=== PATIENT | male | born 1960 | race Hispanic/Latino ===

== ENCOUNTER → 2017-05-29 | Emergency (ER) | payer BC ==
[~2017-05-29] MED LIST: DILAUDID IV ONE; DILAUDID ONE; FLOMAX PO ONE; NORCO 10/325 PO ONE; TORADOL IV ONE; ZOFRAN IV ONE; ZOFRAN ODT ONE
[2017-05-29 18:57] VITALS: BP 152/88
[2017-05-29 19:32] LABS: Basophils % (Auto) 0.3 % (0.0-1.8); Eosinophils % (Auto) 0.2 % (0.0-4.3); Hematocrit 48.3 % (35.5-45.6); Hemoglobin 16.6 gm/dl (11.8-15.2); Lymphocytes # (Auto) 0.9 K/mm3 (1.2-5.4); Lymphocytes % (Auto) 7.3 % (13.4-35.0); Mean Corpuscular HGB Conc 34 % (32-34); Mean Corpuscular Hemoglobin 32 pg (28-32); Mean Corpuscular Volume 93 fl (84-94); Monocytes # (Auto) 0.5 K/mm3 (0.0-0.8); Monocytes % (Auto) 4.1 % (0.0-7.3); Platelet Count 210 K/mm3 (140-440); Red Blood Count 5.21 M/mm3 (3.65-5.03); Red Cell Distribution Width 13.5 % (13.2-15.2)
[2017-05-29 19:39] LABS: Alanine Aminotransferase 15 units/L (7-56); Albumin 4.8 g/dL (3.9-5); BUN/Creatinine Ratio 14; Blood Urea Nitrogen 13 mg/dL (9-20); Calcium 9.3 mg/dL (8.4-10.2); Hemolysis Index 40; Lipase 37 units/L (13-60)
[2017-05-29 19:46] LABS: Bilirubin,Direct < 0.2 mg/dL (0-0.2)
--- NOTE | 2017-05-29 20:25 | Cat Scan Report ---
FINAL REPORT EXAM: CT ABDOMEN PELVIS WO CON HISTORY: llq pain h/o KS TECHNIQUE: CT of the abdomen and pelvis without IV contrast. Coronal and sagittal reconstructed imaging provided. PRIORS: None currently available. FINDINGS: ABDOMEN: Kidneys: 3.6 mm stone mid right kidney. 2.1 mm stone mid to inferior right kidney. 1-2 mm stones in the inferior right kidney. 4.9 mm stone mid to inferior right kidney. Large stone at the right renal pelvis measures 5.7 x 12.4 mm. 1.4 mm stone inferior left kidney. 2 mm stone inferior left kidney. 4.1 mm stone at the left renal pelvis. Localized hydronephrosis to the inferior right renal collecting system which appears mild. No hydronephrosis elsewhere in the right kidney. No left hydronephrosis. Series 2:305 3.4 mm stone approximately 1.6 cm from the left UVJ in the distal left ureter. Liver, gallbladder, stomach, spleen, pancreas, and adrenals are unremarkable. IVC is intact. Mild aortic atherosclerotic disease. No aneurysm. No periaortic or retroperitoneal mass or adenopathy. Colonic diverticulosis. Mild stool in the colon. No wall thickening or inflammatory changes. Appendix is normal. Terminal ilium is unremarkable. Small bowel loops are unremarkable. No obstructive pattern. No free air. No free fluid. PELVIS: Bladder is unremarkable. There is no pelvic mass or adenopathy. Fat containing bilateral inguinal hernias. No strangulation. Bones: No suspicious osseous lesions on this limited examination of the skeleton. Metastatic disease better evaluated with bone scan. IMPRESSION: Bilateral renal stones. Large stones in the right and left renal pelvis. Localized right hydronephrosis to the inferior pole. No left hydronephrosis. Also suspect 3.4 mm stone at the distal left ureter. No acute bowel findings.
--- NOTE | 2017-05-29 23:02 | Emergency Department Report ---
ED General Adult HPI - General Chief complaint: Abdominal Pain Stated complaint: ABD PAIN Time Seen by Provider: 05/29/17 19:28 Source: patient Mode of arrival: Ambulatory Limitations: No Limitations - History of Present Illness Initial comments: Patient is a 56-year-old male past medical history of kidney stones who presents with left flank pain that's been going on for last couple days. Patient states the pain is a 10 out of 10 as an achy type of pain nothing makes it better or worse. The pain radiates to his groin. Patient states that the pain is similar to when he had kidney stones in the past. Patient is nauseous but hasn't vomited. Patient denies having any trauma or any blood in his urine. Patient works for [employer]. Severity scale (0 -10): 10 - Related Data Home Medications Medication Instructions Recorded Confirmed Last Taken Levothyroxine [Synthroid] 50 mcg PO DAILY 05/29/17 05/29/17 Unknown Previous Rx's Medication Instructions Recorded Last Taken Type HYDROcodone/APAP 7.5-325 [[place] 1 each PO Q6HR PRN #13 tablet 05/29/17 Unknown Rx 7.5/325] Meloxicam [Mobic] 15 mg PO DAILY #15 tablet 05/29/17 Unknown Rx Ondansetron [Zofran Odt] 4 mg PO Q8H PRN #20 tab.rapdis 05/29/17 Unknown Rx Tamsulosin HCl [Flomax] 0.4 mg PO QDAY #15 cap.er.24h 05/29/17 Unknown Rx Allergies Allergy/AdvReac Type Severity Reaction Status Date / Time No Known Allergies Allergy Unverified 08/17/13 08:43 ED Review of Systems ROS: Stated complaint: ABD PAIN Other details as noted in HPI Constitutional: denies: chills, fever Eyes: denies: eye pain, eye discharge, vision change ENT: denies: ear pain, throat pain Respiratory: denies: cough, shortness of breath, wheezing Cardiovascular: denies: chest pain, palpitations Endocrine: no symptoms reported Gastrointestinal: abdominal pain, nausea. denies: diarrhea Genitourinary: as per HPI. denies: urgency, dysuria Musculoskeletal: denies: back pain, joint swelling, arthralgia Skin: denies: rash, lesions Neurological: denies: headache, weakness, paresthesias Psychiatric: denies: anxiety, depression Hematological/Lymphatic: denies: easy bleeding, easy bruising ED Past Medical Hx - Past Medical History Previous Medical History?: Yes Hx Kidney Stones: Yes Additional medical history: hypothyroid - Social History Smoking Status: Former Smoker - Medications Home Medications: Home Medications Medication Instructions Recorded Confirmed Last Taken Type HYDROcodone/APAP 7.5-325 [[place] 1 each PO Q6HR PRN #13 tablet 05/29/17 Unknown Rx 7.5/325] Levothyroxine [Synthroid] 50 mcg PO DAILY 05/29/17 05/29/17 Unknown History Meloxicam [Mobic] 15 mg PO DAILY #15 tablet 05/29/17 Unknown Rx Ondansetron [Zofran Odt] 4 mg PO Q8H PRN #20 tab.rapdis 05/29/17 Unknown Rx Tamsulosin HCl [Flomax] 0.4 mg PO QDAY #15 cap.er.24h 05/29/17 Unknown Rx ED Physical Exam - General Limitations: No Limitations General appearance: alert, in no apparent distress - Head Head exam: Present: atraumatic, normocephalic - Eye Eye exam: Present: normal appearance - ENT ENT exam: Present: mucous membranes moist - Neck Neck exam: Present: normal inspection - Respiratory Respiratory exam: Present: normal lung sounds bilaterally. Absent: respiratory distress - Cardiovascular Cardiovascular Exam: Present: regular rate, normal rhythm. Absent: systolic murmur, diastolic murmur, rubs, gallop - GI/Abdominal GI/Abdominal exam: Present: soft, normal bowel sounds, other (left flank tenderness ) - Rectal Rectal exam: Present: deferred - Extremities Exam Extremities exam: Present: normal inspection - Back Exam Back exam: Present: normal inspection - Neurological Exam Neurological exam: Present: alert, oriented X3 - Psychiatric Psychiatric exam: Present: normal affect, normal mood - Skin Skin exam: Present: warm, dry, intact, normal color. Absent: rash ED Course Vital Signs 05/29/17 18:56 Temperature 97.7 F Pulse Rate 77 Respiratory 97 H Rate Blood Pressure 152/88 [Right] - Reevaluation(s) Reevaluation #1: 05/29/17 23:28 Patient is feeling better ED Medical Decision Making - Lab Data Result diagrams: 05/29/17 19:13 05/29/17 19:13 Lab Results 05/29/17 05/29/17 Range/Units 19:13 19:13 WBC 12.0 H (4.5-11.0) K/mm3 RBC 5.21 H (3.65-5.03) M/mm3 Hgb 16.6 H (11.8-15.2) gm/dl Hct 48.3 H (35.5-45.6) % MCV 93 (84-94) fl MCH 32 (28-32) pg MCHC 34 (32-34) % RDW 13.5 (13.2-15.2) % Plt Count 210 (140-440) K/mm3 Lymph % (Auto) 7.3 L (13.4-35.0) % [place] % (Auto) 4.1 (0.0-7.3) % Eos % (Auto) 0.2 (0.0-4.3) % Baso % (Auto) 0.3 (0.0-1.8) % Lymph # 0.9 L (1.2-5.4) K/mm3 [place] # 0.5 (0.0-0.8) K/mm3 Eos # 0.0 (0.0-0.4) K/mm3 Baso # 0.0 (0.0-0.1) K/mm3 Seg Neutrophils % 88.1 H (40.0-70.0) % Seg Neutrophils # 10.6 H (1.8-7.7) K/mm3 Sodium 134 L (137-145) mmol/L Potassium 4.1 (3.6-5.0) mmol/L Chloride 95.9 L (98-107) mmol/L Carbon Dioxide 25 (22-30) mmol/L Anion Gap 17 mmol/L BUN 13 (9-20) mg/dL Creatinine 0.9 (0.8-1.5) mg/dL Estimated GFR > 60 ml/min BUN/Creatinine Ratio 14 % Glucose 93 (75-100) mg/dL Calcium 9.3 (8.4-10.2) mg/dL Total Bilirubin 0.60 (0.1-1.2) mg/dL Direct Bilirubin < 0.2 (0-0.2) mg/dL Indirect Bilirubin 0.4 mg/dL AST 19 (5-40) units/L ALT 15 (7-56) units/L Alkaline Phosphatase 75 (35-129) units/L Total Protein 8.2 (6.3-8.2) g/dL Albumin 4.8 (3.9-5) g/dL Albumin/Globulin Ratio 1.4 % Lipase 37 (13-60) units/L - Radiology Data Radiology results: report reviewed, image reviewed CT abdomen and pelvis: Shows 3.4 mm stone on left distal ureter bilateral reactive meal stones in the right and left renal pelvis - Medical Decision Making Chief medical diagnosis: Left renal stone Differential medical diagnosis: pancreatitis, cholelithiasis, UTI I will give patient IV pain medicine, CBC, CMP, CT scan, urinalysis CT scan is concerning for left renal stone. Patient's renal stone is small enough that it will pass. I will give the patient follow-up for urology and I will give patient oral pain medication patient agrees with plan. Additional verbal discharge instructions were given. Critical care attestation.: If time is entered above; I have spent that time in minutes in the direct care of this critically ill patient, excluding procedure time. ED Disposition Clinical Impression: Calculus of left kidney, Left flank pain Nausea & vomiting Qualifiers: Vomiting type: unspecified Vomiting Intractability: unspecified Qualified Code( s): R11.2 - Nausea with vomiting, unspecified Disposition: DC-01 TO HOME OR SELFCARE Is pt being admited?: No Does the pt Need Aspirin: No Condition: Stable Instructions: How to Strain Your Urine (ED), Kidney Stones (ED), Renal Colic ( ED) Prescriptions: HYDROcodone/APAP 7.5-325 [[place] 7.5/325] 1 each PO Q6HR PRN #13 tablet PRN Reason: Pain Meloxicam [Mobic] 15 mg PO DAILY #15 tablet Ondansetron [Zofran Odt] 4 mg PO Q8H PRN #20 tab.rapdis PRN Reason: Nausea Tamsulosin HCl [Flomax] 0.4 mg PO QDAY #15 cap.er.24h Referrals: SINA COLLINS MD [Primary Care Provider] - 3-5 Days DRAIAN SCALES MD [Staff Physician] - 3-5 Days
== END ==
LOC: ED 18:42
DX: N20.0 Calculus of kidney (principal); R11.2 Nausea with vomiting, unspecified
CPT/HCPCS: 36415; 74176; 80048; 80074; 83690; 85025; 96374; 96375; 96376; 99284; J1170; J1885; J2405; Q0162

== ENCOUNTER 2017-06-06 06:30 | Day surgery (SDC) | payer BC ==
[~2017-06-06 06:30] MED LIST changes: +ANCEF/STERILE WATER 2 GM/20 ML 2 GM/20 ML SYRINGE IV NR; -DILAUDID IV ONE; -DILAUDID ONE; -FLOMAX PO ONE; -NORCO 10/325 PO ONE; -TORADOL IV ONE; -ZOFRAN IV ONE; -ZOFRAN ODT ONE
--- NOTE | 2017-06-06 08:02 | XRay Report ---
AP ABDOMEN: HISTORY: Left renal stone, nephrolithiasis, preop for lithotripsy. The abdominal gas pattern is unremarkable. No masses or organomegaly is identified and there is no gross evidence of free air or fluid. Bilateral renal calcifications are suspected. The largest calcification measures 1 cm overlying the right renal hilum. A 7 mm calcification overlies the left renal. 5 mm calcification is suspected overlying the course of the proximal left ureter. IMPRESSION: Bilateral nephrolithiasis.
[2017-06-06] MEDS ORDERED: NACL BACTERIOSTATIC INFILTRATI ONE (08:10)
--- NOTE | 2017-06-06 08:31 | Anesthesia Consultation ---
Anesthesia Consult and Med Hx Date of service: 06/06/17 - Airway Anesthetic Teeth Evaluation: Good ROM Head & Neck: Adequate Mental/Hyoid Distance: Adequate Mallampati Class: Class II Intubation Access Assessment: Probably Good - Pulmonary Exam CTA: Yes - Cardiac Exam Cardiac Exam: RRR - Pre-Operative Health Status ASA Pre-Surgery Classification: ASA2 Proposed Anesthetic Plan: General - Pulmonary Hx Smoking: Yes (STOPPED X 35 YRS) Hx Sleep Apnea: No (JENNIFER PRE SCREEN LOW RISK) - Cardiovascular System Hx Hypertension: No - Gastrointestinal Hx Gastroesophageal Reflux Disease: Yes - Endocrine Hx Hypothyroidism: Yes (ON DAILY MEDS) - Other Systems Hx Cancer: No
--- NOTE | 2017-06-06 08:32 | Anesthesia Day of Surgery ---
Anesthesia Day of Surgery - Day of Surgery Patient Examined: Yes Patient H&P Reviewed: Yes Patient is NPO: Yes
[2017-06-06] MEDS ORDERED: VERSED IV NR (09:00)
[2017-06-06] MEDS ORDERED: PEPCID IV NR (09:00)
[2017-06-06] MEDS ORDERED: NACL 0.9% 1000 ML 1,000 ML IV SCH (09:00)
[2017-06-06] MEDS ORDERED: DIPRIVAN 10 MG/ML IV ONE (09:56)
[2017-06-06] MEDS ORDERED: XYLOCAINE CARDIAC IV ONE ×2 (09:56→09:57)
[2017-06-06] MEDS ORDERED: XYLOCAINE MPF 2% ONE ×2 (09:57→10:01)
[2017-06-06] MEDS ORDERED: ANCEF/STERILE WATER 2 GM/20 ML 2 GM/20 ML SYRINGE IV NR (10:00)
[2017-06-06] MEDS ORDERED: DILAUDID ONE ×3 (10:05→12:40)
[2017-06-06] MEDS ORDERED: NEO SYNEPHRINE/NS Syringe(OR USE) IV ONE (10:14)
[2017-06-06] MEDS ORDERED: WATER FOR IRRIG STERILE IR ONE (10:20)
--- NOTE | 2017-06-06 10:51 | Post Operative Note ---
Date of procedure: 06/13/17 Pre-op diagnosis: bilat stones Post-op diagnosis: same Findings: cysto rpgs r j stent eswl right Procedure: as above Anesthesia: JOANNA Surgeon: SARINA ARNOLD Estimated blood loss: none Pathology: none Condition: stable Disposition: PACU
--- NOTE | 2017-06-06 10:52 | Discharge Summary ---
Short Stay Discharge Plan Activity: other (no straining ) Weight Bearing Status: Full Weight Bearing Diet: regular, low fat, low salt Special Instructions: other (inc fluids ) Durable Medical Equipment Needed Upon Discharge: other (has j stent ) Follow up with: KATHERYN MATIAS MD [Staff Physician] - 7 Days
[2017-06-06] MEDS ORDERED: PERCOCET 5/325 ONE (12:27)
[2017-06-06] MEDS ORDERED: PERCOCET 5/325 PO ONE (12:27)
[2017-06-06] MEDS ORDERED: TRANSDERM-SCOP TD ONE (13:00)
[2017-06-06] MEDS ORDERED: ZOFRAN ONE (13:18)
--- NOTE | 2017-06-06 14:02 | Operative Report ---
PREOPERATIVE DIAGNOSES: Bilateral renal stones. POSTOPERATIVE DIAGNOSIS: Suspect passed the left stones with a right renal pelvic significant stone and smaller peripheral stone. PROCEDURE: Cystoscopy, retrograde, right double-J stent, right ESWL. SURGEON SARINA ARNOLD M.D. ANESTHESIA: General. FINDINGS: This is a gentleman who apparently had intermittent obstruction both sides, but he said he passed his left stone. We are taken for cystoscopy just to be sure and to place a stent on the right. PROCEDURE: The patient brought to the operating room and placed on the operating table. Following induction of anesthesia, placed in lithotomy position, prepped and draped in usual sterile fashion. Retrograde on the left showed excellent drainage. No sign of a stone either on the deputy county attorney or drainage. On the right side, we see a renal pelvic stone possibly some small caliceal stones which were quite small. Retrograde on the right also showed some mild to moderate dilatation of renal pelvis. A wire coiled in the kidney and a double J coiled right around the stone in excellent position. At this point, lithotripsy was carried out with a renal pause. He was brought to the lithotripsy unit. Stone was easily localized right in the center of the double J. Shocks were begun at 1 kV increased to 5 kV. A total of 2500 shocks were given. The patient tolerated the procedure well and brought to recovery in stable condition. JOB# [id number] TAVO/INGA
--- NOTE | 2017-06-06 15:05 | Post Anesthesia Evaluation ---
- Post Anesthesia Evaluation Patient Participated: Yes Airway Patent: Yes Stable Respiratory Function: Yes Nausea/Vomiting: No Temp > 96.8F: Yes Pain Manageable: Yes Adequeate Hydration: Yes Anesthesia Complications: No Block Receding Appropriately: Not Applicable
[2017-06-06 17:19] VITALS: BP 119/67
--- NOTE | 2017-06-07 07:39 | Fluoroscopy Report ---
FLUOROSCOPY RETROGRADE UROGRAPHY: HISTORY: Calculus of kidney. FINDINGS: Fluoroscopy was provided by radiology during retrograde urography by the urologist. 11 fluoroscopic images were captured. 1 cm filling defect consistent with a stone is identified in the right renal pelvis. No evidence for obstruction. Subsequent images demonstrate placement of a right ureteral stent which adequately drains the right collecting system on the final image. The left retrograde pyelogram was normal. IMPRESSION: Stone in the right renal pelvis. Right ureteral stent placement.
== END 2017-06-06 14:52 | disposition home or self-care (01) ==
LOC: OR 06:30
PROVIDERS: ATTEND Urology
DX: N20.0 Calculus of kidney (principal); K21.9 Gastro-esophageal reflux disease without esophagitis; E03.9 Hypothyroidism, unspecified; Z87.891 Personal history of nicotine dependence
CPT/HCPCS: 50590; 52332; 74018; 74420; A4217; C1758; J0690; J1170; J2250; J2370; J2405; J2704; J7030; Q9967; J2001

== ENCOUNTER 2017-07-08 05:32 | Emergency (ER) | payer BC ==
[2017-07-08] MEDS ORDERED: TORADOL ONE (05:37)
[2017-07-08] MEDS ORDERED: ZOFRAN ONE (05:37)
[2017-07-08] MEDS ORDERED: NACL 0.9% 1000 ML 1,000 ML ONE ×2 (05:42→10:10)
[2017-07-08] MEDS ORDERED: DILAUDID ONE (05:42)
[2017-07-08] MEDS ORDERED: ZOFRAN IV ONE (06:18)
[2017-07-08] MEDS ORDERED: DILAUDID IV ONE ×2 (06:19→09:57)
[2017-07-08] MEDS ORDERED: TORADOL IV ONE (06:19)
[2017-07-08 07:03] LABS: Basophils # (Auto) 0.1 K/mm3 (0.0-0.1); Basophils % (Auto) 0.6 % (0.0-1.8); Eosinophils # (Auto) 0.1 K/mm3 (0.0-0.4); Eosinophils % (Auto) 0.9 % (0.0-4.3); Hemoglobin 15.1 gm/dl (11.8-15.2); Lymphocytes # (Auto) 1.7 K/mm3 (1.2-5.4); Mean Corpuscular HGB Conc 34 % (32-34); Mean Corpuscular Hemoglobin 31 pg (28-32); Mean Corpuscular Volume 94 fl (84-94); Monocytes # (Auto) 0.8 K/mm3 (0.0-0.8); Monocytes % (Auto) 7.5 % (0.0-7.3); Platelet Count 201 K/mm3 (140-440); Red Cell Distribution Width 13.4 % (13.2-15.2)
[2017-07-08] MEDS ORDERED: NORCO 5/325 PO ONE (07:34)
--- NOTE | 2017-07-08 09:27 | Ultrasound Report ---
ULTRASOUND ABDOMEN COMPLETE: TECHNIQUE: Transabdominal ultrasound with color Doppler interrogation. HISTORY: Left flank pain, abdominal pain. COMPARISON: CT abdomen pelvis without contrast dated 05/29/17. FINDINGS: LIVER: Normal. BILIARY SYSTEM: There is a small amount of sludge within the gallbladder lumen. No shadowing gallstones. No evidence for abnormal dilatation, wall thickening or surrounding fluid. The CBD measures 2.4 mm. PANCREAS: Normal. SPLEEN: Normal. KIDNEYS: The right kidney measures 10.2 cm. The left kidney measures 11.4 cm. There are a few scattered calyceal stones within both kidneys. Minimal left hydronephrosis is suspected. No evidence for cystic disease, hypervascular mass or perinephric fluid. The bladder is unremarkable. AORTA/IVC: Normal. ASCITES: None. IMPRESSION: Bilateral nephrolithiasis. Minimal left hydronephrosis. Small amount of sludge in the gallbladder.
[2017-07-08] MEDS ORDERED: NACL 0.9% 1000 ML 1,000 ML IV ONE (10:21)
--- NOTE | 2017-07-08 11:18 | Emergency Department Report ---
ED Abdominal Pain HPI - General Chief Complaint: Abdominal Pain Stated Complaint: KIDNEY STONES Time Seen by Provider: 07/08/17 07:22 Source: patient Mode of arrival: Ambulatory Limitations: No Limitations - History of Present Illness Initial Comments: left flank pain x 24 hrs, nonradiating. Feels like his kidney stone. Sudden onset. +N/V. Last kidney stone 2 weeks ago. Severity scale (0 -10): 10 Quality: sharp Improves With: nothing Worsens With: nothing - Related Data Home Medications Medication Instructions Recorded Confirmed Last Taken Levothyroxine [Synthroid] 50 mcg PO DAILY 05/29/17 05/31/17 06/05/17 Previous Rx's Medication Instructions Recorded Last Taken Type HYDROcodone/APAP 7.5-325 [[place] 1 each PO Q6HR PRN #13 tablet 05/29/17 Unknown Rx 7.5/325] Meloxicam [Mobic] 15 mg PO DAILY #15 tablet 05/29/17 05/31/17 Rx Ondansetron [Zofran Odt] 4 mg PO Q8H PRN #20 tab.rapdis 05/29/17 Unknown Rx Tamsulosin HCl [Flomax] 0.4 mg PO QDAY #15 cap.er.24h 05/29/17 06/05/17 Rx Allergies Allergy/AdvReac Type Severity Reaction Status Date / Time No Known Allergies Allergy Verified 05/31/17 14:26 ED Review of Systems ROS: Stated complaint: KIDNEY STONES Other details as noted in HPI Comment: All other systems reviewed and negative Gastrointestinal: abdominal pain, nausea, vomiting ED Past Medical Hx - Past Medical History Previous Medical History?: Yes Hx Hypertension: No Hx GERD: Yes Hx Kidney Stones: Yes Hx HIV: No Additional medical history: hypothyroid - Social History Smoking Status: Never Smoker Substance Use Type: None - Medications Home Medications: Home Medications Medication Instructions Recorded Confirmed Last Taken Type HYDROcodone/APAP 7.5-325 [[place] 1 each PO Q6HR PRN #13 tablet 05/29/17 05/31/17 Unknown Rx 7.5/325] Levothyroxine [Synthroid] 50 mcg PO DAILY 05/29/17 05/31/17 06/05/17 History Meloxicam [Mobic] 15 mg PO DAILY #15 tablet 05/29/17 06/06/17 05/31/17 Rx Ondansetron [Zofran Odt] 4 mg PO Q8H PRN #20 tab.rapdis 05/29/17 05/31/17 Unknown Rx Tamsulosin HCl [Flomax] 0.4 mg PO QDAY #15 cap.er.24h 05/29/17 05/31/17 Rx ED Physical Exam - General Limitations: No Limitations General appearance: alert, in distress (mild) - Head Head exam: Present: atraumatic, normocephalic - Eye Eye exam: Present: normal appearance - ENT ENT exam: Present: mucous membranes moist - Neck Neck exam: Present: normal inspection - Respiratory Respiratory exam: Present: normal lung sounds bilaterally. Absent: respiratory distress - Cardiovascular Cardiovascular Exam: Present: regular rate, normal rhythm. Absent: systolic murmur, diastolic murmur, rubs, gallop - GI/Abdominal GI/Abdominal exam: Present: soft, tenderness (LUQ, no cva tenderness), normal bowel sounds - Rectal Rectal exam: Present: deferred - Extremities Exam Extremities exam: Present: normal inspection - Back Exam Back exam: Present: normal inspection - Neurological Exam Neurological exam: Present: alert, oriented X3 - Psychiatric Psychiatric exam: Present: normal affect, normal mood - Skin Skin exam: Present: warm, dry, intact, normal color. Absent: rash ED Course Vital Signs 07/08/17 07/08/17 07/08/17 05:40 05:50 09:15 Respiratory 18 18 18 Rate 07/08/17 10:19 Respiratory 18 Rate ED Medical Decision Making - Lab Data Result diagrams: 07/08/17 06:20 - Radiology Data Radiology results: report reviewed - Medical Decision Making 57-year-old male with past medical history kidney stones and presents with sudden onset left flank pain. Patient in mild distress on presentation. Vitals are stable. Patient is name was controlled in the ER. Renal ultrasound shows bilateral nephrolithiasis with mild left hydronephrosis. Urinalysis shows significant pyuria without evidence of nitrites. Likely this is due to irritation versus inflammation. I will suspicion for infectious etiology. Neuro be sent for culture. Patient has had numerous kidney stones before. He' ll follow-up with his urologist for further management of this issue. Patient says he has pain medication at home and he does not require any prescriptions at this time. Critical care attestation.: If time is entered above; I have spent that time in minutes in the direct care of this critically ill patient, excluding procedure time. ED Disposition Clinical Impression: Kidney stone on left side Disposition: DC-01 TO HOME OR SELFCARE Is pt being admited?: No Does the pt Need Aspirin: No Condition: Stable Instructions: Kidney Stones (ED) Additional Instructions: Please follow up with your urologist for further management of this issue. Referrals: SINA COLLINS MD [Primary Care Provider] - 3-5 Days
[2017-07-08 12:12] LABS: Bilirubin,Urine NEG (Negative); Blood,Urine LG (Negative); Calcium Oxalate Crystals,Urine FEW; Color,Urine Yellow (Yellow); Mucus,Urine 3+ /HPF; Urobilinogen,Urine < 2.0 mg/dL (<2.0)
== END 2017-07-08 13:45 | disposition home or self-care (01) ==
LOC: ED 05:32
DX: N20.0 Calculus of kidney (principal); K21.9 Gastro-esophageal reflux disease without esophagitis; E03.9 Hypothyroidism, unspecified
CPT/HCPCS: 36415; 76700; 81001; 83690; 83735; 84100; 85025; 87086; 96361; 96374; 96375; 96376; 99284; J1170; J1885; J2405; J7030

== ENCOUNTER 2017-07-15 07:07 | Outpatient (CLI) | payer BC ==
--- NOTE | 2017-07-15 09:25 | Cat Scan Report ---
CT ABDOMEN PELVIS WITHOUT CONTRAST: HISTORY: History of kidney stones, left-sided pain. COMPARISON: 05/29/17. TECHNIQUE: Helical CT in 1.25mm intervals without IV contrast. Sagittal and coronal reconstructions. FINDINGS: Lung bases: Normal. Liver: Normal. Biliary system: Normal. Pancreas: Normal. Spleen: Normal. Kidneys/ureters/bladder: The kidneys are normal size, contour and position. No focal renal lesion is identified on noncontrast CT. Bilateral renal stones are identified. There are 4 stones in the mid to inferior right kidney ranging from 1 mm to 5 mm. There are 2 stones in the inferior left kidney measuring up to 2 mm. 2 left ureteral stones are identified. A 6 x 9 x 5 mm stone is identified in the proximal left ureter with mild left hydronephrosis. There is also a smaller stone in the distal left ureter measuring 2 x 3 x 4 mm. The bladder is empty but grossly unremarkable. Adrenal glands: Normal. Aorta: Normal. Intestines: Normal. Appendix: Normal. Ascites: None. Adenopathy: None. Musculoskeletal: Normal. IMPRESSION: Bilateral nephrolithiasis as described. 2 left ureteral stones are also identified resulting in mild left hydronephrosis.
== END 2017-07-15 07:08 | disposition home or self-care (01) ==
LOC: CT 07:07
PROVIDERS: ATTEND Urology
DX: N20.2 Calculus of kidney with calculus of ureter (principal); N13.30 Unspecified hydronephrosis
CPT/HCPCS: 74176

== ENCOUNTER 2017-07-15 07:52 | Emergency (ER) | payer BC ==
--- NOTE | 2017-07-15 08:12 | Emergency Department Report ---
HPI - General Chief Complaint: Pain General Time Seen by Provider: 07/15/17 08:12 - HPI HPI: Patient here reports that he has a history of kidney stones and he has a flareup. He reports that he had a CT scan this morning that was ordered by urologists and he needs to be seen for pain management. He said this is been ongoing for 2 weeks and he was seen in the emergency room recently and was treated for kidney stones. He also had a procedure for right kidney stone one month ago that was done by Dr. Cordova. Patient reports pain is 7 out of 10 and is radiating into his left side. Pain is sharp and colicky. Nothing makes it better and nothing makes it worse. Denies any nausea or vomiting. Denies any urinary symptoms. Denies any blood in his urine. Denies any fever or chills. CT scan from this morning still pending ED Past Medical Hx - Past Medical History Previous Medical History?: Yes Hx Hypertension: No Hx GERD: Yes Hx Kidney Stones: Yes Hx HIV: No Additional medical history: hypothyroid - Surgical History Past Surgical History?: No - Family History Family history: no significant - Social History Smoking Status: Never Smoker Substance Use Type: Alcohol - Medications Home Medications: Home Medications Medication Instructions Recorded Confirmed Last Taken Type Levothyroxine [Synthroid] 50 mcg PO DAILY 05/29/17 05/31/17 06/05/17 History Meloxicam [Mobic] 15 mg PO DAILY #15 tablet 05/29/17 06/06/17 05/31/17 Rx HYDROcodone/APAP 7.5-325 [[place] 1 each PO Q6HR PRN #14 tablet 07/15/17 Unknown Rx 7.5-325 mg TAB] Ondansetron [Zofran Odt] 4 mg PO Q8H PRN #12 tab.rapdis 07/15/17 Unknown Rx Tamsulosin HCl [Flomax] 0.4 mg PO QDAY #5 cap.er.24h 07/15/17 Unknown Rx ED Review of Systems ROS: Stated complaint: KIDNEY STONE Other details as noted in HPI Comment: All other systems reviewed and negative Constitutional: no symptoms reported Eyes: denies: eye pain Respiratory: no symptoms reported Cardiovascular: denies: chest pain, palpitations, dyspnea on exertion, edema, syncope, paroxysmal nocturnal dyspnea Gastrointestinal: denies: abdominal pain, nausea, vomiting, diarrhea, constipation, hematemesis, melena, hematochezia Genitourinary: denies: urgency, dysuria, frequency, hematuria, discharge, testicular pain, testicular mass Musculoskeletal: back pain (left flank pain). denies: joint swelling, arthralgia, myalgia Skin: denies: rash Neurological: denies: headache, weakness, numbness, paresthesias, confusion, abnormal gait, vertigo Physical Exam - Physical Exam Vital Signs: Vital Signs 07/15/17 07:57 Temperature 98.8 F Pulse Rate 74 Blood Pressure 157/97 O2 Sat by Pulse 97 Oximetry Vital Signs 07/15/17 07/15/17 07/15/17 07:57 08:48 09:16 Temperature 98.8 F Pulse Rate 74 Respiratory 16 16 Rate Blood Pressure 157/97 O2 Sat by Pulse 97 Oximetry General: This is a 57-year-old male well-nourished well-developed in no acute distress. Physical Exam: Head: Normocephalic, atraumatic, no abrasion, no bruising and no contusion. Eyes: Biateral pupils equal and reactive to light, bilateral EOM intact.. Bilateral conjunctival and sclera without injection, normal accommodation. No nystagmus Mouth: Mucosa dry, no pharyngeal exudate or erythema. No peritonsillar abscesses. Uvula is midline and oral airways patent. Neck: Supple, No Cervical adenopathy, full range of motion and no C-spine tenderness. No swelling or tracheal deviation normal reflexes Cardiovascular: S1, S2. Regular rate and rhythm. No murmur. Capillary refill is less then 3 seconds. Lungs: Clear to auscultate bilaterally. No rhonchi, wheezes or rales. No chest wall tenderness. No chest contusion. No bruising to chest. Abdomen: Non-tender to palpate in all quadrants, no guarding or rebound tenderness, positive bowel sounds in all quadrants. No CVA tenderness. No hernia, bruit or mass. No rigidity or distention. Extremities: No clubbing, cyanosis or edema. +2 pulses. No neurovascular compromise Skin: Clean, dry and intact. No rash or lesions. Back: No vertebral tenderness, no paraspinal tenderness. Ambulates without any difficulties. Psych: Normal mood and behavior ED Course Vital Signs 07/15/17 07:57 Temperature 98.8 F Pulse Rate 74 Blood Pressure 157/97 O2 Sat by Pulse 97 Oximetry - Reevaluation(s) Reevaluation #1: 07/15/17 08:[address] Sanchez he reviewed patient CT a scan of abdomen and pelvis wo contrast. UA negative. cbc, bmp PT/PTT ordered. Patient started on ns x 1litre, iv, zofran 4 mg iv, morphine 6 mg iv and oxycodone 10mg. NPO at present per Dr. Sanchez. Stable at present Reevaluation #2: 07/15/17 10:[address] Meade WHO is urology and he will be coming by to see patient. Patient updated on lab work, CT scan and plans. Reevaluation #3: 07/15/17 10:57 Seen bu Urologist. KUB ordered. IVF NS ED Medical Decision Making - Lab Data Result diagrams: 07/15/17 08:50 07/15/17 08:50 Lab Results 07/15/17 07/15/17 07/15/17 Range/Units 08:50 08:50 08:50 WBC 7.4 (4.5-11.0) K/mm3 RBC 4.04 (3.65-5.03) M/mm3 Hgb 13.1 (11.8-15.2) gm/dl Hct 37.6 (35.5-45.6) % MCV 93 (84-94) fl MCH 32 (28-32) pg MCHC 35 H (32-34) % RDW 13.4 (13.2-15.2) % Plt Count 155 (140-440) K/mm3 Lymph % (Auto) 12.2 L (13.4-35.0) % [place] % (Auto) 10.4 H (0.0-7.3) % Eos % (Auto) 0.4 (0.0-4.3) % Baso % (Auto) 0.8 (0.0-1.8) % Lymph # 0.9 L (1.2-5.4) K/mm3 [place] # 0.8 (0.0-0.8) K/mm3 Eos # 0.0 (0.0-0.4) K/mm3 Baso # 0.1 (0.0-0.1) K/mm3 Seg Neutrophils % 76.2 H (40.0-70.0) % Seg Neutrophils # 5.7 (1.8-7.7) K/mm3 PT 13.5 (12.2-14.9) Sec. INR 0.98 (0.87-1.13) APTT 30.3 (24.2-36.6) Sec. Sodium 140 (137-145) mmol/L Potassium 4.1 (3.6-5.0) mmol/L Chloride 101.1 (98-107) mmol/L Carbon Dioxide 27 (22-30) mmol/L Anion Gap 16 mmol/L BUN 14 (9-20) mg/dL Creatinine 1.5 (0.8-1.5) mg/dL Estimated GFR 48 ml/min BUN/Creatinine Ratio 9 % Glucose 119 H (75-100) mg/dL Calcium 8.9 (8.4-10.2) mg/dL Urine Color (Yellow) Urine Turbidity (Clear) Urine pH (5.0-7.0) Ur Specific [place] (1.003-1.030) Urine Protein (Negative) mg/dL Urine Glucose (UA) (Negative) mg/dL Urine Ketones (Negative) mg/dL Urine Blood (Negative) Urine Nitrite (Negative) Urine Bilirubin (Negative) Urine Urobilinogen (<2.0) mg/dL Ur Leukocyte Esterase (Negative) Urine WBC (Auto) (0.0-6.0) /HPF Urine RBC (Auto) (0.0-6.0) /HPF U Epithel Cells (Auto) (0-13.0) /HPF Urine Bacteria (Auto) (Negative) /HPF Urine Mucus /HPF 07/15/17 Range/Units Unknown WBC (4.5-11.0) K/mm3 RBC (3.65-5.03) M/mm3 Hgb (11.8-15.2) gm/dl Hct (35.5-45.6) % MCV (84-94) fl MCH (28-32) pg MCHC (32-34) % RDW (13.2-15.2) % Plt Count (140-440) K/mm3 Lymph % (Auto) (13.4-35.0) % [place] % (Auto) (0.0-7.3) % Eos % (Auto) (0.0-4.3) % Baso % (Auto) (0.0-1.8) % Lymph # (1.2-5.4) K/mm3 [place] # (0.0-0.8) K/mm3 Eos # (0.0-0.4) K/mm3 Baso # (0.0-0.1) K/mm3 Seg Neutrophils % (40.0-70.0) % Seg Neutrophils # (1.8-7.7) K/mm3 PT (12.2-14.9) Sec. INR (0.87-1.13) APTT (24.2-36.6) Sec. Sodium (137-145) mmol/L Potassium (3.6-5.0) mmol/L Chloride (98-107) mmol/L Carbon Dioxide (22-30) mmol/L Anion Gap mmol/L BUN (9-20) mg/dL Creatinine (0.8-1.5) mg/dL Estimated GFR ml/min BUN/Creatinine Ratio % Glucose (75-100) mg/dL Calcium (8.4-10.2) mg/dL Urine Color Yellow (Yellow) Urine Turbidity Hazy (Clear) Urine pH 5.0 (5.0-7.0) Ur Specific [place] 1.031 H (1.003-1.030) Urine Protein 30 mg/dl (Negative) mg/dL Urine Glucose (UA) Neg (Negative) mg/dL Urine Ketones Neg (Negative) mg/dL Urine Blood Lg (Negative) Urine Nitrite Neg (Negative) Urine Bilirubin Neg (Negative) Urine Urobilinogen < 2.0 (<2.0) mg/dL Ur Leukocyte Esterase Neg (Negative) Urine WBC (Auto) 3.0 (0.0-6.0) /HPF Urine RBC (Auto) > 182.0 (0.0-6.0) /HPF U Epithel Cells (Auto) < 1.0 (0-13.0) /HPF Urine Bacteria (Auto) 1+ (Negative) /HPF Urine Mucus Few /HPF Urine culture pending - EKG Data Interpretation: subendocardial ischemia - Radiology Data Radiology results: report reviewed CT abdomen and pelvis without contrast reveal patient with bilateral nephrolithiasis. 2 left urethral stone are also identifies resulted in mild left hydronephrosis. Patient states with 6 cm stone and proximal left ureter and2 cm stoneand distal ureter. Bladder is normal. Intestines are normaland appendix is normal. Pancreas, spleen, biliary system, lung bases and liverare normal. No focal renal lesions identified. Bilateral renal stones are identified. Therefore stones in the mid to inferior right kidney region from 1 mm to 5 mm and her 2 stones in the inferior left kidney measuring up to 2 mm. KUB reveals probably left ureter stone, which was already confirmed with CT scan - Medical Decision Making ED course: Patient here complaining of flareup of kidney stone pain. He was treated in emergency room approximately one week ago for kidney stone and his pain is been ongoing for 2 weeks. Patient is also seen in [place] urology Dr. Arnold and he had right leg lithotripsy for ureteral stones on 06/07/2017. Prior CT scan within the last 2 weeks showed the patient had 1 left urethral stone today he has to. Patient's was given IV fluid 2 L and 1 L increments and a total of 8 mg of morphine IV while in emergency room, Zofran 4 mg IV and Roxicet 10 by mouth. Patient voiced relief of pain. He was seen by urologist and had KUB ordered which showed probably left ureter stone which has already confirmed by CT scan today that he has 2 stones in his left ureter. Patient was not in any significant pain prior to treatment but he said his pain was 7 out of 10. Patient's per urology will have lithotripsy on Saturday or and to be discharged home on pain medication and to follow-up in [place] urology office. CT scan, KUB and lab results given to patient and he was understanding diagnosis and treatment plan. Patient discharged home in stable condition with prescriptions for Zofran, Flomax, Murray and called [place] [facility]. Critical care attestation.: If time is entered above; I have spent that time in minutes in the direct care of this critically ill patient, excluding procedure time. ED Disposition Clinical Impression: Renal calculus, bilateral, Left ureteral calculus, Renal colic on left side, Hydronephrosis, left Disposition: DC-01 TO HOME OR SELFCARE Is pt being admited?: No Does the pt Need Aspirin: No Condition: Stable Instructions: Renal Colic (ED), Kidney Stones (ED), Flank Pain (ED), Hydronephrosis (ED) Additional Instructions: Please follow up with urologist as discussed. 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 Prescriptions: HYDROcodone/APAP 7.5-325 [[place] 7.5-325 mg TAB] 1 each PO Q6HR PRN #14 tablet PRN Reason: Pain Ondansetron [Zofran Odt] 4 mg PO Q8H PRN #12 tab.rapdis PRN Reason: Nausea Tamsulosin HCl [Flomax] 0.4 mg PO QDAY #5 cap.er.24h Referrals: SARINA ARNOLD MD [Primary Care Provider] - 24 Hours
[2017-07-15] MEDS ORDERED: NACL 0.9% 1000 ML 1,000 ML IV ONE ×2 (08:20→10:57)
[2017-07-15 08:32] LABS: Bacteria,Urine 1+ /HPF (Negative); Bilirubin,Urine NEG (Negative); Blood,Urine LG (Negative); Color,Urine Yellow (Yellow); Mucus,Urine FEW /HPF; Urobilinogen,Urine < 2.0 mg/dL (<2.0)
[2017-07-15] MEDS ORDERED: ROXICODONE PO ONE (08:32)
[2017-07-15] MEDS ORDERED: MORPHINE IV ONE (08:32)
[2017-07-15] MEDS ORDERED: ZOFRAN IV ONE (08:32)
[2017-07-15] MEDS ORDERED: TORADOL IV ONE (08:32)
[2017-07-15 08:42] LABS: RBC,Urine > 182.0 /HPF (0.0-6.0)
[2017-07-15] MEDS ORDERED: MORPHINE ONE ×2 (08:42)
[2017-07-15 09:07] LABS: Basophils # (Auto) 0.1 K/mm3 (0.0-0.1); Basophils % (Auto) 0.8 % (0.0-1.8); Eosinophils % (Auto) 0.4 % (0.0-4.3); Hematocrit 37.6 % (35.5-45.6); Hemoglobin 13.1 gm/dl (11.8-15.2); Lymphocytes # (Auto) 0.9 K/mm3 (1.2-5.4); Lymphocytes % (Auto) 12.2 % (13.4-35.0); Mean Corpuscular HGB Conc 35 % (32-34); Mean Corpuscular Hemoglobin 32 pg (28-32); Mean Corpuscular Volume 93 fl (84-94); Monocytes # (Auto) 0.8 K/mm3 (0.0-0.8); Monocytes % (Auto) 10.4 % (0.0-7.3); Platelet Count 155 K/mm3 (140-440); Red Blood Count 4.04 M/mm3 (3.65-5.03); Red Cell Distribution Width 13.4 % (13.2-15.2)
[2017-07-15] MEDS ORDERED: MORPHINE IV PRN (09:14)
[2017-07-15 09:24] LABS: INR 0.98 (0.87-1.13)
[2017-07-15 09:25] LABS: Partial Thromboplastin Time 30.3 Sec. (24.2-36.6)
[2017-07-15 09:31] LABS: Calcium 8.9 mg/dL (8.4-10.2)
--- NOTE | 2017-07-15 11:51 | XRay Report ---
ABDOMEN, 2 views: History: Left kidney stones. There is no evidence of free air beneath the diaphragms. The gas pattern within the abdomen is unremarkable. There is no evidence of bowel dilatation or significant air-fluid levels. The renal shadows are obscured by bowel gas. There is however a 4 mm calcification just to the left of the L3-4 disc space which is presumably within the mid left ureter. IMPRESSION: Probable left ureteral stone as described.
[2017-07-15 13:03] VITALS: BP 148/88
== END 2017-07-15 13:02 | disposition home or self-care (01) ==
LOC: ED 07:52
DX: N20.0 Calculus of kidney (principal); N20.1 Calculus of ureter; N13.30 Unspecified hydronephrosis; K21.9 Gastro-esophageal reflux disease without esophagitis; E03.9 Hypothyroidism, unspecified
CPT/HCPCS: 36415; 74019; 80048; 81001; 85025; 85610; 85730; 87086; 96374; 96375; 99283; J1885; J2270; J2405; J7030

== ENCOUNTER 2017-07-18 09:54 | Day surgery (SDC) | payer BC ==
[~2017-07-18 09:54] MED LIST changes: -ANCEF/STERILE WATER 2 GM/20 ML 2 GM/20 ML SYRINGE IV NR; +LACTATED RINGERS 1,000 ML IV SCH
[2017-07-18] MEDS ORDERED: DIPRIVAN 10 MG/ML IV ONE ×3 (12:00→13:17)
[2017-07-18] MEDS ORDERED: ANCEF/STERILE WATER 2 GM/20 ML IV NR (12:00)
--- NOTE | 2017-07-18 12:01 | Anesthesia Day of Surgery ---
Anesthesia Day of Surgery - Day of Surgery Patient Examined: Yes Patient H&P Reviewed: Yes Patient is NPO: Yes
--- NOTE | 2017-07-18 12:01 | Anesthesia Consultation ---
Anesthesia Consult and Med Hx Date of service: 07/18/17 - Airway Anesthetic Teeth Evaluation: Bridges ROM Head & Neck: Adequate Mental/Hyoid Distance: Adequate Mallampati Class: Class I Intubation Access Assessment: Good - Pulmonary Exam CTA: Yes - Cardiac Exam Cardiac Exam: RRR - Pre-Operative Health Status ASA Pre-Surgery Classification: ASA2 Proposed Anesthetic Plan: General - Pulmonary Hx Smoking: Yes (STOPPED X 35 YRS) Hx Sleep Apnea: No (JENNIFER PRE SCREEN LOW RISK) - Cardiovascular System Hx Hypertension: No - Gastrointestinal Hx Gastroesophageal Reflux Disease: Yes - Endocrine Hx Hypothyroidism: Yes (ON DAILY MEDS) - Other Systems Hx Cancer: No
[2017-07-18] MEDS ORDERED: DILAUDID IV PRN (12:02)
[2017-07-18] MEDS ORDERED: XYLOCAINE MPF 2% ONE (12:15)
[2017-07-18] MEDS ORDERED: WATER FOR IRRIG STERILE IR ONE (12:33)
[2017-07-18] MEDS ORDERED: OMNIPAQUE 300 MG/50 ML (CATH LAB) IV ONE (12:33)
[2017-07-18] MEDS ORDERED: VERSED ONE (12:56)
[2017-07-18] MEDS ORDERED: VERSED IV NR (13:00)
--- NOTE | 2017-07-18 13:27 | Post Operative Note ---
Date of procedure: 07/18/17 Pre-op diagnosis: left ureteral stones Post-op diagnosis: same Findings: as above Procedure: cysto stone extr stent l eswl Anesthesia: GETA Surgeon: SARINA ARNOLD Estimated blood loss: none Pathology: list (stone) Specimen disposition: given to patient/family Condition: stable Disposition: PACU
--- NOTE | 2017-07-18 13:29 | Discharge Summary ---
Short Stay Discharge Plan Activity: other (no straining ) Weight Bearing Status: Full Weight Bearing Diet: regular Special Instructions: other (inc fluids ) Durable Medical Equipment Needed Upon Discharge: other (stent ) Follow up with: AKOSUA BERGMAN [Other] - 7 Days SARINA ARNOLD MD [Staff Physician] - 7 Days
[2017-07-18] MEDS ORDERED: ePHEDrine SULFATE ONE (13:55)
--- NOTE | 2017-07-18 13:58 | Operative Report ---
PREOPERATIVE DIAGNOSIS: Two prominent stones, left ureter. POSTOPERATIVE DIAGNOSIS: Two prominent stones, left ureter. PROCEDURE: Cystoscopy, extraction of stone at the left ureter with a retrograde, insertion of a double-J stent, left ESWL. SURGEON: Demetri Webster MD ANESTHESIA: General. FINDINGS: The gentleman with two ureteral stones, smaller one in the distal ureter, which turned out to be very distal and a larger one in the upper ureter. He now presents with intermittent flank pain for treatment. DESCRIPTION OF PROCEDURE: The patient was brought to the operating room and placed on the operating table. Following induction of anesthesia, placed in lithotomy position, prepped and draped in usual sterile fashion. Cystourethroscopy showed edema at the orifice and the stone with a grasper was extracted. At this point, retrograde showed good drainage in the lower ureter with a stone around L3 level. A Glidewire coiled in the kidney and the stone was seemed to be wedged there so we placed a stent and brought him for lithotripsy. We thought this would be less traumatic to the ureter than going up to the upper ureter. At this point, the stone was easily localized along the stent in both the AP and oblique image. Shocks were begun at 1 kV increased to 6 kV. A total of 2800 shocks were given. The patient tolerated the procedure well. The plan will be followed up possible ureteroscopy based on the followup radiographic studies, possible removal of stent. I called his . I went out to the waiting area, she was not there, I left the message. JOB# [id number] TAVO/INGA
[2017-07-18 15:48] VITALS: BP 136/79
--- NOTE | 2017-07-18 17:24 | Post Anesthesia Evaluation ---
- Post Anesthesia Evaluation Patient Participated: Yes Airway Patent: Yes Stable Respiratory Function: Yes Nausea/Vomiting: No Temp > 96.8F: Yes Pain Manageable: Yes Adequeate Hydration: Yes Anesthesia Complications: No Block Receding Appropriately: Not Applicable Patient on Ventilator: No
--- NOTE | 2017-07-19 16:28 | Fluoroscopy Report ---
Retrograde pyelogram: On the preliminary images as a calculus on the left lateral to the L3 transverse process and on the right at the same level a small calculus is noted. Injection of contrast made on the left side demonstrates on one image incomplete filling of the left ureter below the demonstrated calculus but then fills the remaining ureter into the partially filled intrarenal collecting system. On drainage the film the left calculus is still present at the L3 level adjacent to an internal stent. No additional imaging on the right.
== END 2017-07-18 15:55 | disposition home or self-care (01) ==
LOC: OR 09:54
PROVIDERS: ATTEND Urology
DX: N20.1 Calculus of ureter (principal); K21.9 Gastro-esophageal reflux disease without esophagitis; E03.9 Hypothyroidism, unspecified; Z87.891 Personal history of nicotine dependence; Z79.899 Other long term (current) drug therapy
CPT/HCPCS: 50590; 52332; 74420; A4217; C1726; C1758; C1769; C2617; J0690; J2250; J2704; J7120; Q9967

== ENCOUNTER 2017-08-01 11:52 | Outpatient (CLI) | payer BC ==
[2017-08-01 12:16] LABS: Basophils % (Auto) 0.5 % (0.0-1.8); Eosinophils # (Auto) 0.1 K/mm3 (0.0-0.4); Eosinophils % (Auto) 1.9 % (0.0-4.3); Hematocrit 45.5 % (35.5-45.6); Hemoglobin 15.3 gm/dl (11.8-15.2); Lymphocytes # (Auto) 1.5 K/mm3 (1.2-5.4); Lymphocytes % (Auto) 23.4 % (13.4-35.0); Mean Corpuscular HGB Conc 34 % (32-34); Mean Corpuscular Hemoglobin 32 pg (28-32); Mean Corpuscular Volume 94 fl (84-94); Monocytes # (Auto) 0.5 K/mm3 (0.0-0.8); Monocytes % (Auto) 8.5 % (0.0-7.3); Platelet Count 241 K/mm3 (140-440); Red Blood Count 4.84 M/mm3 (3.65-5.03); Red Cell Distribution Width 13.2 % (13.2-15.2)
[2017-08-01 13:12] LABS: Alanine Aminotransferase 12 units/L (7-56); Albumin 4.6 g/dL (3.9-5); BUN/Creatinine Ratio 17; Blood Urea Nitrogen 15 mg/dL (9-20); Calcium 10.2 mg/dL (8.4-10.2); Chol/HDL Ratio 4.94 %; HDL Cholesterol 39 mg/dL (40-59); Hemolysis Index 26; LDL Cholesterol,Direct 134 mg/dL (50-130)
== END 2017-08-01 11:53 | disposition home or self-care (01) ==
LOC: LAB 11:52
DX: Z00.01 Encounter for general adult medical examination with abnormal findings (principal); R79.89 Other specified abnormal findings of blood chemistry; Z79.899 Other long term (current) drug therapy; Z87.891 Personal history of nicotine dependence
CPT/HCPCS: 36415; 80053; 80061; 84153; 84443; 85025

== ENCOUNTER 2017-11-16 10:16 | Emergency (ER) | payer BC ==
[2017-11-16] MEDS ORDERED: BICILLIN CR IM ONE (10:18)
--- NOTE | 2017-11-16 10:30 | Emergency Department Report ---
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 He states that he has noted facial swelling over the past few days. He's been using mouthwash. He has not yet seen a dentist for this problem. He states he did have some swelling and signs of dental abscess in that area and has not for some time. He denies fever or chills. He is not complaining of vaginal pain. Location: mouth (swelling right angle of the jaw area) Consistency: constant Improves with: none Worsens with: none Associated Symptoms: denies other symptoms - Related Data Home Medications Medication Instructions Recorded Confirmed Last Taken Levothyroxine [Synthroid] 50 mcg PO DAILY 05/29/17 07/18/17 07/17/17 Previous Rx's Medication Instructions Recorded Last Taken Type Meloxicam [Mobic] 15 mg PO DAILY #15 tablet 05/29/17 05/31/17 Rx HYDROcodone/APAP 7.5-325 [[place] 1 each PO Q6HR PRN #14 tablet 07/15/17 07/17/17 Rx 7.5-325 mg TAB] Ondansetron [Zofran Odt] 4 mg PO Q8H PRN #12 tab.rapdis 07/15/17 Unknown Rx Tamsulosin HCl [Flomax] 0.4 mg PO QDAY #5 cap.er.24h 07/15/17 07/16/17 Rx Clindamycin [Clindamycin CAP] 300 mg PO Q6H #40 capsule 11/16/17 Unknown Rx Allergies Allergy/AdvReac Type Severity Reaction Status Date / Time No Known Allergies Allergy Verified 05/31/17 14:26 ED Review of Systems ROS: Stated complaint: TOOTH ABSSES Other details as noted in HPI Comment: All other systems reviewed and negative ED Past Medical Hx - Past Medical History Hx Hypertension: No Hx Congestive Heart Failure: No Hx GERD: Yes Hx Arthritis: No Hx Kidney Stones: Yes Hx HIV: No Additional medical history: hypothyroid - Social History Smoking Status: Former Smoker - Medications Home Medications: Home Medications Medication Instructions Recorded Confirmed Last Taken Type Levothyroxine [Synthroid] 50 mcg PO DAILY 05/29/17 07/18/17 07/17/17 History Meloxicam [Mobic] 15 mg PO DAILY #15 tablet 05/29/17 07/16/17 05/31/17 Rx HYDROcodone/APAP 7.5-325 [[place] 1 each PO Q6HR PRN #14 tablet 07/15/17 07/18/17 07/17/17 Rx 7.5-325 mg TAB] Ondansetron [Zofran Odt] 4 mg PO Q8H PRN #12 tab.rapdis 07/15/17 07/16/17 Unknown Rx Tamsulosin HCl [Flomax] 0.4 mg PO QDAY #5 cap.er.24h 07/15/17 07/18/17 07/16/17 Rx Clindamycin [Clindamycin CAP] 300 mg PO Q6H #40 capsule 11/16/17 Unknown Rx ED Physical Exam - General General appearance: alert, in no apparent distress - Head Head exam: Present: atraumatic, normocephalic - Eye Eye exam: Present: normal appearance - ENT ENT exam: Present: mucous membranes moist, other (patient had some purulent material right molar area gingival but no fluctuant abscess. There was soft tissue swelling. There was submandibular adenopathy.) - Neck Neck exam: Present: normal inspection, other (airway patent, trachea midline. No midline swelling.). Absent: tenderness, meningismus - Respiratory Respiratory exam: Present: normal lung sounds bilaterally. Absent: respiratory distress - Cardiovascular Cardiovascular Exam: Present: regular rate, normal rhythm. Absent: systolic murmur, diastolic murmur, rubs, gallop - GI/Abdominal GI/Abdominal exam: Absent: distended, rebound - Rectal Rectal exam: Present: deferred - Extremities Exam Extremities exam: Present: normal inspection - Back Exam Back exam: Present: normal inspection - Neurological Exam Neurological exam: Present: alert, oriented X3, CN II-XII intact. Absent: motor sensory deficit - Psychiatric Psychiatric exam: Present: normal affect, normal mood - Skin Skin exam: Present: warm, dry, intact, normal color. Absent: rash ED Course - Reevaluation(s) Reevaluation #1: Given IM penicillin. We discussed dental follow-up and return criteria. 11/16/17 10:29 Critical care attestation.: If time is entered above; I have spent that time in minutes in the direct care of this critically ill patient, excluding procedure time. ED Disposition Clinical Impression: Dental abscess Disposition: DC-01 TO HOME OR SELFCARE Is pt being admited?: No Does the pt Need Aspirin: No Condition: Stable Instructions: Dental Abscess (ED) Additional Instructions: His is essential that you see a dentist as soon as you can. Return to the emergency department any worsening signs or infection. Prescriptions: Clindamycin [Clindamycin CAP] 300 mg PO Q6H #40 capsule Time of Disposition: 11:30
[2017-11-16 10:31] VITALS: BP 163/93
== END 2017-11-16 11:13 | disposition home or self-care (01) ==
LOC: ED 10:16
DX: K04.7 Periapical abscess without sinus (principal); K21.9 Gastro-esophageal reflux disease without esophagitis; Z87.891 Personal history of nicotine dependence
CPT/HCPCS: 96372; 99282; J0558

== ENCOUNTER 2018-10-24 22:33 | Emergency (ER) | payer BC ==
[2018-10-24] MEDS ORDERED: MORPHINE IV ONE (22:50)
[2018-10-24] MEDS ORDERED: ZOFRAN IV ONE (22:50)
--- NOTE | 2018-10-24 22:54 | Emergency Department Report ---
ED Abdominal Pain HPI - General Chief Complaint: Abdominal Pain Stated Complaint: RLQ PAIN Time Seen by Provider: 10/24/18 22:44 Source: patient Mode of arrival: Ambulatory Limitations: No Limitations - History of Present Illness Initial Comments: Patient is 58 years old male with history of kidney stone. Patient presented to the ER complaining of right lower quadrant pain sharp in nature with no radiation. Patient stated that pain started 5 days ago, and get better's yesterday but is getting worse today. Patient denied any nausea or vomiting. Patient also denied any urinary symptoms including dysuria, frequency or hematuria. Patient denies fever and chills. MD Complaint: abdominal pain -: days(s) (5) Location: RLQ Radiation: none Migration to: no migration Severity scale (0 -10): 6 Quality: sharp Consistency: intermittent - Related Data Home Medications Medication Instructions Recorded Confirmed Last Taken Levothyroxine [Synthroid] 50 mcg PO DAILY 05/29/17 07/18/17 07/17/17 Previous Rx's Medication Instructions Recorded Last Taken Type Meloxicam [Mobic] 15 mg PO DAILY #15 tablet 05/29/17 05/31/17 Rx HYDROcodone/APAP 7.5-325 [[place] 1 each PO Q6HR PRN #14 tablet 07/15/17 07/17/17 Rx 7.5-325 mg TAB] Ondansetron [Zofran Odt] 4 mg PO Q8H PRN #12 tab.rapdis 07/15/17 Unknown Rx Tamsulosin HCl [Flomax] 0.4 mg PO QDAY #5 cap.er.24h 07/15/17 07/16/17 Rx Clindamycin [Clindamycin CAP] 300 mg PO Q6H #40 capsule 11/16/17 Unknown Rx Allergies Allergy/AdvReac Type Severity Reaction Status Date / Time No Known Allergies Allergy Verified 11/16/17 10:33 ED Review of Systems ROS: Stated complaint: RLQ PAIN Other details as noted in HPI Comment: All other systems reviewed and negative Constitutional: denies: chills, fever Respiratory: denies: cough, shortness of breath Cardiovascular: denies: chest pain, palpitations Gastrointestinal: abdominal pain. denies: nausea, vomiting, diarrhea, constipation, hematemesis, melena, hematochezia Genitourinary: denies: urgency, dysuria, frequency, hematuria, discharge, testicular pain, testicular mass Musculoskeletal: denies: back pain Neurological: denies: headache, weakness, numbness, paresthesias, confusion ED Past Medical Hx - Past Medical History Hx Hypertension: No Hx Congestive Heart Failure: No Hx GERD: Yes Hx Arthritis: No Hx Kidney Stones: Yes Hx HIV: No Additional medical history: hypothyroid - Social History Smoking Status: Former Smoker - Medications Home Medications: Home Medications Medication Instructions Recorded Confirmed Last Taken Type Levothyroxine [Synthroid] 50 mcg PO DAILY 05/29/17 07/18/17 07/17/17 History Meloxicam [Mobic] 15 mg PO DAILY #15 tablet 05/29/17 07/16/17 05/31/17 Rx HYDROcodone/APAP 7.5-325 [[place] 1 each PO Q6HR PRN #14 tablet 07/15/17 07/18/17 07/17/17 Rx 7.5-325 mg TAB] Ondansetron [Zofran Odt] 4 mg PO Q8H PRN #12 tab.rapdis 07/15/17 07/16/17 Unknown Rx Tamsulosin HCl [Flomax] 0.4 mg PO QDAY #5 cap.er.24h 07/15/17 07/18/17 07/16/17 Rx Clindamycin [Clindamycin CAP] 300 mg PO Q6H #40 capsule 11/16/17 Unknown Rx ED Physical Exam - General Limitations: No Limitations General appearance: alert, in no apparent distress - Head Head exam: Present: atraumatic, normocephalic, normal inspection - Eye Eye exam: Present: normal appearance, PERRL - ENT ENT exam: Present: normal exam, normal orophraynx, mucous membranes moist - Neck Neck exam: Present: normal inspection, full ROM. Absent: tenderness, men ingismus, lymphadenopathy, thyromegaly - Respiratory Respiratory exam: Present: normal lung sounds bilaterally - Cardiovascular Cardiovascular Exam: Present: regular rate, normal rhythm, normal heart sounds - GI/Abdominal GI/Abdominal exam: Present: soft, normal bowel sounds. Absent: distended, tenderness, guarding, rebound, rigid, organomegaly, mass, bruit, pulsatile mass, hernia - Extremities Exam Extremities exam: Present: normal inspection, full ROM, normal capillary refill. Absent: tenderness, pedal edema, calf tenderness - Back Exam Back exam: Present: normal inspection, full ROM. Absent: CVA tenderness (R), CVA tenderness (L), muscle spasm, paraspinal tenderness, vertebral tenderness - Neurological Exam Neurological exam: Present: alert, oriented X3, CN II-XII intact, normal gait, reflexes normal - Psychiatric Psychiatric exam: Present: normal mood - Skin Skin exam: Present: warm, intact, normal color ED Medical Decision Making - Lab Data Result diagrams: 10/24/18 22:58 10/24/18 22:56 - Radiology Data Radiology results: report reviewed - Medical Decision Making Patient is 58 years old male with history of kidney stone. Patient presented to the ER complaining of right lower quadrant pain sharp in nature with no radiation. Patient stated that pain started 5 days ago, and get better's yesterday but is getting worse today. Patient denied any nausea or vomiting. Patient also denied any urinary symptoms including dysuria, frequency or hematuria. Patient denies fever and chills. Patient received morphine. Patient stated that his symptom was much better. CT abdomen and pelvis showed 8 millimeter UPJ stone. Patient stated that he'll follow-up with Dr. Del Toro in the next 2-3 days. Critical care attestation.: If time is entered above; I have spent that time in minutes in the direct care of this critically ill patient, excluding procedure time. ED Disposition Clinical Impression: Ureteric colic, Abdominal pain Disposition: DC-01 TO HOME OR SELFCARE Is pt being admited?: No Condition: Stable Instructions: Renal Colic (ED) Referrals: AKOSUA BERGMAN MD [Primary Care Provider] - 3-5 Days SARINA ARNOLD MD [Staff Physician] - 3-5 Days
[2018-10-24 23:07] LABS: Basophils # (Auto) 0.1 K/mm3 (0.0-0.1); Basophils % (Auto) 1.2 % (0.0-1.8); Eosinophils # (Auto) 0.1 K/mm3 (0.0-0.4); Eosinophils % (Auto) 1.3 % (0.0-4.3); Hematocrit 41.6 % (35.5-45.6); Hemoglobin 14.8 gm/dl (11.8-15.2); Lymphocytes # (Auto) 1.3 K/mm3 (1.2-5.4); Lymphocytes % (Auto) 21.9 % (13.4-35.0); Mean Corpuscular HGB Conc 36 % (32-34); Mean Corpuscular Volume 94 fl (84-94); Monocytes # (Auto) 0.7 K/mm3 (0.0-0.8); Monocytes % (Auto) 11.6 % (0.0-7.3); Platelet Count 179 K/mm3 (140-440); Red Blood Count 4.41 M/mm3 (3.65-5.03)
[2018-10-24 23:21] LABS: Alanine Aminotransferase 11 units/L (7-56); Albumin 4.2 g/dL (3.9-5); BUN/Creatinine Ratio 13; Blood Urea Nitrogen 12 mg/dL (9-20); Hemolysis Index 8
[2018-10-24 23:27] LABS: Bilirubin,Direct < 0.2 mg/dL (0-0.2)
--- NOTE | 2018-10-25 02:29 | Cat Scan Report ---
. CT of the abdomen and pelvis with contrast INDICATION: Right-sided pain x2 days COMPARISON: 07/15/2017 FINDINGS: The lung bases are clear. Small liver cyst may be present. The spleen, pancreas, adrenal gl ands and left kidney are unremarkable with a small stone in the left lower pole unchanged. An [address] one previously seen in the right kidney however has migrated to the right UPJ resulting in moderate o bstruction. No perinephric edema. No gross renal masses. No definite gallbladder or biliary tree abno rmality. No fluid or adenopathy in the upper abdomen. CT of the pelvis shows a normal appendix. No distal ureteral stones. No stone fragments seen in the b ladder. Prostate is not enlarged. No diverticulitis or hernia. No bowel obstruction or skeletal abnor mality. IMPRESSION: 8 mm right UPJ stone with moderate obstruction. Automated exposure control was utilized to diminish radiation dose. Signer Name: Abhishek Mayorga MD Signed: 10/25/2018 2:25 AM Workstation Name: [id number]
[2018-10-25] MEDS ORDERED: TORADOL IV ONE (03:01)
[2018-10-25 03:41] VITALS: BP 127/74
== END 2018-10-25 03:25 | disposition home or self-care (01) ==
LOC: ED 22:33
DX: N20.1 Calculus of ureter (principal); K21.9 Gastro-esophageal reflux disease without esophagitis; M19.90 Unspecified osteoarthritis, unspecified site; E03.9 Hypothyroidism, unspecified; Z87.891 Personal history of nicotine dependence; Z79.899 Other long term (current) drug therapy; Z87.442 Personal history of urinary calculi
CPT/HCPCS: 36415; 74177; 80048; 80076; 83690; 85025; 96374; 96375; 99284; J1885; J2270; J2405; Q9967

== ENCOUNTER 2019-06-08 09:00 | Outpatient (CLI) | payer BC ==
[2019-06-08 09:19] LABS: Basophils # (Auto) 0.1 K/mm3 (0.0-0.1); Basophils % (Auto) 1.2 % (0.0-1.8); Eosinophils # (Auto) 0.1 K/mm3 (0.0-0.4); Eosinophils % (Auto) 1.5 % (0.0-4.3); Hematocrit 43.9 % (35.5-45.6); Hemoglobin 14.9 gm/dl (11.8-15.2); Lymphocytes # (Auto) 1.1 K/mm3 (1.2-5.4); Lymphocytes % (Auto) 26.2 % (13.4-35.0); Mean Corpuscular HGB Conc 34 % (32-34); Mean Corpuscular Volume 95 fl (84-94); Monocytes # (Auto) 0.6 K/mm3 (0.0-0.8); Monocytes % (Auto) 13.4 % (0.0-7.3); Platelet Count 187 K/mm3 (140-440); Red Blood Count 4.63 M/mm3 (3.65-5.03); Red Cell Distribution Width 13.3 % (13.2-15.2)
[2019-06-08 09:32] LABS: Alanine Aminotransferase 15 units/L (7-56); Albumin 4.4 g/dL (3.9-5); BUN/Creatinine Ratio 14; Blood Urea Nitrogen 14 mg/dL (9-20); Calcium 9.5 mg/dL (8.4-10.2); Chol/HDL Ratio 4.59 %; HDL Cholesterol 44 mg/dL (40-59); Hemolysis Index 4; LDL Cholesterol,Direct 161 mg/dL (50-130)
== END 2019-06-08 09:01 | disposition home or self-care (01) ==
LOC: LAB 09:00
PROVIDERS: ATTEND Family Medicine
DX: Z00.00 Encounter for general adult medical examination without abnormal findings (principal)
CPT/HCPCS: 36415; 80053; 80061; 84153; 84443; 85025

== ENCOUNTER 2019-09-14 11:02 | Emergency (ER) | payer BC ==
[2019-09-14 11:09] VITALS: BP 161/89
--- NOTE | 2019-09-14 11:21 | Emergency Department Report ---
ED Abdominal Pain HPI - General Chief Complaint: Abdominal Pain Stated Complaint: FLANK PAIN Time Seen by Provider: 09/14/19 11:05 Source: patient Mode of arrival: Ambulatory Limitations: No Limitations - History of Present Illness Initial Comments: This is a pleasant 59-year-old male presents the emergency department chief complaint of right upper quadrant and right flank pain on and off for the past few weeks. He has a history of kidney stones reports this feels very similar. He reports a sudden sharp pain radiating from the flank. Pain is intermittent and a 6 out of 10. He sees urologist Dr. Sweet and has had lithotripsy in the past. Denies fevers vomiting diarrhea. - Related Data Home Medications Medication Instructions Recorded Confirmed Last Taken Levothyroxine [Synthroid] 50 mcg PO DAILY 05/29/17 07/18/17 07/17/17 Previous Rx's Medication Instructions Recorded Last Taken Type Meloxicam [Mobic] 15 mg PO DAILY #15 tablet 05/29/17 05/31/17 Rx HYDROcodone/APAP 7.5-325 [[place] 1 each PO Q6HR PRN #14 tablet 07/15/17 07/17/17 Rx 7.5-325 mg TAB] Ondansetron [Zofran Odt] 4 mg PO Q8H PRN #12 tab.rapdis 07/15/17 Unknown Rx Tamsulosin HCl [Flomax] 0.4 mg PO QDAY #5 cap.er.24h 07/15/17 07/16/17 Rx Clindamycin [Clindamycin CAP] 300 mg PO Q6H #40 capsule 11/16/17 Unknown Rx HYDROcodone/APAP 5-325 [[place] 1 each PO Q6HR PRN #14 tablet 10/25/18 Unknown Rx 5/325] Ondansetron [Zofran Odt] 4 mg PO Q8HR PRN #14 tab.rapdis 10/25/18 Unknown Rx HYDROcodone/APAP 5-325 [[place] 1 each PO Q6HR PRN 12 Days tablet 09/14/19 Unknown Rx 5/325] Tamsulosin [Flomax] 0.4 mg PO QDAY #14 cap 09/14/19 Unknown Rx Allergies Allergy/AdvReac Type Severity Reaction Status Date / Time No Known Allergies Allergy Verified 11/16/17 10:33 ED Review of Systems ROS: Stated complaint: FLANK PAIN Other details as noted in HPI Comment: All other systems reviewed and negative Constitutional: denies: chills, fever Eyes: denies: eye pain, eye discharge, vision change ENT: denies: ear pain, throat pain Respiratory: denies: cough, shortness of breath, wheezing Cardiovascular: denies: chest pain, palpitations Endocrine: no symptoms reported Gastrointestinal: as per HPI, abdominal pain. denies: nausea, diarrhea Genitourinary: as per HPI. denies: urgency, dysuria Musculoskeletal: denies: back pain, joint swelling, arthralgia Skin: denies: rash, lesions Neurological: denies: headache, weakness, paresthesias Psychiatric: denies: anxiety, depression Hematological/Lymphatic: denies: easy bleeding, easy bruising ED Past Medical Hx - Past Medical History Hx Hypertension: No Hx Congestive Heart Failure: No Hx GERD: Yes Hx Arthritis: No Hx Kidney Stones: Yes Hx HIV: No Additional medical history: hypothyroid - Surgical History Past Surgical History?: No - Social History Smoking Status: Never Smoker Substance Use Type: Alcohol - Medications Home Medications: Home Medications Medication Instructions Recorded Confirmed Last Taken Type Levothyroxine [Synthroid] 50 mcg PO DAILY 05/29/17 07/18/17 07/17/17 History Meloxicam [Mobic] 15 mg PO DAILY #15 tablet 05/29/17 07/16/17 05/31/17 Rx HYDROcodone/APAP 7.5-325 [[place] 1 each PO Q6HR PRN #14 tablet 07/15/17 07/18/17 07/17/17 Rx 7.5-325 mg TAB] Ondansetron [Zofran Odt] 4 mg PO Q8H PRN #12 tab.rapdis 07/15/17 07/16/17 Unknown Rx Tamsulosin HCl [Flomax] 0.4 mg PO QDAY #5 cap.er.24h 07/15/17 07/18/17 07/16/17 Rx Clindamycin [Clindamycin CAP] 300 mg PO Q6H #40 capsule 11/16/17 Unknown Rx HYDROcodone/APAP 5-325 [[place] 1 each PO Q6HR PRN #14 tablet 10/25/18 Unknown Rx 5/325] Ondansetron [Zofran Odt] 4 mg PO Q8HR PRN #14 tab.rapdis 10/25/18 Unknown Rx HYDROcodone/APAP 5-325 [[place] 1 each PO Q6HR PRN 12 Days tablet 09/14/19 Unknown Rx 5/325] Tamsulosin [Flomax] 0.4 mg PO QDAY #14 cap 09/14/19 Unknown Rx ED Physical Exam - General Limitations: No Limitations General appearance: alert, in no apparent distress - Head Head exam: Present: atraumatic, normocephalic - Eye Eye exam: Present: normal appearance, PERRL Pupils: Present: normal accommodation - ENT ENT exam: Present: mucous membranes moist - Neck Neck exam: Present: normal inspection - Respiratory Respiratory exam: Present: normal lung sounds bilaterally. Absent: respiratory distress - Cardiovascular Cardiovascular Exam: Present: regular rate, normal rhythm. Absent: systolic murmur, diastolic murmur, rubs, gallop - GI/Abdominal GI/Abdominal exam: Present: soft, normal bowel sounds - Rectal Rectal exam: Present: deferred - Extremities Exam Extremities exam: Present: normal inspection - Back Exam Back exam: Present: normal inspection - Neurological Exam Neurological exam: Present: alert, oriented X3 - Psychiatric Psychiatric exam: Present: normal affect, normal mood - Skin Skin exam: Present: warm, dry, intact, normal color. Absent: rash ED Course Vital Signs 09/14/19 11:05 Temperature 98.5 F Pulse Rate 82 Respiratory 16 Rate Blood Pressure 161/89 O2 Sat by Pulse 98 Oximetry ED Medical Decision Making - Lab Data Result diagrams: 09/14/19 11:45 09/14/19 11:45 Lab Results 09/14/19 09/14/19 09/14/19 Range/Units 11:23 11:45 11:45 WBC 4.7 (4.5-11.0) K/mm3 RBC 4.51 (3.65-5.03) M/mm3 Hgb 15.1 (11.8-15.2) gm/dl Hct 42.3 (35.5-45.6) % MCV 94 (84-94) fl MCH 33 H (28-32) pg MCHC 36 H (32-34) % RDW 12.8 L (13.2-15.2) % Plt Count 181 (140-440) K/mm3 Lymph % (Auto) 24.3 (13.4-35.0) % [place] % (Auto) 9.6 H (0.0-7.3) % Eos % (Auto) 1.4 (0.0-4.3) % Baso % (Auto) 0.8 (0.0-1.8) % Lymph # 1.1 L (1.2-5.4) K/mm3 [place] # 0.4 (0.0-0.8) K/mm3 Eos # 0.1 (0.0-0.4) K/mm3 Baso # 0.0 (0.0-0.1) K/mm3 Seg Neutrophils % 63.9 (40.0-70.0) % Seg Neutrophils # 3.0 (1.8-7.7) K/mm3 Sodium 139 (137-145) mmol/L Potassium 4.5 (3.6-5.0) mmol/L Chloride 100.8 (98-107) mmol/L Carbon Dioxide 26 (22-30) mmol/L Anion Gap 17 mmol/L BUN 14 (9-20) mg/dL Creatinine 0.9 (0.8-1.5) mg/dL Estimated GFR > 60 ml/min BUN/Creatinine Ratio 16 % Glucose 96 (75-100) mg/dL Calcium 9.1 (8.4-10.2) mg/dL Total Bilirubin 0.60 (0.1-1.2) mg/dL AST 19 (5-40) units/L ALT 13 (7-56) units/L Alkaline Phosphatase 63 (35-129) units/L Total Protein 7.0 (6.3-8.2) g/dL Albumin 4.7 (3.9-5) g/dL Albumin/Globulin Ratio 2.0 % Lipase 37 (13-60) units/L Urine Color Yellow (Yellow) Urine Turbidity Hazy (Clear) Urine pH 5.0 (5.0-7.0) Ur Specific [place] 1.019 (1.003-1.030) Urine Protein <15 mg/dl (Negative) mg/dL Urine Glucose (UA) Neg (Negative) mg/dL Urine Ketones Neg (Negative) mg/dL Urine Blood Lg (Negative) Urine Nitrite Neg (Negative) Urine Bilirubin Neg (Negative) Urine Urobilinogen < 2.0 (<2.0) mg/dL Ur Leukocyte Esterase Neg (Negative) Urine WBC (Auto) 9.0 H (0.0-6.0) /HPF Urine RBC (Auto) 98.0 (0.0-6.0) /HPF Urine Mucus Few /HPF - Radiology Data Radiology results: report reviewed CT shows nonobstructing right calculus Unremarkable abdominal ultrasound - Medical Decision Making The CT showed a right renal calculus is not obstructing. There is blood in the urine. No signs of infection. Labs were relatively unremarkable. Patient will be given urology follow-up, hydrocodone for pain and Flomax. Recommended return emerge further changing worsening symptoms. - Differential Diagnosis Nephrolithiasis, pyelonephritis, cholecystitis Critical care attestation.: If time is entered above; I have spent that time in minutes in the direct care of this critically ill patient, excluding procedure time. ED Disposition Clinical Impression: Right nephrolithiasis Disposition: DC-01 TO HOME OR SELFCARE Is pt being admited?: No Condition: Stable Instructions: Kidney Stones (ED) Prescriptions: Tamsulosin [Flomax] 0.4 mg PO QDAY #14 cap HYDROcodone/APAP 5-325 [[place] 5/325] 1 each PO Q6HR PRN 12 Days tablet PRN Reason: Pain Referrals: PRIMARY CARE, [Primary Care Provider] - 3-5 Days SARINA ARNOLD MD [Staff Physician] - 3-5 Days Time of Disposition: 15:47
[2019-09-14 11:54] LABS: Bilirubin,Urine NEG (Negative); Blood,Urine LG (Negative); Color,Urine Yellow (Yellow); Mucus,Urine FEW /HPF; Protein,Urine <15 mg/dL mg/dL (Negative); Urobilinogen,Urine < 2.0 mg/dL (<2.0)
[2019-09-14 12:04] LABS: Basophils % (Auto) 0.8 % (0.0-1.8); Eosinophils # (Auto) 0.1 K/mm3 (0.0-0.4); Eosinophils % (Auto) 1.4 % (0.0-4.3); Hematocrit 42.3 % (35.5-45.6); Hemoglobin 15.1 gm/dl (11.8-15.2); Lymphocytes # (Auto) 1.1 K/mm3 (1.2-5.4); Lymphocytes % (Auto) 24.3 % (13.4-35.0); Mean Corpuscular HGB Conc 36 % (32-34); Mean Corpuscular Volume 94 fl (84-94); Monocytes # (Auto) 0.4 K/mm3 (0.0-0.8); Monocytes % (Auto) 9.6 % (0.0-7.3); Platelet Count 181 K/mm3 (140-440); Red Blood Count 4.51 M/mm3 (3.65-5.03); Red Cell Distribution Width 12.8 % (13.2-15.2)
[2019-09-14 12:26] LABS: Alanine Aminotransferase 13 units/L (7-56); Albumin 4.7 g/dL (3.9-5); BUN/Creatinine Ratio 16; Blood Urea Nitrogen 14 mg/dL (9-20); Calcium 9.1 mg/dL (8.4-10.2); Hemolysis Index 9
--- NOTE | 2019-09-14 14:44 | Ultrasound Report ---
ULTRASOUND ABDOMEN, COMPLETE INDICATION: RUQ and R flank pain COMPARISON: CT 10/25/2018 FINDINGS: Pancreas: Normal. Abdominal Aorta: Normal. IVC: Normal. Liver: Normal. Gallbladder: Normal. Bile ducts: Normal. Common Bile Duct measures 3 mm. Right Kidney: Normal. Left Kidney: Normal. Spleen: Normal. Free fluid: None. Additional Findings: None. IMPRESSION: 1. No sonographic abnormality of the abdomen. Signer Name: Chavo Aguilar MD Signed: 09/14/2019 2:40 PM Workstation Name: [id number]
--- NOTE | 2019-09-14 15:42 | Cat Scan Report ---
CT abdomen pelvis wo con INDICATION / CLINICAL INFORMATION: MAIN. Right flank pain. Hematuria. TECHNIQUE: Routine CT abdomen and pelvis without IV contrast All CT scans at this location are performed using C T dose reduction for ALARA by means of automated exposure control. COMPARISON: 10/25/2018 FINDINGS: Abdomen and pelvis: Several nonobstructive calculi are present within the lower pole and midportion of the right kidney. No obstructive right ureteral calculus is identified. No left hydronephrosis or left ureteral calculu s. Nonobstructive left-sided nephrolithiasis Liver, gallbladder, spleen and pancreas are unremarkable. No free air or free fluid. No bowel obstruc tion. The appendix is unremarkable. Sigmoid diverticulosis without diverticulitis. Urinary bladder is unremarkable. Review of the lower lungs demonstrates no acute findings. Review of bone windows demon strates no significant abnormality. IMPRESSION: Nonobstructive right-sided nephrolithiasis. No obstructive ureteral calculus currently id entified Signer Name: Kerwin Lundy MD Signed: 09/14/2019 3:37 PM Workstation Name: [email or web address]
== END 2019-09-14 15:57 | disposition home or self-care (01) ==
LOC: ED 11:02 → EEVIPCON 11:02 → ED 15:57
DX: N20.0 Calculus of kidney (principal); K21.9 Gastro-esophageal reflux disease without esophagitis; E03.9 Hypothyroidism, unspecified; Z79.899 Other long term (current) drug therapy
CPT/HCPCS: 36415; 74176; 76700; 80053; 81001; 83690; 85025; 87086

== ENCOUNTER 2020-02-02 14:35 | Outpatient (CLI) | payer BC ==
--- NOTE | 2020-02-02 16:35 | Cat Scan Report ---
CT ABDOMEN AND PELVIS WITHOUT CONTRAST INDICATION / CLINICAL INFORMATION: CALCULUS OF KIDNEY. TECHNIQUE: Axial CT images were obtained through the abdomen and pelvis without IV contrast. All CT scans at [facility] location are performed using CT dose reduction for ALARA by means of automated exposure control. COMPARISON: CT abdomen pelvis 09/14/2019 FINDINGS: LOWER CHEST: No significant abnormality. HEPATOBILIARY: No significant abnormality. PANCREAS: No significant abnormality. SPLEEN: No significant abnormality. ADRENALS: No significant abnormality. GENITOURINARY: 9 mm right-sided nonobstructing nephrolith approaching the ureteropelvic junction. No obstructive uropathy. Few additional bilateral nonobstructing nephroliths measuring on the order of 2 -4 mm. Bladder and ureters demonstrate no significant abnormality. GASTROINTESTINAL/MESENTERY: No significant abnormality. RETROPERITONEUM: No significant adenopathy. REPRODUCTIVE ORGANS: No significant abnormality. VASCULAR: Mild atherosclerotic calcification without acute abnormality. SKELETAL SYSTEM: No significant abnormality. ADDITIONAL FINDINGS: Small bilateral fat-containing inguinal hernias. IMPRESSION: 1. 9 mm right-sided nonobstructing nephrolith approaching the ureteropelvic junction. Nephrolith has migrated approximately 1.5 cm distally when compared to the prior examination from 09/14/2019. No obst ructive uropathy. 2. Bilateral nonobstructing nephrolithiasis. Signer Name: Jonathan Whitfield MD Signed: 02/02/2020 4:31 PM Workstation Name: [id number]
== END 2020-02-02 14:36 | disposition home or self-care (01) ==
LOC: CT 14:35
PROVIDERS: ATTEND Urology
DX: N20.0 Calculus of kidney (principal); K40.90 Unilateral inguinal hernia, without obstruction or gangrene, not specified as recurrent; I25.10 Atherosclerotic heart disease of native coronary artery without angina pectoris
CPT/HCPCS: 74176

== ENCOUNTER 2020-03-02 13:40 | Inpatient (IN) | payer BC ==
[2020-03-02] MEDS ORDERED: SODIUM CHLORIDE 0.9% 500 ML 500 ML IV ONE (13:49)
[2020-03-02] MEDS ORDERED: KETOROLAC 30 MG/1 ML INJ IV ONE (14:24)
--- NOTE | 2020-03-02 14:29 | XRay Report ---
CHEST 1 VIEW INDICATION / CLINICAL INFORMATION: Sepsis, fever. COMPARISON: None available. FINDINGS: SUPPORT DEVICES: None. HEART / MEDIASTINUM: No significant abnormality. LUNGS / PLEURA: Faint left lateral mid and lower lung airspace disease. No pneumothorax. ADDITIONAL FINDINGS: No significant additional findings. IMPRESSION: Faint left lateral and lower lung airspace disease is concerning for infection in the appropriate cli nical setting. Signer Name: Holland Mejía MD Signed: 03/02/2020 2:25 PM Workstation Name: [id number]
[2020-03-02 15:09] LABS: Basophils % (Auto) 0.3 % (0.0-1.8); Eosinophils % (Auto) 0.1 % (0.0-4.3); Hematocrit 45.3 % (35.5-45.6); Hemoglobin 15.6 gm/dl (11.8-15.2); Lymphocytes # (Auto) 0.4 K/mm3 (1.2-5.4); Lymphocytes % (Auto) 9.4 % (13.4-35.0); Mean Corpuscular HGB Conc 35 % (32-34); Mean Corpuscular Volume 95 fl (84-94); Monocytes # (Auto) 0.5 K/mm3 (0.0-0.8); Monocytes % (Auto) 11.9 % (0.0-7.3); Platelet Count 111 K/mm3 (140-440); Red Cell Distribution Width 13.5 % (13.2-15.2)
[2020-03-02 15:16] LABS: INR 0.91 (0.87-1.13)
[2020-03-02 15:17] LABS: Partial Thromboplastin Time 30.5 Sec. (24.2-36.6)
[2020-03-02 15:24] LABS: Alanine Aminotransferase 15 units/L (7-56); Albumin 3.5 g/dL (3.9-5); BUN/Creatinine Ratio 18; Blood Urea Nitrogen 18 mg/dL (9-20); Calcium 9.2 mg/dL (8.4-10.2); Hemolysis Index 8
[2020-03-02 15:26] LABS: C-Reactive Protein 3.9 mg/dL (0.00-1.30)
[2020-03-02 15:27] LABS: Bilirubin,Direct < 0.2 mg/dL (0-0.2)
[2020-03-02 15:28] LABS: Creatine Kinase MB < 1.0 ng/mL (0.0-4.0)
--- NOTE | 2020-03-02 16:31 | Emergency Department Report ---
ED General Adult HPI - General Chief complaint: Weakness Stated complaint: COVID POSITIVE Time Seen by Provider: 03/02/20 13:48 Source: patient Mode of arrival: Ambulatory Limitations: No Limitations - History of Present Illness Initial comments: This is a 59-year-old male who works here and recently Covid positive. He has been at home for several days. He has become extremely weak. His states that he is unable to eat more than a minimal amount. He has been coughing. He has some dyspnea on exertion but not at rest. He was found to have a pulse oximetry of 93-94% on room air. He was placed on supplemental oxygen. -: Gradual, days(s) Severity scale (0 -10): 7 - Related Data Home Medications Medication Instructions Recorded Confirmed Last Taken Levothyroxine [Synthroid] 50 mcg PO DAILY 05/29/17 07/18/17 07/17/17 Previous Rx's Medication Instructions Recorded Last Taken Type Meloxicam [Mobic] 15 mg PO DAILY #15 tablet 05/29/17 05/31/17 Rx HYDROcodone/APAP 7.5-325 [[place] 1 each PO Q6HR PRN #14 tablet 07/15/17 07/17/17 Rx 7.5-325 mg TAB] Ondansetron [Zofran Odt] 4 mg PO Q8H PRN #12 tab.rapdis 07/15/17 Unknown Rx Tamsulosin HCl [Flomax] 0.4 mg PO QDAY #5 cap.er.24h 07/15/17 07/16/17 Rx Clindamycin [Clindamycin CAP] 300 mg PO Q6H #40 capsule 11/16/17 Unknown Rx HYDROcodone/APAP 5-325 [[place] 1 each PO Q6HR PRN #14 tablet 10/25/18 Unknown Rx 5/325] Ondansetron [Zofran Odt] 4 mg PO Q8HR PRN #14 tab.rapdis 10/25/18 Unknown Rx HYDROcodone/APAP 5-325 [[place] 1 each PO Q6HR PRN #12 tablet 09/14/19 Unknown Rx 5/325] Tamsulosin [Flomax] 0.4 mg PO QDAY #14 cap 09/14/19 Unknown Rx Allergies Allergy/AdvReac Type Severity Reaction Status Date / Time No Known Allergies Allergy Verified 11/16/17 10:33 ED Review of Systems ROS: Stated complaint: COVID POSITIVE Other details as noted in HPI Constitutional: denies: chills, fever Eyes: denies: eye pain, eye discharge, vision change ENT: denies: ear pain, throat pain Respiratory: cough, shortness of breath, SOB with exertion Cardiovascular: denies: chest pain, palpitations Endocrine: no symptoms reported Gastrointestinal: denies: abdominal pain, nausea, diarrhea Genitourinary: denies: urgency, dysuria Musculoskeletal: denies: back pain (Chronic back pain with kidney stone. No acute back pain), joint swelling, arthralgia Skin: denies: rash, lesions Neurological: denies: headache, weakness, paresthesias Psychiatric: denies: anxiety, depression Hematological/Lymphatic: denies: easy bleeding, easy bruising ED Past Medical Hx - Past Medical History Previous Medical History?: Yes Hx Hypertension: No Hx Congestive Heart Failure: No Hx GERD: Yes Hx Arthritis: No Hx Kidney Stones: Yes Hx HIV: No Additional medical history: hypothyroid - Social History Smoking Status: Never Smoker Substance Use Type: None - Medications Home Medications: Home Medications Medication Instructions Recorded Confirmed Last Taken Type Levothyroxine [Synthroid] 50 mcg PO DAILY 05/29/17 07/18/17 07/17/17 History Meloxicam [Mobic] 15 mg PO DAILY #15 tablet 05/29/17 07/16/17 05/31/17 Rx HYDROcodone/APAP 7.5-325 [[place] 1 each PO Q6HR PRN #14 tablet 07/15/17 07/18/17 07/17/17 Rx 7.5-325 mg TAB] Ondansetron [Zofran Odt] 4 mg PO Q8H PRN #12 tab.rapdis 07/15/17 07/16/17 Unkno wn Rx Tamsulosin HCl [Flomax] 0.4 mg PO QDAY #5 cap.er.24h 07/15/17 07/18/17 07/16/17 Rx Clindamycin [Clindamycin CAP] 300 mg PO Q6H #40 capsule 11/16/17 Unknown Rx HYDROcodone/APAP 5-325 [[place] 1 each PO Q6HR PRN #14 tablet 10/25/18 Unknown Rx 5/325] Ondansetron [Zofran Odt] 4 mg PO Q8HR PRN #14 tab.rapdis 10/25/18 Unknown Rx HYDROcodone/APAP 5-325 [[place] 1 each PO Q6HR PRN #12 tablet 09/14/19 Unknown Rx 5/325] Tamsulosin [Flomax] 0.4 mg PO QDAY #14 cap 09/14/19 Unknown Rx ED Physical Exam - General Limitations: No Limitations General appearance: alert, in no apparent distress, other (Appears dehydrated) - Head Head exam: Present: atraumatic, normocephalic - Eye Eye exam: Present: normal appearance. Absent: scleral icterus - ENT ENT exam: Present: mucous membranes dry - Neck Neck exam: Present: normal inspection. Absent: tenderness, meningismus - Respiratory Respiratory exam: Present: normal lung sounds bilaterally. Absent: respiratory distress - Cardiovascular Cardiovascular Exam: Present: regular rate, normal rhythm. Absent: systolic murmur, diastolic murmur, rubs, gallop - GI/Abdominal GI/Abdominal exam: Present: soft, normal bowel sounds. Absent: distended, tenderness, guarding, rebound, rigid - Rectal Rectal exam: Present: deferred - Extremities Exam Extremities exam: Present: normal inspection - Back Exam Back exam: Present: normal inspection - Neurological Exam Neurological exam: Present: alert, oriented X3, CN II-XII intact. Absent: motor sensory deficit - Psychiatric Psychiatric exam: Present: normal affect, normal mood - Skin Skin exam: Present: warm, dry, intact, normal color. Absent: rash ED Course Vital Signs 03/02/20 03/02/20 03/02/20 14:04 14:13 14:15 Temperature 99.5 F Pulse Rate 98 H Respiratory 18 Rate Blood Pressure 139/83 O2 Sat by Pulse 98 98 Oximetry 03/02/20 03/02/20 03/02/20 14:30 14:35 14:45 Temperature Pulse Rate 94 H 87 Respiratory 18 18 16 Rate Blood Pressure 127/81 127/81 O2 Sat by Pulse 100 Oximetry 03/02/20 03/02/20 03/02/20 14:48 15:00 15:30 Temperature Pulse Rate 87 88 Respiratory 17 Rate Blood Pressure 124/73 121/82 O2 Sat by Pulse 100 97 Oximetry 03/02/20 03/02/20 16:00 16:30 Temperature Pulse Rate 92 H 81 Respiratory 20 24 Rate Blood Pressure 128/83 114/75 O2 Sat by Pulse 98 97 Oximetry - Reevaluation(s) Reevaluation #1: IV fluids, supplemental oxygen, referred to the hospital service and admitted. 03/02/20 19:16 ED Medical Decision Making - Lab Data Result diagrams: 03/02/20 14:39 03/02/20 14:39 Laboratory Results - last 24 hr 03/02/20 03/02/20 03/02/20 14:39 14:39 14:39 WBC RBC Hgb Hct MCV MCH MCHC RDW Plt Count Lymph % (Auto) [place] % (Auto) Eos % (Auto) Baso % (Auto) Lymph # (Auto) [place] # (Auto) Eos # (Auto) Baso # (Auto) Seg Neutrophils % Seg Neutrophils # PT 12.1 L INR 0.91 APTT 30.5 D-Dimer 427.91 H VBG pH Sodium Potassium Chloride Carbon Dioxide Anion Gap BUN Creatinine Estimated GFR BUN/Creatinine Ratio Glucose 108 H Lactic Acid Calcium Ferritin 1320.0 H Total Bilirubin Direct Bilirubin Indirect Bilirubin AST ALT Alkaline Phosphatase Lactate Dehydrogenase 349 H Total Creatine Kinase CK-MB (CK-2) CK-MB (CK-2) Rel Index Troponin T C-Reactive Protein 3.90 H NT-Pro-B Natriuret Pep Total Protein Albumin Albumin/Globulin Ratio 03/02/20 03/02/20 03/02/20 14:39 14:39 14:39 WBC 3.9 L RBC 4.80 Hgb 15.6 H Hct 45.3 MCV 95 H MCH 33 H MCHC 35 H RDW 13.5 Plt Count 111 L Lymph % (Auto) 9.4 L [place] % (Auto) 11.9 H Eos % (Auto) 0.1 Baso % (Auto) 0.3 Lymph # (Auto) 0.4 L [place] # (Auto) 0.5 Eos # (Auto) 0.0 Baso # (Auto) 0.0 Seg Neutrophils % 78.3 H Seg Neutrophils # 3.0 PT INR APTT D-Dimer VBG pH Sodium 134 L Potassium 4.0 Chloride 97.8 L Carbon Dioxide 28 Anion Gap 12 BUN 18 Creatinine 1.0 Estimated GFR > 60 BUN/Creatinine Ratio 18 Glucose 108 H Lactic Acid 1.40 Calcium 9.2 Ferritin Total Bilirubin 0.50 Direct Bilirubin < 0.2 Indirect Bilirubin 0.3 AST 29 ALT 15 Alkaline Phosphatase 56 Lactate Dehydrogenase Total Creatine Kinase 97 CK-MB (CK-2) < 1.0 CK-MB (CK-2) Rel Index 1.0 Troponin T < 0.010 C-Reactive Protein NT-Pro-B Natriuret Pep 34.21 Total Protein 7.3 Albumin 3.5 L Albumin/Globulin Ratio 0.9 03/02/20 14:39 WBC RBC Hgb Hct MCV MCH MCHC RDW Plt Count Lymph % (Auto) [place] % (Auto) Eos % (Auto) Baso % (Auto) Lymph # (Auto) [place] # (Auto) Eos # (Auto) Baso # (Auto) Seg Neutrophils % Seg Neutrophils # PT INR APTT D-Dimer VBG pH 7.342 Sodium Potassium Chloride Carbon Dioxide Anion Gap BUN Creatinine Estimated GFR BUN/Creatinine Ratio Glucose Lactic Acid Calcium Ferritin Total Bilirubin Direct Bilirubin Indirect Bilirubin AST ALT Alkaline Phosphatase Lactate Dehydrogenase Total Creatine Kinase CK-MB (CK-2) CK-MB (CK-2) Rel Index Troponin T C-Reactive Protein NT-Pro-B Natriuret Pep Total Protein Albumin Albumin/Globulin Ratio - EKG Data -: EKG Interpreted by Mi EKG shows normal: sinus rhythm, axis, intervals, QRS complexes, ST-T waves Rate: normal - EKG Data Interpretation: no acute changes - Radiology Data Radiology results: report reviewed, image reviewed LUNGS / PLEURA: Faint left lateral mid and lower lung airspace disease. No pneumothorax. ADDITIONAL FINDINGS: No significant additional findings. IMPRESSION: Faint left lateral and lower lung airspace disease is concerning for infection in the appropriate clinical setting. Critical care attestation.: If time is entered above; I have spent that time in minutes in the direct care of this critically ill patient, excluding procedure time. ED Disposition Clinical Impression: Hypoxia, COVID-19 virus infection Pneumonia Qualifiers: Pneumonia type: due to unspecified organism Laterality: bilateral Lung location: unspecified part of lung Qualified Code(s): J18.9 - Pneumonia, unspecified organism Disposition: OP ADMIT IP TO THIS HOSP Is pt being admited?: Yes Does the pt Need Aspirin: No Condition: Stable Time of Disposition: 19:18
--- NOTE | 2020-03-02 16:34 | History and Physical Report ---
History of Present Illness Chief complaint: I feel weak, and Im just tired History of present illness: 59 YO Male with GERD, Hypothyroidism, OA, Coronavirus Infection currently on home isolation presents to ED for evaluation. Patient states that he has experienced generalized weakness, fatigue, decreased exercise tolerance, loss of sense of taste, loss of sense of smell, dry cough, and shortness of breath over the past week with persistently worsening symptoms over the past 3 days. Patient transported to [facility] via private vehicle for further care and evaluation of the aforementioned symptoms. Patient seen and evaluated in the emergency department. All lab and imaging studies reviewed. Patient found to have pulse oximetry of 88% on room air with exertion which is a consistent with acute hypoxemic respiratory failure. Patient underwent chest x-ray which showed bilateral pneumonia. Patient admitted to medical floor and initiated on pneumonia protocol as well as COVID-19 protocol. Patient denies chills, chest pain, palpitation, skin rash, or recent ill contacts. No prior admission for review. All medication listed at time of admission has been reconciled. Advanced care planning conducted in ED. Past History Past Medical History: arthritis, GERD, hypothyroidism Past Surgical History: No surgical history, Other (Reviewed) Social history: , lives with family Family history: hypertension Medications and Allergies Allergies Allergy/AdvReac Type Severity Reaction Status Date / Time No Known Allergies Allergy Verified 11/16/17 10:33 Home Medications Medication Instructions Recorded Confirmed Last Taken Type Levothyroxine [Synthroid] 50 mcg PO DAILY 05/29/17 07/18/17 07/17/17 History Meloxicam [Mobic] 15 mg PO DAILY #15 tablet 05/29/17 07/16/17 05/31/17 Rx HYDROcodone/APAP 7.5-325 [[place] 1 each PO Q6HR PRN #14 tablet 07/15/17 07/18/17 07/17/17 Rx 7.5-325 mg TAB] Ondansetron [Zofran Odt] 4 mg PO Q8H PRN #12 tab.rapdis 07/15/17 07/16/17 Unknown Rx Tamsulosin HCl [Flomax] 0.4 mg PO QDAY #5 cap.er.24h 07/15/17 07/18/17 07/16/17 Rx Clindamycin [Clindamycin CAP] 300 mg PO Q6H #40 capsule 11/16/17 Unknown Rx HYDROcodone/APAP 5-325 [[place] 1 each PO Q6HR PRN #14 tablet 10/25/18 Unknown Rx 5/325] Ondansetron [Zofran Odt] 4 mg PO Q8HR PRN #14 tab.rapdis 10/25/18 Unknown Rx HYDROcodone/APAP 5-325 [[place] 1 each PO Q6HR PRN #12 tablet 09/14/19 Unknown Rx 5/325] Tamsulosin [Flomax] 0.4 mg PO QDAY #14 cap 09/14/19 Unknown Rx Review of Systems Constitutional: fever, fatigue, weakness, malaise Ears, nose, mouth and throat: other (Loss of sense of smell, loss of sense of ta jose juan), no ear pain, no ear discharge, no decreased hearing, no nose pain, no nasal congestion, no nasal discharge Cardiovascular: no chest pain, no orthopnea, no palpitations, no rapid/irregular heart beat, no edema, no syncope Respiratory: cough, no cough with sputum, no excessive sputum, no hemoptysis Gastrointestinal: no abdominal pain, no nausea, no vomiting, no diarrhea, no constipation Genitourinary Male: no hematuria, no flank pain, no discharge, no urinary frequency, no urinary hesitancy Rectal: no pain, no incontinence, no bleeding Musculoskeletal: no neck stiffness, no neck pain, no shooting arm pain, no arm numbness/tingling, no shooting leg pain Integumentary: no rash, no pruritis, no sores Neurological: no head injury, no transient paralysis, no weakness, no parathesias, no tingling, no syncope Psychiatric: no anxiety, no change in sleep habits, no sleep disturbances, no hypersomnia, no change in appetite, no change in libido Endocrine: no cold intolerance, no heat intolerance, no excessive thirst, no polydipsia, no polyuria, no nocturia Hematologic/Lymphatic: no easy bruising, no easy bleeding Allergic/Immunologic: no urticaria, no allergic rhinitis Exam - Constitutional Vitals: Temp Pulse Resp BP Pulse Ox 99.5 F 87 16 127/81 100 03/02/20 14:13 03/02/20 14:48 03/02/20 14:45 03/02/20 14:45 03/02/20 14:45 General appearance: Present: mild distress - EENT Eyes: Present: PERRL ENT: hearing intact, clear oral mucosa - Neck Neck: Present: supple, normal ROM - Respiratory Respiratory effort: labored, accessory muscle use, stridor Respiratory: bilateral: diminished, rhonchi - Cardiovascular Heart Sounds: Present: S1 & S2. Absent: rub, click - Extremities Extremities: pulses symmetrical, No edema Peripheral Pulses: within normal limits - Abdominal General gastrointestinal: Present: soft, non-tender, non-distended, normal bowel sounds Male genitourinary: Present: normal - Integumentary Integumentary: Present: clear, warm, dry - Musculoskeletal Musculoskeletal: gait normal, strength equal bilaterally - Psychiatric Psychiatric: appropriate mood/affect, intact judgment & insight - Neurologic Neurologic: CNII-XII intact, moves all extremities HEART Score - HEART Score Troponin: Troponin T < 0.010 ng/mL (0.00-0.029) 03/02/20 14:39 Results - Labs CBC & Chem 7: 03/02/20 14:39 03/02/20 14:39 Labs: Abnormal lab results 03/02/20 03/02/20 03/02/20 Range/Units 14:39 14:39 14:39 WBC (4.5-11.0) K/mm3 Hgb (11.8-15.2) gm/dl MCV (84-94) fl MCH (28-32) pg MCHC (32-34) % Plt Count (140-440) K/mm3 Lymph % (Auto) (13.4-35.0) % [place] % (Auto) (0.0-7.3) % Lymph # (Auto) (1.2-5.4) K/mm3 Seg Neutrophils % (40.0-70.0) % PT 12.1 L (12.2-14.9) Sec. D-Dimer 427.91 H (0-234) ng/mlDDU Sodium (137-145) mmol/L Chloride (98-107) mmol/L Glucose 108 H (75-100) mg/dL Ferritin 1320.0 H (30.0-300.0) ng/mL Lactate Dehydrogenase 349 H (91-180) units/L C-Reactive Protein 3.90 H (0.00-1.30) mg/dL Albumin (3.9-5) g/dL 03/02/20 03/02/20 Range/Units 14:39 14:39 WBC 3.9 L (4.5-11.0) K/mm3 Hgb 15.6 H (11.8-15.2) gm/dl MCV 95 H (84-94) fl MCH 33 H (28-32) pg MCHC 35 H (32-34) % Plt Count 111 L (140-440) K/mm3 Lymph % (Auto) 9.4 L (13.4-35.0) % [place] % (Auto) 11.9 H (0.0-7.3) % Lymph # (Auto) 0.4 L (1.2-5.4) K/mm3 Seg Neutrophils % 78.3 H (40.0-70.0) % PT (12.2-14.9) Sec. D-Dimer (0-234) ng/mlDDU Sodium 134 L (137-145) mmol/L Chloride 97.8 L (98-107) mmol/L Glucose 108 H (75-100) mg/dL Ferritin (30.0-300.0) ng/mL Lactate Dehydrogenase (91-180) units/L C-Reactive Protein (0.00-1.30) mg/dL Albumin 3.5 L (3.9-5) g/dL Assessment and Plan - Patient Problems (1) Acute hypoxemic respiratory failure Current Visit: Yes Status: Acute Plan to address problem: Chest X ray, supplemental oxygen, pulse oximetry, nebulizer therapy, prone positioning while in bed, noninvasive positive pressure ventilation as clinically indicated, if patient is unable to maintain oxygen saturation via submental oxygen via nasal cannula will then initiate high flow submental oxygen. (2) COVID-19 virus infection Current Visit: Yes Status: Acute Plan to address problem: Coronavirus protocol: IV steroid therapy, IV antibiotic therapy, supplemental oxygen, pulse oximetry, nebulizer therapy, prone positioning while in bed, pulmonary toilet, contact precautions, isolation precautions. (3) Hypothyroidism Current Visit: Yes Status: Acute Qualifiers: Hypothyroidism type: acquired Qualified Code(s): E03.9 - Hypothyroidism, unspecified Plan to address problem: Continue Synthroid, supportive care. (4) GERD (gastroesophageal reflux disease) Current Visit: Yes Status: Acute Qualifiers: Esophagitis presence: without esophagitis Qualified Code(s): K21.9 - Gastro-esophageal reflux disease without esophagitis Plan to address problem: PPI therapy (5) Pneumonia Current Visit: Yes Status: Acute Qualifiers: Pneumonia type: due to unspecified organism Laterality: bilateral Lung location: unspecified part of lung Qualified Code(s): J18.9 - Pneumonia, unspecified organism Plan to address problem: Pneumonia protocol: Chest x-ray, CBC, CMP, supplemental oxygen, nebulizer therapy, pulse oximetry, blood cultures, IV antibiotic therapy. (6) DVT prophylaxis Current Visit: Yes Status: Acute Plan to address problem: SCD to bilateral lower extremities while in bed, prophylactic anticoagulation. (7) Advance care planning Current Visit: Yes Status: Acute Plan to address problem: Disease education conducted, patient is full code, prognosis discussed, care plan discussed, patient knowledges understanding and agreement with care plan, +30 minutes.
[2020-03-02] MEDS ORDERED: ALBUTEROL 2.5 MG/3 ML NEBU IH PRN (16:35)
[2020-03-02] MEDS ORDERED: ACETAMINOPHEN 325 MG TAB PO PRN (17:00)
[2020-03-02 17:07] LABS: Bilirubin,Urine NEG (Negative); Blood,Urine SM (Negative); Color,Urine Yellow (Yellow); Mucus,Urine FEW /HPF; Urobilinogen,Urine < 2.0 mg/dL (<2.0)
[2020-03-02] MEDS ORDERED: HYDROcodone/ACETAMINOPHEN 5-325 MG TAB PO PRN (18:00)
[2020-03-02] MEDS ORDERED: ONDANSETRON 4 MG ODT TAB PO PRN (18:00)
[2020-03-02] MEDS ORDERED: ONDANSETRON 4 MG/2 ML INJ IV PRN (18:00)
[2020-03-02] MEDS: AZITHROMYCIN 500 MG in SODIUM CHLORIDE 0.9% 250ML 250 ML IV SCH (18:18)
[2020-03-02] MEDS: cefTRIAXone/NS 2 GM/100 ML 2 GM/100 ML BAG IV SCH (20:58)
[2020-03-02] MEDS: methylPREDNISolone Sod Succinate 40 MG/1 ML INJ IV SCH (22:59)
[2020-03-02] MEDS: HEPARIN 5,000 UNIT/1 ML VIAL SUB-Q SCH (23:00)
[2020-03-03] MEDS: methylPREDNISolone Sod Succinate 40 MG/1 ML INJ IV SCH ×3 (06:02→21:51)
[2020-03-03 06:27] LABS: Basophils % (Auto) 0.2 % (0.0-1.8); Hematocrit 43.4 % (35.5-45.6); Lymphocytes # (Auto) 0.4 K/mm3 (1.2-5.4); Lymphocytes % (Auto) 9.9 % (13.4-35.0); Mean Corpuscular HGB Conc 35 % (32-34); Mean Corpuscular Volume 94 fl (84-94); Monocytes # (Auto) 0.3 K/mm3 (0.0-0.8); Platelet Count 127 K/mm3 (140-440); Red Cell Distribution Width 13.4 % (13.2-15.2)
[2020-03-03 07:01] LABS: BUN/Creatinine Ratio 17; Blood Urea Nitrogen 17 mg/dL (9-20); Calcium 9.2 mg/dL (8.4-10.2); Hemolysis Index 0
[2020-03-03] MEDS: LEVOTHYROXINE 50 MCG TAB PO SCH (07:02)
--- NOTE | 2020-03-03 10:29 | Consultation ---
History of Present Illness - Reason for Consult Consult date: 03/03/20 COVID Requesting physician: PADMAJA FRIEND - History of Present Illness 59 years old male with history of GERD, hypothyroidism, osteoarthritis, diagnosed with COVID-19 infection as an outpatient, admitted on 03/02/2020 due to worsening generalized malaise, fatigue, loss of sense of taste and smell, dry cough shortness of breath for the last 3 days. On arrival, temperature 99.5, up to 102.6, HR 98, RR 18, O2 sat 98%, BP 139/83. Initial WBC 3.9. Platelets 111. D-dimer 427. Ferritin 1320. CRP 3.9. Creatinine 1. Urinalysis negative. Blood cultures no growth today. Chest x-ray with left-sided airspace disease. O2 sat in exertion down to 88%. Past History Past Medical History: arthritis, GERD, hypothyroidism Past Surgical History: No surgical history, Other (Reviewed) Social history: , lives with family Family history: hypertension Medications and Allergies Allergies Allergy/AdvReac Type Severity Reaction Status Date / Time No Known Allergies Allergy Verified 11/16/17 10:33 Home Medications Medication Instructions Recorded Confirmed Last Taken Type Levothyroxine [Synthroid] 50 mcg PO DAILY 05/29/17 07/18/17 07/17/17 History Meloxicam [Mobic] 15 mg PO DAILY #15 tablet 05/29/17 07/16/17 05/31/17 Rx HYDROcodone/APAP 7.5-325 [[place] 1 each PO Q6HR PRN #14 tablet 07/15/17 07/18/17 07/17/17 Rx 7.5-325 mg TAB] Ondansetron [Zofran Odt] 4 mg PO Q8H PRN #12 tab.rapdis 07/15/17 07/16/17 Unknown Rx Tamsulosin HCl [Flomax] 0.4 mg PO QDAY #5 cap.er.24h 07/15/17 07/18/17 07/16/17 Rx Clindamycin [Clindamycin CAP] 300 mg PO Q6H #40 capsule 11/16/17 Unknown Rx HYDROcodone/APAP 5-325 [[place] 1 each PO Q6HR PRN #14 tablet 10/25/18 Unknown Rx 5/325] Ondansetron [Zofran Odt] 4 mg PO Q8HR PRN #14 tab.rapdis 10/25/18 Unknown Rx HYDROcodone/APAP 5-325 [[place] 1 each PO Q6HR PRN #12 tablet 09/14/19 Unknown Rx 5/325] Tamsulosin [Flomax] 0.4 mg PO QDAY #14 cap 09/14/19 Unknown Rx Active Meds: Active Medications Acetaminophen (Tylenol) 650 mg PO Q4H PRN PRN Reason: Pain MILD(1-3)/Fever >100.5/GRIJALVA Last Admin: 03/02/20 22:59 Dose: 650 mg Documented by: Hydrocodone Bitart/Acetaminophen ([place] 5/325) 1 each PO Q6HR PRN PRN Reason: PAIN Albuterol (Proventil) 2.5 mg IH Q4HRT PRN PRN Reason: Shortness Of Breath Heparin Sodium (Porcine) (Heparin) 5,000 unit SUB-Q Q12HR BAILEY Last Admin: 03/02/20 23:00 Dose: 5,000 unit Documented by: Ceftriaxone Sodium (Rocephin/Ns 2 Gm/100 Ml) 2 gm in 100 mls @ 200 mls/hr IV Q24HR BAILEY; Protocol Stop: 03/05/20 17:59 Last Admin: 03/02/20 20:58 Dose: 200 mls/hr Documented by: Azithromycin 500 mg/ Sodium (Chloride) 250 mls @ 250 mls/hr IV Q24HR BAILEY; Protocol Stop: 03/05/20 16:59 Last Admin: 03/02/20 18:18 Dose: 250 mls/hr Documented by: Levothyroxine Sodium (Synthroid) 50 mcg PO DAILY@0600 [facility] Last Admin: 03/03/20 07:02 Dose: 50 mcg Documented by: Methylprednisolone Sodium Succinate (Solu-Medrol) 40 mg IV Q8HR BAILEY Last Admin: 03/03/20 06:02 Dose: 40 mg Documented by: Ondansetron HCl (Zofran) 4 mg IV Q8H PRN PRN Reason: Nausea And Vomiting Ondansetron HCl (Zofran Odt) 4 mg PO Q8H PRN PRN Reason: Nausea Sodium Chloride (Sodium Chloride Flush Syringe 10 Ml) 10 ml IV BID [facility] Last Admin: 03/02/20 23:03 Dose: 10 ml Documented by: Sodium Chloride (Sodium Chloride Flush Syringe 10 Ml) 10 ml IV PRN PRN PRN Reason: LINE FLUSH Tamsulosin HCl (Flomax) 0.4 mg PO QDAY BAILEY Physical Examination - Physical Exam Narrative exam: Review of Systems: reviewed ED and H&P notes. Deferred to prevent COVID-19 transmission. - Constitutional Vitals: Vital Signs Temp Pulse Resp BP Pulse Ox 97.9 F 71 20 116/76 97 03/03/20 05:47 03/03/20 05:47 03/03/20 05:47 03/03/20 05:47 03/03/20 05:47 Temperature -Last 24 Hours Temperature 97.9 F Temperature 102.6 F Temperature 98.9 F Temperature 99.5 F Results - Labs CBC & Chem 7: 03/03/20 04:00 03/03/20 05:16 Labs: Abnormal lab results 03/02/20 03/02/20 03/02/20 Range/Units 14:39 14:39 14:39 WBC (4.5-11.0) K/mm3 Hgb (11.8-15.2) gm/dl MCV (84-94) fl MCH (28-32) pg MCHC (32-34) % Plt Count (140-440) K/mm3 Lymph % (Auto) (13.4-35.0) % [place] % (Auto) (0.0-7.3) % Lymph # (Auto) (1.2-5.4) K/mm3 Seg Neutrophils % (40.0-70.0) % PT 12.1 L (12.2-14.9) Sec. D-Dimer 427.91 H (0-234) ng/mlDDU Sodium (137-145) mmol/L Chloride (98-107) mmol/L Carbon Dioxide (22-30) mmol/L Glucose 108 H (75-100) mg/dL Ferritin 1320.0 H (30.0-300.0) ng/mL Lactate Dehydrogenase 349 H (91-180) units/L C-Reactive Protein 3.90 H (0.00-1.30) mg/dL Albumin (3.9-5) g/dL 03/02/20 03/02/20 03/03/20 Range/Units 14:39 14:39 04:00 WBC 3.9 L 3.7 L (4.5-11.0) K/mm3 Hgb 15.6 H (11.8-15.2) gm/dl MCV 95 H (84-94) fl MCH 33 H 33 H (28-32) pg MCHC 35 H 35 H (32-34) % Plt Count 111 L 127 L (140-440) K/mm3 Lymph % (Auto) 9.4 L 9.9 L (13.4-35.0) % [place] % (Auto) 11.9 H (0.0-7.3) % Lymph # (Auto) 0.4 L 0.4 L (1.2-5.4) K/mm3 Seg Neutrophils % 78.3 H 82.9 H (40.0-70.0) % PT (12.2-14.9) Sec. D-Dimer (0-234) ng/mlDDU Sodium 134 L (137-145) mmol/L Chloride 97.8 L (98-107) mmol/L Carbon Dioxide (22-30) mmol/L Glucose 108 H (75-100) mg/dL Ferritin (30.0-300.0) ng/mL Lactate Dehydrogenase (91-180) units/L C-Reactive Protein (0.00-1.30) mg/dL Albumin 3.5 L (3.9-5) g/dL 03/03/20 Range/Units 05:16 WBC (4.5-11.0) K/mm3 Hgb (11.8-15.2) gm/dl MCV (84-94) fl MCH (28-32) pg MCHC (32-34) % Plt Count (140-440) K/mm3 Lymph % (Auto) (13.4-35.0) % [place] % (Auto) (0.0-7.3) % Lymph # (Auto) (1.2-5.4) K/mm3 Seg Neutrophils % (40.0-70.0) % PT (12.2-14.9) Sec. D-Dimer (0-234) ng/mlDDU Sodium (137-145) mmol/L Chloride (98-107) mmol/L Carbon Dioxide 32 H (22-30) mmol/L Glucose 162 H (75-100) mg/dL Ferritin (30.0-300.0) ng/mL Lactate Dehydrogenase (91-180) units/L C-Reactive Protein (0.00-1.30) mg/dL Albumin (3.9-5) g/dL Assessment and Plan Cultures: Blood culture pending SARS CoV2 PCR positive Assessment: 59 years old male with history of GERD, hypothyroidism, osteoarthritis, diagnosed with COVID-19 infection as an outpatient, admitted on 03/02/2020 due to worsening generalized malaise, fatigue, loss of sense of taste and smell, dry cough shortness of breath for the last 3 days: #Severe sepsis: Present with fever and hypoxia upon ambulation. Likely due to COVID-19 pneumonia. #Severe COVID pneumonia: Chest x-ray with left-sided infiltrates. Inflammatory markers elevated with ferritin 1320, D-dimer 427. #Acute hypoxemic respiratory failure: O2 sat dropped to 88% on ambulation. Currently on room air. Recommendations: Continue steroids Start Remdesivir if hypoxia persists Monitor inflammatory markers - ferritin, Ddimer, CRP, LDH Stop ceftriaxone and azithromycin, procalcitonin <0.25 ng/mL Continue anticoagulation per System Protocol Prone positioning as possible All laboratory, cultures and imaging were reviewed. Discussed with attending. Will follow Krystal Veras MD Infectious Diseases [employer] [facility] ([facility]) M [phone] O [phone]
[2020-03-03] MEDS: HEPARIN 5,000 UNIT/1 ML VIAL SUB-Q SCH ×2 (10:49→21:51)
[2020-03-03] MEDS: cefTRIAXone/NS 2 GM/100 ML 2 GM/100 ML BAG IV SCH (10:49)
[2020-03-03] MEDS: TAMSULOSIN 0.4 MG CAP PO SCH (10:49)
[2020-03-03] MEDS: AZITHROMYCIN 500 MG in SODIUM CHLORIDE 0.9% 250ML 250 ML IV SCH (11:40)
--- NOTE | 2020-03-03 13:50 | Progress Note ---
Assessment and Plan Assessment and plan: 59 YO Male with GERD, Hypothyroidism, OA, Coronavirus Infection currently on home isolation presents to ED for evaluation. Patient states that he has experienced generalized weakness, fatigue, decreased exercise tolerance, loss of sense of taste, loss of sense of smell, dry cough, and shortness of breath over the past week with persistently worsening symptoms over the past 3 days. Patient transported to [facility] via private vehicle for further care and evaluation of the aforementioned symptoms. Patient seen and evaluated in the emergency department. All lab and imaging studies reviewed. Patient found to have pulse oximetry of 88% on room air with exertion which is a consistent with acute hypoxemic respiratory failure. Patient underwent chest x-ray which showed bilateral pneumonia. Patient admitted to medical floor and initiated on pneumonia protocol as well as COVID-19 protocol. Patient denies chills, chest pain, palpitation, skin rash, or recent ill contacts. No prior admission for re view. All medication listed at time of admission has been reconciled. Advanced care planning conducted in ED. (1) Acute hypoxemic respiratory failure Current Visit: Yes Status: Acute Plan to address problem: Chest X ray, supplemental oxygen, pulse oximetry, nebulizer therapy, prone positioning while in bed, noninvasive positive pressure ventilation as clinically indicated, if patient is unable to maintain oxygen saturation via submental oxygen via nasal cannula will then initiate high flow submental oxygen. Continue current management. (2) COVID-19 virus infection Current Visit: Yes Status: Acute Plan to address problem: Coronavirus protocol: IV steroid therapy, IV antibiotic therapy, supplemental o xygen, pulse oximetry, nebulizer therapy, prone positioning while in bed, pulmonary toilet, contact precautions, isolation precautions. (3) Hypothyroidism Current Visit: Yes Status: Acute Qualifiers: Hypothyroidism type: acquired Qualified Code(s): E03.9 - Hypothyroidism, u nspecified Plan to address problem: Continue Synthroid, supportive care. (4) GERD (gastroesophageal reflux disease) Current Visit: Yes Status: Acute Qualifiers: Esophagitis presence: without esophagitis Qualified Code(s): K21.9 - Gastro-esophageal reflux disease without esophagitis Plan to address problem: PPI therapy (5) Pneumonia Current Visit: Yes Status: Acute Qualifiers: Pneumonia type: due to unspecified organism Laterality: bilateral Lung location: unspecified part of lung Qualified Code(s): J18.9 - Pneumonia, unspecified organism Plan to address problem: Pneumonia protocol: Chest x-ray, CBC, CMP, supplemental oxygen, nebulizer therapy, pulse oximetry, blood cultures, IV antibiotic therapy. (6) DVT prophylaxis Current Visit: Yes Status: Acute Plan to address problem: SCD to bilateral lower extremities while in bed, prophylactic anticoagulation. (7) Advance care planning Current Visit: Yes Status: Acute Plan to address problem: Disease education conducted, patient is full code, prognosis discussed, care plan discussed, patient knowledges understanding and agreement with care plan, +30 minutes. History Interval history: Patient seen and examined, sitting up, reports some slight improvement. Also states tested positive at home. Hospitalist Physical - Physical exam Narrative exam: General appearance: Present: mild distress - EENT Eyes: Present: PERRL ENT: hearing intact, clear oral mucosa - Neck Neck: Present: supple, normal ROM - Respiratory Respiratory effort: labored, accessory muscle use, stridor Respiratory: bilateral: diminished, rhonchi - Cardiovascular Heart Sounds: Present: S1 & S2. Absent: rub, click - Extremities Extremities: pulses symmetrical, No edema Peripheral Pulses: within normal limits - Abdominal General gastrointestinal: Present: soft, non-tender, non-distended, normal bowel sounds Male genitourinary: Present: normal - Integumentary Integumentary: Present: clear, warm, dry - Musculoskeletal Musculoskeletal: gait normal, strength equal bilaterally - Psychiatric Psychiatric: appropriate mood/affect, intact judgment & insight - Neurologic Neurologic: CNII-XII intact, moves all extremities - Constitutional Vitals: Temp Pulse Resp BP Pulse Ox 97.9 F 71 20 116/76 97 03/03/20 05:47 03/03/20 05:47 03/03/20 05:47 03/03/20 05:47 03/03/20 05:47 General appearance: Present: mild distress HEART Score - HEART Score Troponin: Troponin T < 0.010 ng/mL (0.00-0.029) 03/02/20 14:39 Results - Labs CBC & Chem 7: 03/03/20 04:00 03/03/20 05:16 Labs: Laboratory Last Values WBC 3.7 K/mm3 (4.5-11.0) L 03/03/20 04:00 RBC 4.60 M/mm3 (3.65-5.03) 03/03/20 04:00 Hgb 15.0 gm/dl (11.8-15.2) 03/03/20 04:00 Hct 43.4 % (35.5-45.6) 03/03/20 04:00 MCV 94 fl (84-94) 03/03/20 04:00 MCH 33 pg (28-32) H 03/03/20 04:00 MCHC 35 % (32-34) H 03/03/20 04:00 RDW 13.4 % (13.2-15.2) 03/03/20 04:00 Plt Count 127 K/mm3 (140-440) L 03/03/20 04:00 Lymph % (Auto) 9.9 % (13.4-35.0) L 03/03/20 04:00 [place] % (Auto) 7.0 % (0.0-7.3) 03/03/20 04:00 Eos % (Auto) 0.0 % (0.0-4.3) 03/03/20 04:00 Baso % (Auto) 0.2 % (0.0-1.8) 03/03/20 04:00 Lymph # (Auto) 0.4 K/mm3 (1.2-5.4) L 03/03/20 04:00 [place] # (Auto) 0.3 K/mm3 (0.0-0.8) 03/03/20 04:00 Eos # (Auto) 0.0 K/mm3 (0.0-0.4) 03/03/20 04:00 Baso # (Auto) 0.0 K/mm3 (0.0-0.1) 03/03/20 04:00 Seg Neutrophils % 82.9 % (40.0-70.0) H 03/03/20 04:00 Seg Neutrophils # 3.0 K/mm3 (1.8-7.7) 03/03/20 04:00 PT 12.1 Sec. (12.2-14.9) L 03/02/20 14:39 INR 0.91 (0.87-1.13) 03/02/20 14:39 APTT 30.5 Sec. (24.2-36.6) 03/02/20 14:39 D-Dimer 427.91 ng/mlDDU (0-234) H 03/02/20 14:39 VBG pH 7.342 (7.320-7.420) 03/02/20 14:39 Sodium 138 mmol/L (137-145) 03/03/20 05:16 Potassium 4.8 mmol/L (3.6-5.0) 03/03/20 05:16 Chloride 100.5 mmol/L (98-107) 03/03/20 05:16 Carbon Dioxide 32 mmol/L (22-30) H 03/03/20 05:16 Anion Gap 10 mmol/L 03/03/20 05:16 BUN 17 mg/dL (9-20) 03/03/20 05:16 Creatinine 1.0 mg/dL (0.8-1.3) 03/03/20 05:16 Estimated GFR > 60 ml/min 03/03/20 05:16 BUN/Creatinine Ratio 17 % 03/03/20 05:16 Glucose 162 mg/dL (75-100) H 03/03/20 05:16 Lactic Acid 1.40 mmol/L (0.7-2.0) 03/02/20 14:39 Calcium 9.2 mg/dL (8.4-10.2) 03/03/20 05:16 Ferritin 1320.0 ng/mL (30.0-300.0) H 03/02/20 14:39 Total Bilirubin 0.50 mg/dL (0.1-1.2) 03/02/20 14:39 Direct Bilirubin < 0.2 mg/dL (0-0.2) 03/02/20 14:39 Indirect Bilirubin 0.3 mg/dL 03/02/20 14:39 AST 29 units/L (5-40) 03/02/20 14:39 ALT 15 units/L (7-56) 03/02/20 14:39 Alkaline Phosphatase 56 units/L (35-129) 03/02/20 14:39 Lactate Dehydrogenase 349 units/L (91-180) H 03/02/20 14:39 Total Creatine Kinase 97 units/L (55-170) 03/02/20 14:39 CK-MB (CK-2) < 1.0 ng/mL (0.0-4.0) 03/02/20 14:39 CK-MB (CK-2) Rel Index 1.0 (0-4) 03/02/20 14:39 Troponin T < 0.010 ng/mL (0.00-0.029) 03/02/20 14:39 C-Reactive Protein 3.90 mg/dL (0.00-1.30) H 03/02/20 14:39 NT-Pro-B Natriuret Pep 34.21 pg/mL (0-900) 03/02/20 14:39 Total Protein 7.3 g/dL (6.3-8.2) 03/02/20 14:39 Albumin 3.5 g/dL (3.9-5) L 03/02/20 14:39 Albumin/Globulin Ratio 0.9 % 03/02/20 14:39 Procalcitonin 0.05 ng/mL (<0.15) 03/02/20 14:39 Urine Color Yellow (Yellow) 03/02/20 Unknown Urine Turbidity Clear (Clear) 03/02/20 Unknown Urine pH 5.0 (5.0-7.0) 03/02/20 Unknown Ur Specific [place] 1.025 (1.003-1.030) 03/02/20 Unknown Urine Protein 30 mg/dl mg/dL (Negative) 03/02/20 Unknown Urine Glucose (UA) Neg mg/dL (Negative) 03/02/20 Unknown Urine Ketones Neg mg/dL (Negative) 03/02/20 Unknown Urine Blood Sm (Negative) 03/02/20 Unknown Urine Nitrite Neg (Negative) 03/02/20 Unknown Urine Bilirubin Neg (Negative) 03/02/20 Unknown Urine Urobilinogen < 2.0 mg/dL (<2.0) 03/02/20 Unknown Ur Leukocyte Esterase Neg (Negative) 03/02/20 Unknown Urine WBC (Auto) 4.0 /HPF (0.0-6.0) 03/02/20 Unknown Urine RBC (Auto) 1.0 /HPF (0.0-6.0) 03/02/20 Unknown Urine Mucus Few /HPF 03/02/20 Unknown Influenza A (Rapid) Negative (Negative) 03/03/20 11:30 Influenza A (RT-PCR) Negative (Negative) 03/03/20 11:30 Influenza B (Rapid) Negative (Negative) 03/03/20 11:30 Influenza B (RT-PCR) Negative (Negative) 03/03/20 11:30 SARS-CoV-2 IgG Ab Nonreactive (NonReactive) 03/03/20 05:16 Microbiology: Microbiology 03/02/20 14:39 Peripheral/Venous Blood Culture - Preliminary Culture in Progress 03/02/20 14:44 Peripheral/Venous Blood Culture - Preliminary Culture in Progress [place]/IV: Voiding Method Toilet IV Catheter Type [Left Hand] INT / Saline Lock IV Catheter Type [Right INT / Saline Lock Antecubital] Active Medications - Current Medications Current Medications: Generic Name Dose Route Start Last Admin Trade Name Freq PRN Reason Stop Dose Admin Acetaminophen 650 mg 03/02/20 17:00 03/02/20 22:59 Tylenol PO 650 mg Q4H PRN Administration Pain MILD(1-3)/Fever >100.5/GRIJALVA Hydrocodone Bitart/Acetaminophen 1 each 03/02/20 18:00 [place] 5/325 PO Q6HR PRN PAIN Albuterol 2.5 mg 03/02/20 16:35 Proventil IH Q4HRT PRN Shortness Of Breath Heparin Sodium (Porcine) 5,000 unit 03/02/20 22:00 03/03/20 10:49 Heparin SUB-Q 5,000 unit Q12HR BAILEY Administration Ceftriaxone Sodium 2 gm in 100 mls @ 200 mls/hr 03/02/20 18:00 03/03/20 10:49 Rocephin/Ns 2 Gm/100 Ml IV 03/05/20 17:59 200 mls/hr Q24HR BAILEY Administration Protocol Azithromycin 500 mg/ Sodium 250 mls @ 250 mls/hr 03/02/20 17:00 03/03/20 11:40 Chloride IV 03/05/20 16:59 250 mls/hr Q24HR BAILEY Administration Protocol Levothyroxine Sodium 50 mcg 03/03/20 06:00 03/03/20 07:02 Synthroid PO 50 mcg DAILY@0600 BAILYE Administration Methylprednisolone Sodium Succinate 40 mg 03/02/20 22:00 03/03/20 06:02 Solu-Medrol IV 40 mg Q8HR BAILEY Administration Ondansetron HCl 4 mg 03/02/20 18:00 Zofran IV Q8H PRN Nausea And Vomiting Ondansetron HCl 4 mg 03/02/20 18:00 Zofran Odt PO Q8H PRN Nausea Sodium Chloride 10 ml 03/02/20 22:00 03/03/20 10:50 Sodium Chloride Flush Syringe 10 Ml IV 10 ml BID BAILEY Administration Sodium Chloride 10 ml 03/02/20 16:35 Sodium Chloride Flush Syringe 10 Ml IV PRN PRN LINE FLUSH Tamsulosin HCl 0.4 mg 03/03/20 10:00 03/03/20 10:49 Flomax PO 0.4 mg QDAY BAILEY Administration
[2020-03-04] MEDS: methylPREDNISolone Sod Succinate 40 MG/1 ML INJ IV SCH ×3 (05:09→22:03)
[2020-03-04] MEDS: LEVOTHYROXINE 50 MCG TAB PO SCH (05:09)
[2020-03-04] MEDS ORDERED: AZITHROMYCIN 250 MG TAB PO SCH (10:00)
[2020-03-04] MEDS: cefTRIAXone/NS 2 GM/100 ML 2 GM/100 ML BAG IV SCH (11:39)
[2020-03-04] MEDS: HEPARIN 5,000 UNIT/1 ML VIAL SUB-Q SCH ×2 (11:39→22:03)
[2020-03-04] MEDS: TAMSULOSIN 0.4 MG CAP PO SCH (11:39)
[2020-03-04] MEDS ORDERED: FUROSEMIDE 40 MG/4 ML INJ IV NR (12:00)
--- NOTE | 2020-03-04 13:17 | Progress Note ---
Assessment and Plan Cultures: Blood culture pending SARS CoV2 PCR positive Assessment: 59 years old male with history of GERD, hypothyroidism, osteoarthritis, diagnosed with COVID-19 infection as an outpatient, admitted on 03/02/2020 due to worsening generalized malaise, fatigue, loss of sense of taste and smell, dry cough shortness of breath for the last 3 days: #Severe sepsis: Present with fever and hypoxia upon ambulation. Likely due to COVID-19 pneumonia. #Severe COVID pneumonia: Chest x-ray with left-sided infiltrates. Inflammatory markers elevated with ferritin 1320, D-dimer 427. #Acute hypoxemic respiratory failure: O2 sat dropped to 88% on ambulation. Currently on room air. Recommendations: Continue steroids Start Remdesivir if hypoxia persists Monitor inflammatory markers - ferritin, Ddimer, CRP, LDH Stop ceftriaxone and azithromycin, procalcitonin <0.25 ng/mL Continue anticoagulation per System Protocol Prone positioning as possible All laboratory, cultures and imaging were reviewed. Will follow Krystal Veras MD Infectious Diseases Behavioral Interventionist [facility] ([facility]) M [phone] O [phone] Subjective Date of service: 03/04/20 Principal diagnosis: COVID Interval history: Remains in 2 L no fever Objective - Exam Narrative Exam: Review of Systems: reviewed ED and H&P notes. Deferred to prevent COVID-19 transmission. - Constitutional Vitals: Vital Signs Temp Pulse Resp BP Pulse Ox 97.9 F 72 20 111/74 89 03/04/20 05:31 03/04/20 05:31 03/03/20 23:05 03/04/20 05:31 03/04/20 05:31 Temperature -Last 24 Hours Temperature 97.9 F Temperature 97.8 F - Labs CBC & Chem 7: 03/03/20 04:00 03/03/20 05:16 Labs: Abnormal lab results 03/03/20 Range/Units Unknown Coronavirus (PCR) Positive A (Negative)
--- NOTE | 2020-03-04 13:37 | Progress Note ---
Assessment and Plan Assessment and plan: 59 YO Male with GERD, Hypothyroidism, OA, Coronavirus Infection currently on home isolation presents to ED for evaluation. Patient states that he has experienced generalized weakness, fatigue, decreased exercise tolerance, loss of sense of taste, loss of sense of smell, dry cough, and shortness of breath over the past week with persistently worsening symptoms over the past 3 days. Patient transported to [facility] via private vehicle for further care and evaluation of the aforementioned symptoms. Patient seen and evaluated in the emergency department. All lab and imaging studies reviewed. Patient found to have pulse oximetry of 88% on room air with exertion which is a consistent with acute hypoxemic respiratory failure. Patient underwent chest x-ray which showed bilateral pneumonia. Patient admitted to medical floor and initiated on pneumonia protocol as well as COVID-19 protocol. Patient denies chills, chest pain, palpitation, skin rash, or recent ill contacts. 03/04: Patient seen and examined, resting comfortable but reports significant shortness of breath with exertion. (1) Acute hypoxemic respiratory failure Current Visit: Yes Status: Acute Plan to address problem: Chest X ray, supplemental oxygen, pulse oximetry, nebulizer therapy, prone positioning while in bed, noninvasive positive pressure ventilation as clinically indicated, if patient is unable to maintain oxygen saturation via submental oxygen via nasal cannula will then initiate high flow submental oxygen. Continue current management. (2) COVID-19 virus infection Current Visit: Yes Status: Acute Plan to address problem: Coronavirus protocol: IV steroid therapy, IV antibiotic therapy, supplemental oxygen, pulse oximetry, nebulizer therapy, prone positioning while in bed, pulmonary toilet, contact precautions, isolation precautions. (3) Hypothyroidism Current Visit: Yes Status: Acute Qualifiers: Hypothyroidism type: acquired Qualified Code(s): E03.9 - Hypothyroidism, unspecified Plan to address problem: Continue Synthroid, supportive care. (4) GERD (gastroesophageal reflux disease) Current Visit: Yes Status: Acute Qualifiers: Esophagitis presence: without esophagitis Qualified Code(s): K21.9 - Gastro-esophageal reflux disease without esophagitis Plan to address problem: PPI therapy (5) Pneumonia Current Visit: Yes Status: Acute Qualifiers: Pneumonia type: due to unspecified organism Laterality: bilateral Lung location: unspecified part of lung Qualified Code(s): J18.9 - Pneumonia, unspecified organism Plan to address problem: Pneumonia protocol: Chest x-ray, CBC, CMP, supplemental oxygen, nebulizer therapy, pulse oximetry, blood cultures, IV antibiotic therapy. (6) DVT prophylaxis Current Visit: Yes Status: Acute Plan to address problem: SCD to bilateral lower extremities while in bed, prophylactic anticoagulation. (7) Advance care planning Current Visit: Yes Status: Acute Plan to address problem: Disease education conducted, patient is full code, prognosis discussed, care plan discussed, patient knowledges understanding and agreement with care plan, +30 minutes. History Interval history: Patient seen and examined, Lying in bed, some slight improvement Hospitalist Physical - Physical exam Narrative exam: General appearance: Present: mild distress, lying in bed - EENT Eyes: Present: PERRL ENT: hearing intact, clear oral mucosa - Neck Neck: Present: supple, normal ROM - Respiratory Respiratory effort: labored, accessory muscle use, stridor Respiratory: bilateral: diminished, rhonchi - Cardiovascular Heart Sounds: Present: S1 & S2. Absent: rub, click - Extremities Extremities: pulses symmetrical, No edema Peripheral Pulses: within normal limits - Abdominal General gastrointestinal: Present: soft, non-tender, non-distended, normal bowel sounds Male genitourinary: Present: normal - Integumentary Integumentary: Present: clear, warm, dry - Musculoskeletal Musculoskeletal: gait normal, strength equal bilaterally - Psychiatric Psychiatric: appropriate mood/affect, intact judgment & insight - Neurologic Neurologic: CNII-XII intact, moves all extremities - Constitutional Vitals: Temp Pulse Resp BP Pulse Ox 97.9 F 72 20 111/74 89 03/04/20 05:31 03/04/20 05:31 03/03/20 23:05 03/04/20 05:31 03/04/20 05:31 General appearance: Present: mild distress HEART Score - HEART Score Troponin: Troponin T < 0.010 ng/mL (0.00-0.029) 03/02/20 14:39 Results - Labs CBC & Chem 7: 03/03/20 04:00 03/03/20 05:16 Labs: Laboratory Last Values WBC 3.7 K/mm3 (4.5-11.0) L 03/03/20 04:00 RBC 4.60 M/mm3 (3.65-5.03) 03/03/20 04:00 Hgb 15.0 gm/dl (11.8-15.2) 03/03/20 04:00 Hct 43.4 % (35.5-45.6) 03/03/20 04:00 MCV 94 fl (84-94) 03/03/20 04:00 MCH 33 pg (28-32) H 03/03/20 04:00 MCHC 35 % (32-34) H 03/03/20 04:00 RDW 13.4 % (13.2-15.2) 03/03/20 04:00 Plt Count 127 K/mm3 (140-440) L 03/03/20 04:00 Lymph % (Auto) 9.9 % (13.4-35.0) L 03/03/20 04:00 [place] % (Auto) 7.0 % (0.0-7.3) 03/03/20 04:00 Eos % (Auto) 0.0 % (0.0-4.3) 03/03/20 04:00 Baso % (Auto) 0.2 % (0.0-1.8) 03/03/20 04:00 Lymph # (Auto) 0.4 K/mm3 (1.2-5.4) L 03/03/20 04:00 [place] # (Auto) 0.3 K/mm3 (0.0-0.8) 03/03/20 04:00 Eos # (Auto) 0.0 K/mm3 (0.0-0.4) 03/03/20 04:00 Baso # (Auto) 0.0 K/mm3 (0.0-0.1) 03/03/20 04:00 Seg Neutrophils % 82.9 % (40.0-70.0) H 03/03/20 04:00 Seg Neutrophils # 3.0 K/mm3 (1.8-7.7) 03/03/20 04:00 PT 12.1 Sec. (12.2-14.9) L 03/02/20 14:39 INR 0.91 (0.87-1.13) 03/02/20 14:39 APTT 30.5 Sec. (24.2-36.6) 03/02/20 14:39 D-Dimer 427.91 ng/mlDDU (0-234) H 03/02/20 14:39 VBG pH 7.342 (7.320-7.420) 03/02/20 14:39 Sodium 138 mmol/L (137-145) 03/03/20 05:16 Potassium 4.8 mmol/L (3.6-5.0) 03/03/20 05:16 Chloride 100.5 mmol/L (98-107) 03/03/20 05:16 Carbon Dioxide 32 mmol/L (22-30) H 03/03/20 05:16 Anion Gap 10 mmol/L 03/03/20 05:16 BUN 17 mg/dL (9-20) 03/03/20 05:16 Creatinine 1.0 mg/dL (0.8-1.3) 03/03/20 05:16 Estimated GFR > 60 ml/min 03/03/20 05:16 BUN/Creatinine Ratio 17 % 03/03/20 05:16 Glucose 162 mg/dL (75-100) H 03/03/20 05:16 Lactic Acid 1.40 mmol/L (0.7-2.0) 03/02/20 14:39 Calcium 9.2 mg/dL (8.4-10.2) 03/03/20 05:16 Ferritin 1320.0 ng/mL (30.0-300.0) H 03/02/20 14:39 Total Bilirubin 0.50 mg/dL (0.1-1.2) 03/02/20 14:39 Direct Bilirubin < 0.2 mg/dL (0-0.2) 03/02/20 14:39 Indirect Bilirubin 0.3 mg/dL 03/02/20 14:39 AST 29 units/L (5-40) 03/02/20 14:39 ALT 15 units/L (7-56) 03/02/20 14:39 Alkaline Phosphatase 56 units/L (35-129) 03/02/20 14:39 Lactate Dehydrogenase 349 units/L (91-180) H 03/02/20 14:39 Total Creatine Kinase 97 units/L (55-170) 03/02/20 14:39 CK-MB (CK-2) < 1.0 ng/mL (0.0-4.0) 03/02/20 14:39 CK-MB (CK-2) Rel Index 1.0 (0-4) 03/02/20 14:39 Troponin T < 0.010 ng/mL (0.00-0.029) 03/02/20 14:39 C-Reactive Protein 3.90 mg/dL (0.00-1.30) H 03/02/20 14:39 NT-Pro-B Natriuret Pep 34.21 pg/mL (0-900) 03/02/20 14:39 Total Protein 7.3 g/dL (6.3-8.2) 03/02/20 14:39 Albumin 3.5 g/dL (3.9-5) L 03/02/20 14:39 Albumin/Globulin Ratio 0.9 % 03/02/20 14:39 Procalcitonin 0.05 ng/mL (<0.15) 03/02/20 14:39 Urine Color Yellow (Yellow) 03/02/20 Unknown Urine Turbidity Clear (Clear) 03/02/20 Unknown Urine pH 5.0 (5.0-7.0) 03/02/20 Unknown Ur Specific [place] 1.025 (1.003-1.030) 03/02/20 Unknown Urine Protein 30 mg/dl mg/dL (Negative) 03/02/20 Unknown Urine Glucose (UA) Neg mg/dL (Negative) 03/02/20 Unknown Urine Ketones Neg mg/dL (Negative) 03/02/20 Unknown Urine Blood Sm (Negative) 03/02/20 Unknown Urine Nitrite Neg (Negative) 03/02/20 Unknown Urine Bilirubin Neg (Negative) 03/02/20 Unknown Urine Urobilinogen < 2.0 mg/dL (<2.0) 03/02/20 Unknown Ur Leukocyte Esterase Neg (Negative) 03/02/20 Unknown Urine WBC (Auto) 4.0 /HPF (0.0-6.0) 03/02/20 Unknown Urine RBC (Auto) 1.0 /HPF (0.0-6.0) 03/02/20 Unknown Urine Mucus Few /HPF 03/02/20 Unknown Coronavirus (PCR) Positive (Negative) A 03/03/20 Unknown Influenza A (Rapid) Negative (Negative) 03/03/20 11:30 Influenza A (RT-PCR) Negative (Negative) 03/03/20 11:30 Influenza B (Rapid) Negative (Negative) 03/03/20 11:30 Influenza B (RT-PCR) Negative (Negative) 03/03/20 11:30 SARS-CoV-2 IgG Ab Nonreactive (NonReactive) 03/03/20 05:16 Microbiology: Microbiology 03/02/20 Unknown Urine,Clean Catch Urine Culture - Preliminary NO GROWTH AFTER 24 HOURS 03/02/20 14:44 Peripheral/Venous Blood Culture - Preliminary NO GROWTH AFTER 24 HOURS 03/02/20 14:39 Peripheral/Venous Blood Culture - Preliminary NO GROWTH AFTER 24 HOURS [place]/IV: Voiding Method Toilet IV Catheter Type [Left Hand] INT / Saline Lock IV Catheter Type [Right INT / Saline Lock Antecubital] Active Medications - Current Medications Current Medications: Generic Name Dose Route Start Last Admin Trade Name Freq PRN Reason Stop Dose Admin Acetaminophen 650 mg 03/02/20 17:00 03/02/20 22:59 Tylenol PO 650 mg Q4H PRN Administration Pain MILD(1-3)/Fever >100.5/GRIJALVA Hydrocodone Bitart/Acetaminophen 1 each 03/02/20 18:00 [place] 5/325 PO Q6HR PRN PAIN Albuterol 2.5 mg 03/02/20 16:35 Proventil IH Q4HRT PRN Shortness Of Breath Furosemide 40 mg 03/04/20 12:00 03/04/20 11:41 Furosemide 40 Mg/4 Ml Inj IV 03/04/20 15:00 40 mg ONCE@1200 NR Administration Heparin Sodium (Porcine) 5,000 unit 03/02/20 22:00 03/04/20 11:39 Heparin SUB-Q 5,000 unit Q12HR BAILEY Administration Levothyroxine Sodium 50 mcg 03/03/20 06:00 03/04/20 05:09 Synthroid PO 50 mcg DAILY@0600 BAILEY Administration Methylprednisolone Sodium Succinate 40 mg 03/02/20 22:00 03/04/20 05:09 Solu-Medrol IV 40 mg Q8HR BAILEY Administration Ondansetron HCl 4 mg 03/02/20 18:00 Zofran IV Q8H PRN Nausea And Vomiting Ondansetron HCl 4 mg 03/02/20 18:00 Zofran Odt PO Q8H PRN Nausea Sodium Chloride 10 ml 03/02/20 22:00 03/04/20 11:39 Sodium Chloride Flush Syringe 10 Ml IV 10 ml BID BAILEY Administration Sodium Chloride 10 ml 03/02/20 16:35 Sodium Chloride Flush Syringe 10 Ml IV PRN PRN LINE FLUSH Tamsulosin HCl 0.4 mg 03/03/20 10:00 03/04/20 11:39 Flomax PO 0.4 mg QDAY BAILEY Administration
[2020-03-05 06:13] LABS: BUN/Creatinine Ratio 31; Blood Urea Nitrogen 28 mg/dL (9-20); Calcium 9.2 mg/dL (8.4-10.2); Hemolysis Index 5
[2020-03-05] MEDS: methylPREDNISolone Sod Succinate 40 MG/1 ML INJ IV SCH ×3 (06:26→22:04)
[2020-03-05] MEDS: LEVOTHYROXINE 50 MCG TAB PO SCH (06:26)
[2020-03-05] MEDS: TAMSULOSIN 0.4 MG CAP PO SCH (11:21)
[2020-03-05] MEDS: HEPARIN 5,000 UNIT/1 ML VIAL SUB-Q SCH ×2 (11:21→22:04)
--- NOTE | 2020-03-05 12:03 | Progress Note ---
Assessment and Plan Assessment and plan: 59 YO Male with GERD, Hypothyroidism, OA, Coronavirus Infection currently on home isolation presents to ED for evaluation. Patient states that he has experienced generalized weakness, fatigue, decreased exercise tolerance, loss of sense of taste, loss of sense of smell, dry cough, and shortness of breath over the past week with persistently worsening symptoms over the past 3 days. Patient transported to [facility] via private vehicle for further care and evaluation of the aforementioned symptoms. Patient seen and evaluated in the emergency department. All lab and imaging studies reviewed. Patient found to have pulse oximetry of 88% on room air with exertion which is a consistent with acute hypoxemic respiratory failure. Patient underwent chest x-ray which showed bilateral pneumonia. Patient admitted to medical floor and initiated on pneumonia protocol as well as COVID-19 protocol. Patient denies chills, chest pain, palpitation, skin rash, or recent ill contacts. 03/04: Patient seen and examined, resting comfortable but reports significant shortness of breath with exertion. 03/05: Continue Current care, encourage prone positioning. Continue oxygen therapy, continue Remdesivir and steroids (1) Acute hypoxemic respiratory failure Current Visit: Yes Status: Acute Plan to address problem: Chest X ray, supplemental oxygen, pulse oximetry, nebulizer therapy, prone positioning while in bed, noninvasive positive pressure ventilation as clinically indicated, if patient is unable to maintain oxygen saturation via submental oxygen via nasal cannula will then initiate high flow submental oxy gen. Continue current management. (2) COVID-19 virus infection Current Visit: Yes Status: Acute Plan to address problem: Coronavirus protocol: IV steroid therapy, IV antibiotic therapy, supplemental oxygen, pulse oximetry, nebulizer therapy, prone positioning while in bed, pulmonary toilet, contact precautions, isolation precautions. (3) Hypothyroidism Current Visit: Yes Status: Acute Qualifiers: Hypothyroidism type: acquired Qualified Code(s): E03.9 - Hypothyroidism, unspecified Plan to address problem: Continue Synthroid, supportive care. (4) GERD (gastroesophageal reflux disease) Current Visit: Yes Status: Acute Qualifiers: Esophagitis presence: without esophagitis Qualified Code(s): K21.9 - Gastro-esophageal reflux disease without esophagitis Plan to address problem: PPI therapy (5) Pneumonia Current Visit: Yes Status: Acute Qualifiers: Pneumonia type: due to unspecified organism Laterality: bilateral Lung location: unspecified part of lung Qualified Code(s): J18.9 - Pneumonia, unspecified organism Plan to address problem: Pneumonia protocol: Chest x-ray, CBC, CMP, supplemental oxygen, nebulizer therapy, pulse oximetry, blood cultures, IV antibiotic therapy. (6) DVT prophylaxis Current Visit: Yes Status: Acute Plan to address problem: SCD to bilateral lower extremities while in bed, prophylactic anticoagulation. (7) Advance care planning Current Visit: Yes Status: Acute Plan to address problem: Disease education conducted, patient is full code, prognosis discussed, care plan discussed, patient knowledges understanding and agreement with care plan, +30 minutes. History Interval history: Patient seen and examined, Lying in bed, some slight improvement, severe hypoxia still persist, noted 93% with oxygen sat on 5 liters, 83% on room air. Hospitalist Physical - Physical exam Narrative exam: General appearance: Present: Sitting up in bed - EENT Eyes: Present: PERRL ENT: hearing intact, clear oral mucosa - Neck Neck: Present: supple, normal ROM - Respiratory Respiratory effort: labored, accessory muscle use, stridor Respiratory: bilateral: diminished, rhonchi - Cardiovascular Heart Sounds: Present: S1 & S2. Absent: rub, click - Extremities Extremities: pulses symmetrical, No edema Peripheral Pulses: within normal limits - Abdominal General gastrointestinal: Present: soft, non-tender, non-distended, normal bowel sounds Male genitourinary: Present: normal - Integumentary Integumentary: Present: clear, warm, dry - Musculoskeletal Musculoskeletal: gait normal, strength equal bilaterally - Psychiatric Psychiatric: appropriate mood/affect, intact judgment & insight - Neurologic Neurologic: CNII-XII intact, moves all extremities - Constitutional Vitals: Temp Pulse Resp BP Pulse Ox 97.8 F 70 20 119/71 83 L 03/05/20 06:13 03/05/20 06:13 03/05/20 06:13 03/05/20 06:13 03/05/20 08:55 General appearance: Present: mild distress HEART Score - HEART Score Troponin: Troponin T < 0.010 ng/mL (0.00-0.029) 03/02/20 14:39 Results - Labs CBC & Chem 7: 03/03/20 04:00 03/05/20 05:02 Labs: Laboratory Last Values WBC 3.7 K/mm3 (4.5-11.0) L 03/03/20 04:00 RBC 4.60 M/mm3 (3.65-5.03) 03/03/20 04:00 Hgb 15.0 gm/dl (11.8-15.2) 03/03/20 04:00 Hct 43.4 % (35.5-45.6) 03/03/20 04:00 MCV 94 fl (84-94) 03/03/20 04:00 MCH 33 pg (28-32) H 03/03/20 04:00 MCHC 35 % (32-34) H 03/03/20 04:00 RDW 13.4 % (13.2-15.2) 03/03/20 04:00 Plt Count 127 K/mm3 (140-440) L 03/03/20 04:00 Lymph % (Auto) 9.9 % (13.4-35.0) L 03/03/20 04:00 [place] % (Auto) 7.0 % (0.0-7.3) 03/03/20 04:00 Eos % (Auto) 0.0 % (0.0-4.3) 03/03/20 04:00 Baso % (Auto) 0.2 % (0.0-1.8) 03/03/20 04:00 Lymph # (Auto) 0.4 K/mm3 (1.2-5.4) L 03/03/20 04:00 [place] # (Auto) 0.3 K/mm3 (0.0-0.8) 03/03/20 04:00 Eos # (Auto) 0.0 K/mm3 (0.0-0.4) 03/03/20 04:00 Baso # (Auto) 0.0 K/mm3 (0.0-0.1) 03/03/20 04:00 Seg Neutrophils % 82.9 % (40.0-70.0) H 03/03/20 04:00 Seg Neutrophils # 3.0 K/mm3 (1.8-7.7) 03/03/20 04:00 PT 12.1 Sec. (12.2-14.9) L 03/02/20 14:39 INR 0.91 (0.87-1.13) 03/02/20 14:39 APTT 30.5 Sec. (24.2-36.6) 03/02/20 14:39 D-Dimer 427.91 ng/mlDDU (0-234) H 03/02/20 14:39 VBG pH 7.342 (7.320-7.420) 03/02/20 14:39 Sodium 140 mmol/L (137-145) 03/05/20 05:02 Potassium 4.3 mmol/L (3.6-5.0) 03/05/20 05:02 Chloride 100.8 mmol/L (98-107) 03/05/20 05:02 Carbon Dioxide 27 mmol/L (22-30) 03/05/20 05:02 Anion Gap 17 mmol/L 03/05/20 05:02 BUN 28 mg/dL (9-20) H 03/05/20 05:02 Creatinine 0.9 mg/dL (0.8-1.3) 03/05/20 05:02 Estimated GFR > 60 ml/min 03/05/20 05:02 BUN/Creatinine Ratio 31 % 03/05/20 05:02 Glucose 158 mg/dL (75-100) H 03/05/20 05:02 Lactic Acid 1.40 mmol/L (0.7-2.0) 03/02/20 14:39 Calcium 9.2 mg/dL (8.4-10.2) 03/05/20 05:02 Ferritin 1320.0 ng/mL (30.0-300.0) H 03/02/20 14:39 Total Bilirubin 0.50 mg/dL (0.1-1.2) 03/02/20 14:39 Direct Bilirubin < 0.2 mg/dL (0-0.2) 03/02/20 14:39 Indirect Bilirubin 0.3 mg/dL 03/02/20 14:39 AST 29 units/L (5-40) 03/02/20 14:39 ALT 15 units/L (7-56) 03/02/20 14:39 Alkaline Phosphatase 56 units/L (35-129) 03/02/20 14:39 Lactate Dehydrogenase 349 units/L (91-180) H 03/02/20 14:39 Total Creatine Kinase 97 units/L (55-170) 03/02/20 14:39 CK-MB (CK-2) < 1.0 ng/mL (0.0-4.0) 03/02/20 14:39 CK-MB (CK-2) Rel Index 1.0 (0-4) 03/02/20 14:39 Troponin T < 0.010 ng/mL (0.00-0.029) 03/02/20 14:39 C-Reactive Protein 3.90 mg/dL (0.00-1.30) H 03/02/20 14:39 NT-Pro-B Natriuret Pep 34.21 pg/mL (0-900) 03/02/20 14:39 Total Protein 7.3 g/dL (6.3-8.2) 03/02/20 14:39 Albumin 3.5 g/dL (3.9-5) L 03/02/20 14:39 Albumin/Globulin Ratio 0.9 % 03/02/20 14:39 Procalcitonin 0.05 ng/mL (<0.15) 03/02/20 14:39 Urine Color Yellow (Yellow) 03/02/20 Unknown Urine Turbidity Clear (Clear) 03/02/20 Unknown Urine pH 5.0 (5.0-7.0) 03/02/20 Unknown Ur Specific [place] 1.025 (1.003-1.030) 03/02/20 Unknown Urine Protein 30 mg/dl mg/dL (Negative) 03/02/20 Unknown Urine Glucose (UA) Neg mg/dL (Negative) 03/02/20 Unknown Urine Ketones Neg mg/dL (Negative) 03/02/20 Unknown Urine Blood Sm (Negative) 03/02/20 Unknown Urine Nitrite Neg (Negative) 03/02/20 Unknown Urine Bilirubin Neg (Negative) 03/02/20 Unknown Urine Urobilinogen < 2.0 mg/dL (<2.0) 03/02/20 Unknown Ur Leukocyte Esterase Neg (Negative) 03/02/20 Unknown Urine WBC (Auto) 4.0 /HPF (0.0-6.0) 03/02/20 Unknown Urine RBC (Auto) 1.0 /HPF (0.0-6.0) 03/02/20 Unknown Urine Mucus Few /HPF 03/02/20 Unknown Coronavirus (PCR) Positive (Negative) A 03/03/20 Unknown Influenza A (Rapid) Negative (Negative) 03/03/20 11:30 Influenza A (RT-PCR) Negative (Negative) 03/03/20 11:30 Influenza B (Rapid) Negative (Negative) 03/03/20 11:30 Influenza B (RT-PCR) Negative (Negative) 03/03/20 11:30 SARS-CoV-2 IgG Ab Nonreactive (NonReactive) 03/03/20 05:16 Microbiology: Microbiology 03/02/20 14:39 Peripheral/Venous Blood Culture - Preliminary NO GROWTH AFTER 48 HOURS 03/02/20 14:44 Peripheral/Venous Blood Culture - Preliminary NO GROWTH AFTER 48 HOURS 03/02/20 Unknown Urine,Clean Catch Urine Culture - Preliminary NO GROWTH AFTER 24 HOURS [place]/IV: Voiding Method Urinal IV Catheter Type [Left Hand] INT / Saline Lock IV Catheter Type [Right INT / Saline Lock Antecubital] Active Medications - Current Medications Current Medications: Generic Name Dose Route Start Last Admin Trade Name Freq PRN Reason Stop Dose Admin Acetaminophen 650 mg 03/02/20 17:00 03/02/20 22:59 Tylenol PO 650 mg Q4H PRN Administration Pain MILD(1-3)/Fever >100.5/GRIJALVA Hydrocodone Bitart/Acetaminophen 1 each 03/02/20 18:00 [place] 5/325 PO Q6HR PRN PAIN Albuterol 2.5 mg 03/02/20 16:35 Proventil IH Q4HRT PRN Shortness Of Breath Heparin Sodium (Porcine) 5,000 unit 03/02/20 22:00 03/05/20 11:21 Heparin SUB-Q 5,000 unit Q12HR BAILEY Administration Levothyroxine Sodium 50 mcg 03/03/20 06:00 03/05/20 06:26 Synthroid PO 50 mcg DAILY@0600 BAILEY Administration Methylprednisolone Sodium Succinate 40 mg 03/02/20 22:00 03/05/20 06:26 Solu-Medrol IV 40 mg Q8HR BAILEY Administration Ondansetron HCl 4 mg 03/02/20 18:00 Zofran IV Q8H PRN Nausea And Vomiting Ondansetron HCl 4 mg 03/02/20 18:00 Zofran Odt PO Q8H PRN Nausea Sodium Chloride 10 ml 03/02/20 22:00 03/05/20 11:21 Sodium Chloride Flush Syringe 10 Ml IV 10 ml BID BAILEY Administration Sodium Chloride 10 ml 03/02/20 16:35 03/05/20 06:27 Sodium Chloride Flush Syringe 10 Ml IV 10 ml PRN PRN Administration LINE FLUSH Tamsulosin HCl 0.4 mg 03/03/20 10:00 03/05/20 11:21 Flomax PO 0.4 mg QDAY BAILEY Administration
[2020-03-06] MEDS: LEVOTHYROXINE 50 MCG TAB PO SCH (05:08)
[2020-03-06] MEDS: methylPREDNISolone Sod Succinate 40 MG/1 ML INJ IV SCH ×3 (05:08→21:37)
[2020-03-06] MEDS: TAMSULOSIN 0.4 MG CAP PO SCH (12:05)
[2020-03-06] MEDS: HEPARIN 5,000 UNIT/1 ML VIAL SUB-Q SCH ×2 (12:06→21:37)
--- NOTE | 2020-03-06 12:17 | Progress Note ---
Assessment and Plan Assessment and plan: 59 YO Male with GERD, Hypothyroidism, OA, Coronavirus Infection currently on home isolation presents to ED for evaluation. Patient states that he has experienced generalized weakness, fatigue, decreased exercise tolerance, loss of sense of taste, loss of sense of smell, dry cough, and shortness of breath over the past week with persistently worsening symptoms over the past 3 days. Patient transported to [facility] via private vehicle for further care and evaluation of the aforementioned symptoms. Patient seen and evaluated in the emergency department. All lab and imaging studies reviewed. Patient found to have pulse oximetry of 88% on room air with exertion which is a consistent with acute hypoxemic respiratory failure. Patient underwent chest x-ray which showed bilateral pneumonia. Patient admitted to medical floor and initiated on pneumonia protocol as well as COVID-19 protocol. Patient denies chills, chest pain, palpitation, skin rash, or recent ill contacts. 03/04: Patient seen and examined, resting comfortable but reports significant shortness of breath with exertion. 03/05: Continue Current care, encourage prone positioning. Continue oxygen therapy, continue Remdesivir and steroids 03/06: Discussed with pharmacy team today they will reach out to infectious disease physician to see if patient will benefit from the remdesivir being that he is on oxygen per the policy of [facility]. Continue Decadron at this time. (1) Acute hypoxemic respiratory failure Current Visit: Yes Status: Acute Plan to address problem: Chest X ray, supplemental oxygen, pulse oximetry, nebulizer therapy, prone positioning while in bed, noninvasive positive pressure ventilation as clinically indicated, if patient is unable to maintain oxygen saturation via submental oxygen via nasal cannula will then initiate high flow submental oxygen. Continue current management. (2) COVID-19 virus infection Current Visit: Yes Status: Acute Plan to address problem: Coronavirus protocol: IV steroid therapy, IV antibiotic therapy, supplemental oxygen, pulse oximetry, nebulizer therapy, prone positioning while in bed, pulmonary toilet, contact precautions, isolation precautions. (3) Hypothyroidism Current Visit: Yes Status: Acute Qualifiers: Hypothyroidism type: acquired Qualified Code(s): E03.9 - Hypothyroidism, unspecified Plan to address problem: Continue Synthroid, supportive care. (4) GERD (gastroesophageal reflux disease) Current Visit: Yes Status: Acute Qualifiers: Esophagitis presence: without esophagitis Qualified Code(s): K21.9 - Gastro-esophageal reflux disease without esophagitis Plan to address problem: PPI therapy (5) Pneumonia Current Visit: Yes Status: Acute Qualifiers: Pneumonia type: due to unspecified organism Laterality: bilateral Lung location: unspecified part of lung Qualified Code(s): J18.9 - Pneumonia, unspecified organism Plan to address problem: Pneumonia protocol: Chest x-ray, CBC, CMP, supplemental oxygen, nebulizer therapy, pulse oximetry, blood cultures, IV antibiotic therapy. (6) DVT prophylaxis Current Visit: Yes Status: Acute Plan to address problem: SCD to bilateral lower extremities while in bed, prophylactic anticoagulation. (7) Advance care planning Current Visit: Yes Status: Acute Plan to address problem: Disease education conducted, patient is full code, prognosis discussed, care plan discussed, patient knowledges understanding and agreement with care plan, +30 minutes. History Interval history: Patient seen and examined, Lying in bed, some slight improvement, severe hypoxia still persist, oxygen down to 4 L Hospitalist Physical - Physical exam Narrative exam: General appearance: Present: Sitting up in bed - EENT Eyes: Present: PERRL ENT: hearing intact, clear oral mucosa - Neck Neck: Present: supple, normal ROM - Respiratory Respiratory effort: labored, accessory muscle use, stridor Respiratory: bilateral: diminished, rhonchi - Cardiovascular Heart Sounds: Present: S1 & S2. Absent: rub, click - Extremities Extremities: pulses symmetrical, No edema Peripheral Pulses: within normal limits - Abdominal General gastrointestinal: Present: soft, non-tender, non-distended, normal bowel sounds Male genitourinary: Present: normal - Integumentary Integumentary: Present: clear, warm, dry - Musculoskeletal Musculoskeletal: gait normal, strength equal bilaterally - Psychiatric Psychiatric: appropriate mood/affect, intact judgment & insight - Neurologic Neurologic: CNII-XII intact, moves all extremities - Constitutional Vitals: Temp Pulse Resp BP Pulse Ox 99.5 F 69 20 130/78 89 03/06/20 04:15 03/06/20 04:15 03/06/20 04:15 03/06/20 04:15 03/06/20 09:39 General appearance: Present: mild distress HEART Score - HEART Score Troponin: Troponin T < 0.010 ng/mL (0.00-0.029) 03/02/20 14:39 Results - Labs CBC & Chem 7: 03/03/20 04:00 03/05/20 05:02 Labs: Laboratory Last Values WBC 3.7 K/mm3 (4.5-11.0) L 03/03/20 04:00 RBC 4.60 M/mm3 (3.65-5.03) 03/03/20 04:00 Hgb 15.0 gm/dl (11.8-15.2) 03/03/20 04:00 Hct 43.4 % (35.5-45.6) 03/03/20 04:00 MCV 94 fl (84-94) 03/03/20 04:00 MCH 33 pg (28-32) H 03/03/20 04:00 MCHC 35 % (32-34) H 03/03/20 04:00 RDW 13.4 % (13.2-15.2) 03/03/20 04:00 Plt Count 127 K/mm3 (140-440) L 03/03/20 04:00 Lymph % (Auto) 9.9 % (13.4-35.0) L 03/03/20 04:00 [place] % (Auto) 7.0 % (0.0-7.3) 03/03/20 04:00 Eos % (Auto) 0.0 % (0.0-4.3) 03/03/20 04:00 Baso % (Auto) 0.2 % (0.0-1.8) 03/03/20 04:00 Lymph # (Auto) 0.4 K/mm3 (1.2-5.4) L 03/03/20 04:00 [place] # (Auto) 0.3 K/mm3 (0.0-0.8) 03/03/20 04:00 Eos # (Auto) 0.0 K/mm3 (0.0-0.4) 03/03/20 04:00 Baso # (Auto) 0.0 K/mm3 (0.0-0.1) 03/03/20 04:00 Seg Neutrophils % 82.9 % (40.0-70.0) H 03/03/20 04:00 Seg Neutrophils # 3.0 K/mm3 (1.8-7.7) 03/03/20 04:00 PT 12.1 Sec. (12.2-14.9) L 03/02/20 14:39 INR 0.91 (0.87-1.13) 03/02/20 14:39 APTT 30.5 Sec. (24.2-36.6) 03/02/20 14:39 D-Dimer 427.91 ng/mlDDU (0-234) H 03/02/20 14:39 VBG pH 7.342 (7.320-7.420) 03/02/20 14:39 Sodium 140 mmol/L (137-145) 03/05/20 05:02 Potassium 4.3 mmol/L (3.6-5.0) 03/05/20 05:02 Chloride 100.8 mmol/L (98-107) 03/05/20 05:02 Carbon Dioxide 27 mmol/L (22-30) 03/05/20 05:02 Anion Gap 17 mmol/L 03/05/20 05:02 BUN 28 mg/dL (9-20) H 03/05/20 05:02 Creatinine 0.9 mg/dL (0.8-1.3) 03/05/20 05:02 Estimated GFR > 60 ml/min 03/05/20 05:02 BUN/Creatinine Ratio 31 % 03/05/20 05:02 Glucose 158 mg/dL (75-100) H 03/05/20 05:02 Lactic Acid 1.40 mmol/L (0.7-2.0) 03/02/20 14:39 Calcium 9.2 mg/dL (8.4-10.2) 03/05/20 05:02 Ferritin 1320.0 ng/mL (30.0-300.0) H 03/02/20 14:39 Total Bilirubin 0.50 mg/dL (0.1-1.2) 03/02/20 14:39 Direct Bilirubin < 0.2 mg/dL (0-0.2) 03/02/20 14:39 Indirect Bilirubin 0.3 mg/dL 03/02/20 14:39 AST 29 units/L (5-40) 03/02/20 14:39 ALT 15 units/L (7-56) 03/02/20 14:39 Alkaline Phosphatase 56 units/L (35-129) 03/02/20 14:39 Lactate Dehydrogenase 349 units/L (91-180) H 03/02/20 14:39 Total Creatine Kinase 97 units/L (55-170) 03/02/20 14:39 CK-MB (CK-2) < 1.0 ng/mL (0.0-4.0) 03/02/20 14:39 CK-MB (CK-2) Rel Index 1.0 (0-4) 03/02/20 14:39 Troponin T < 0.010 ng/mL (0.00-0.029) 03/02/20 14:39 C-Reactive Protein 3.90 mg/dL (0.00-1.30) H 03/02/20 14:39 NT-Pro-B Natriuret Pep 34.21 pg/mL (0-900) 03/02/20 14:39 Total Protein 7.3 g/dL (6.3-8.2) 03/02/20 14:39 Albumin 3.5 g/dL (3.9-5) L 03/02/20 14:39 Albumin/Globulin Ratio 0.9 % 03/02/20 14:39 Procalcitonin 0.05 ng/mL (<0.15) 03/02/20 14:39 Urine Color Yellow (Yellow) 03/02/20 Unknown Urine Turbidity Clear (Clear) 03/02/20 Unknown Urine pH 5.0 (5.0-7.0) 03/02/20 Unknown Ur Specific [place] 1.025 (1.003-1.030) 03/02/20 Unknown Urine Protein 30 mg/dl mg/dL (Negative) 03/02/20 Unknown Urine Glucose (UA) Neg mg/dL (Negative) 03/02/20 Unknown Urine Ketones Neg mg/dL (Negative) 03/02/20 Unknown Urine Blood Sm (Negative) 03/02/20 Unknown Urine Nitrite Neg (Negative) 03/02/20 Unknown Urine Bilirubin Neg (Negative) 03/02/20 Unknown Urine Urobilinogen < 2.0 mg/dL (<2.0) 03/02/20 Unknown Ur Leukocyte Esterase Neg (Negative) 03/02/20 Unknown Urine WBC (Auto) 4.0 /HPF (0.0-6.0) 03/02/20 Unknown Urine RBC (Auto) 1.0 /HPF (0.0-6.0) 03/02/20 Unknown Urine Mucus Few /HPF 03/02/20 Unknown Coronavirus (PCR) Positive (Negative) A 03/03/20 Unknown Influenza A (Rapid) Negative (Negative) 03/03/20 11:30 Influenza A (RT-PCR) Negative (Negative) 03/03/20 11:30 Influenza B (Rapid) Negative (Negative) 03/03/20 11:30 Influenza B (RT-PCR) Negative (Negative) 03/03/20 11:30 SARS-CoV-2 IgG Ab Nonreactive (NonReactive) 03/03/20 05:16 Microbiology: Microbiology 03/02/20 14:44 Peripheral/Venous Blood Culture - Preliminary NO GROWTH AFTER 72 HOURS 03/02/20 14:39 Peripheral/Venous Blood Culture - Preliminary NO GROWTH AFTER 72 HOURS 03/02/20 Unknown Urine,Clean Catch Urine Culture - Final NO GROWTH AFTER 48 HOURS [place]/IV: Voiding Method Urinal IV Catheter Type [Left Hand] INT / Saline Lock IV Catheter Type [Right INT / Saline Lock Antecubital] Active Medications - Current Medications Current Medications: Generic Name Dose Route Start Last Admin Trade Name Freq PRN Reason Stop Dose Admin Acetaminophen 650 mg 03/02/20 17:00 03/02/20 22:59 Tylenol PO 650 mg Q4H PRN Administration Pain MILD(1-3)/Fever >100.5/GRIJALVA Hydrocodone Bitart/Acetaminophen 1 each 03/02/20 18:00 [place] 5/325 PO Q6HR PRN PAIN Albuterol 2.5 mg 03/02/20 16:35 Proventil IH Q4HRT PRN Shortness Of Breath Heparin Sodium (Porcine) 5,000 unit 03/02/20 22:00 03/06/20 12:06 Heparin SUB-Q 5,000 unit Q12HR BAILEY Administration Levothyroxine Sodium 50 mcg 03/03/20 06:00 03/06/20 05:08 Synthroid PO 50 mcg DAILY@0600 BAILEY Administration Methylprednisolone Sodium Succinate 40 mg 03/02/20 22:00 03/06/20 05:08 Solu-Medrol IV 40 mg Q8HR BAILEY Administration Ondansetron HCl 4 mg 03/02/20 18:00 Zofran IV Q8H PRN Nausea And Vomiting Ondansetron HCl 4 mg 03/02/20 18:00 Zofran Odt PO Q8H PRN Nausea Sodium Chloride 10 ml 03/02/20 22:00 03/06/20 12:06 Sodium Chloride Flush Syringe 10 Ml IV 10 ml BID BAILEY Administration Sodium Chloride 10 ml 03/02/20 16:35 03/05/20 06:27 Sodium Chloride Flush Syringe 10 Ml IV 10 ml PRN PRN Administration LINE FLUSH Tamsulosin HCl 0.4 mg 03/03/20 10:00 03/06/20 12:05 Flomax PO 0.4 mg QDAY BAILEY Administration
--- NOTE | 2020-03-06 13:20 | XRay Report ---
CHEST 1 VIEW 03/06/2020 1:02 PM INDICATION / CLINICAL INFORMATION: shortness of breath. COMPARISON: 03/02/20 FINDINGS: SUPPORT DEVICES: None. HEART / MEDIASTINUM: No significant abnormality. LUNGS / PLEURA: Interval worsening of patchy bilateral pulmonary opacities. No pneumothorax. ADDITIONAL FINDINGS: No significant additional findings. IMPRESSION: 1. Interval worsening of patchy bilateral pulmonary opacities. Atypical/viral pneumonia should be con sidered. Signer Name: Collin Sheppard MD Signed: 03/06/2020 1:15 PM Workstation Name: [id number]
[2020-03-07] MEDS: methylPREDNISolone Sod Succinate 40 MG/1 ML INJ IV SCH ×3 (05:24→21:29)
[2020-03-07] MEDS: LEVOTHYROXINE 50 MCG TAB PO SCH (05:24)
--- NOTE | 2020-03-07 09:34 | Progress Note ---
Assessment and Plan Cultures: Blood culture no growth today SARS CoV2 PCR positive SARS Covid 2 IgG negative Assessment: 59 years old male with history of GERD, hypothyroidism, osteoarthritis, diagnosed with COVID-19 infection as an outpatient, admitted on 03/02/2020 due to worsening generalized malaise, fatigue, loss of sense of taste and smell, dry cough shortness of breath for the last 3 days: #Severe sepsis: Present with fever and hypoxia upon ambulation. Likely due to COVID-19 pneumonia. #Severe COVID pneumonia: Chest x-ray with left-sided infiltrates. Inflammatory markers elevated with ferritin 1320, D-dimer 427. #Acute hypoxemic respiratory failure: O2 sat dropped to 88% on ambulation. Now on 4 L nasal cannula. Recommendations: -Continue steroids -Start Remdesivir total 5 days -Monitor inflammatory markers - ferritin, Ddimer, CRP, LDH-ordered today -Patient may benefit from Covid convalescent plasma -Continue anticoagulation per System Protocol -Prone positioning as possible All laboratory, cultures and imaging were reviewed. Will follow Krystal Veras MD Infectious Diseases [employer] [facility] [phone] Subjective Date of service: 03/07/20 Principal diagnosis: COVID Interval history: Patient is now on 4 L nasal cannula, no fever noted desaturation Objective - Exam Narrative Exam: Review of Systems: reviewed ED and H&P notes. Deferred to prevent COVID-19 transmission. - Constitutional Vitals: Vital Signs Temp Pulse Resp BP Pulse Ox 97.8 F 49 L 18 118/68 92 03/07/20 04:08 03/07/20 04:08 03/07/20 04:08 03/07/20 04:08 03/07/20 04:08 Temperature -Last 24 Hours Temperature 97.8 F Temperature 97.8 F Temperature 97.8 F Temperature 97.7 F Temperature 97.5 F - Labs CBC & Chem 7: 03/03/20 04:00 03/05/20 05:02
[2020-03-07] MEDS: HEPARIN 5,000 UNIT/1 ML VIAL SUB-Q SCH ×2 (10:05→21:29)
[2020-03-07] MEDS: TAMSULOSIN 0.4 MG CAP PO SCH (10:06)
--- NOTE | 2020-03-07 12:12 | Progress Note ---
Assessment and Plan Assessment and plan: 59 YO Male with GERD, Hypothyroidism, OA, Coronavirus Infection currently on home isolation presents to ED for evaluation. Patient states that he has experienced generalized weakness, fatigue, decreased exercise tolerance, loss of sense of taste, loss of sense of smell, dry cough, and shortness of breath over the past week with persistently worsening symptoms over the past 3 days. Patient transported to [facility] via private vehicle for further care and evaluation of the aforementioned symptoms. Patient seen and evaluated in the emergency department. All lab and imaging studies reviewed. Patient found to have pulse oximetry of 88% on room air with exertion which is a consistent with acute hypoxemic respiratory failure. Patient underwent chest x-ray which showed bilateral pneumonia. Patient admitted to medical floor and initiated on pneumonia protocol as well as COVID-19 protocol. Patient denies chills, chest pain, palpitation, skin rash, or recent ill contacts. 03/04: Patient seen and examined, resting comfortable but reports significant shortness of breath with exertion. 03/05: Continue Current care, encourage prone positioning. Continue oxygen therapy, continue Remdesivir and steroids 03/06: Discussed with pharmacy team today they will reach out to infectious disease physician to see if patient will benefit from the remdesivir being that he is on oxygen per the policy of [facility]. Continue Decadron at this time. 03/07: Patient continues with oxygen, STARTED ON Remdesivir, wean oxygen as tolerated. (1) Acute hypoxemic respiratory failure Current Visit: Yes Status: Acute Plan to address problem: Chest X ray, supplemental oxygen, pulse oximetry, nebulizer therapy, prone positioning while in bed, noninvasive positive pressure ventilation as clinically indicated, if patient is unable to maintain oxygen saturation via submental oxygen via nasal cannula will then initiate high flow submental oxygen. Continue current management. (2) COVID-19 virus infection Current Visit: Yes Status: Acute Plan to address problem: Coronavirus protocol: IV steroid therapy, IV antibiotic therapy, supplemental oxygen, pulse oximetry, nebulizer therapy, prone positioning while in bed, pulmonary toilet, contact precautions, isolation precautions. (3) Hypothyroidism Current Visit: Yes Status: Acute Qualifiers: Hypothyroidism type: acquired Qualified Code(s): E03.9 - Hypothyroidism, unspecified Plan to address problem: Continue Synthroid, supportive care. (4) GERD (gastroesophageal reflux disease) Current Visit: Yes Status: Acute Qualifiers: Esophagitis presence: without esophagitis Qualified Code(s): K21.9 - Gastro-esophageal reflux disease without esophagitis Plan to address problem: PPI therapy (5) Pneumonia Current Visit: Yes Status: Acute Qualifiers: Pneumonia type: due to unspecified organism Laterality: bilateral Lung location: unspecified part of lung Qualified Code(s): J18.9 - Pneumonia, unspecified organism Plan to address problem: Pneumonia protocol: Chest x-ray, CBC, CMP, supplemental oxygen, nebulizer therapy, pulse oximetry, blood cultures, IV antibiotic therapy. (6) DVT prophylaxis Current Visit: Yes Status: Acute Plan to address problem: SCD to bilateral lower extremities while in bed, prophylactic anticoagulation. (7) Advance care planning Current Visit: Yes Status: Acute Plan to address problem: Disease education conducted, patient is full code, prognosis discussed, care plan discussed, patient knowledges understanding and agreement with care plan, +30 minutes. History Interval history: Patient seen and examined, Lying in bed, some slight improvement, severe hypoxia still persist, still oxygen down to 4 L with sat of 88-91% Hospitalist Physical - Physical exam Narrative exam: General appearance: Present: Sitting up in bed - EENT Eyes: Present: PERRL ENT: hearing intact, clear oral mucosa - Neck Neck: Present: supple, normal ROM - Respiratory Respiratory effort: labored, accessory muscle use, stridor Respiratory: bilateral: diminished, rhonchi - Cardiovascular Heart Sounds: Present: S1 & S2. Absent: rub, click - Extremities Extremities: pulses symmetrical, No edema Peripheral Pulses: within normal limits - Abdominal General gastrointestinal: Present: soft, non-tender, non-distended, normal bowel sounds Male genitourinary: Present: normal - Integumentary Integumentary: Present: clear, warm, dry - Musculoskeletal Musculoskeletal: gait normal, strength equal bilaterally - Psychiatric Psychiatric: appropriate mood/affect, intact judgment & insight - Neurologic Neurologic: CNII-XII intact, moves all extremities - Constitutional Vitals: Temp Pulse Resp BP Pulse Ox 97.8 F 49 L 18 118/68 92 03/07/20 04:08 03/07/20 04:08 03/07/20 04:08 03/07/20 04:08 03/07/20 04:08 General appearance: Present: mild distress HEART Score - HEART Score Troponin: Troponin T < 0.010 ng/mL (0.00-0.029) 03/02/20 14:39 Results - Labs CBC & Chem 7: 03/03/20 04:00 03/05/20 05:02 Labs: Laboratory Last Values WBC 3.7 K/mm3 (4.5-11.0) L 03/03/20 04:00 RBC 4.60 M/mm3 (3.65-5.03) 03/03/20 04:00 Hgb 15.0 gm/dl (11.8-15.2) 03/03/20 04:00 Hct 43.4 % (35.5-45.6) 03/03/20 04:00 MCV 94 fl (84-94) 03/03/20 04:00 MCH 33 pg (28-32) H 03/03/20 04:00 MCHC 35 % (32-34) H 03/03/20 04:00 RDW 13.4 % (13.2-15.2) 03/03/20 04:00 Plt Count 127 K/mm3 (140-440) L 03/03/20 04:00 Lymph % (Auto) 9.9 % (13.4-35.0) L 03/03/20 04:00 [place] % (Auto) 7.0 % (0.0-7.3) 03/03/20 04:00 Eos % (Auto) 0.0 % (0.0-4.3) 03/03/20 04:00 Baso % (Auto) 0.2 % (0.0-1.8) 03/03/20 04:00 Lymph # (Auto) 0.4 K/mm3 (1.2-5.4) L 03/03/20 04:00 [place] # (Auto) 0.3 K/mm3 (0.0-0.8) 03/03/20 04:00 Eos # (Auto) 0.0 K/mm3 (0.0-0.4) 03/03/20 04:00 Baso # (Auto) 0.0 K/mm3 (0.0-0.1) 03/03/20 04:00 Seg Neutrophils % 82.9 % (40.0-70.0) H 03/03/20 04:00 Seg Neutrophils # 3.0 K/mm3 (1.8-7.7) 03/03/20 04:00 PT 12.1 Sec. (12.2-14.9) L 03/02/20 14:39 INR 0.91 (0.87-1.13) 03/02/20 14:39 APTT 30.5 Sec. (24.2-36.6) 03/02/20 14:39 D-Dimer 427.91 ng/mlDDU (0-234) H 03/02/20 14:39 VBG pH 7.342 (7.320-7.420) 03/02/20 14:39 Sodium 140 mmol/L (137-145) 03/05/20 05:02 Potassium 4.3 mmol/L (3.6-5.0) 03/05/20 05:02 Chloride 100.8 mmol/L (98-107) 03/05/20 05:02 Carbon Dioxide 27 mmol/L (22-30) 03/05/20 05:02 Anion Gap 17 mmol/L 03/05/20 05:02 BUN 28 mg/dL (9-20) H 03/05/20 05:02 Creatinine 0.9 mg/dL (0.8-1.3) 03/05/20 05:02 Estimated GFR > 60 ml/min 03/05/20 05:02 BUN/Creatinine Ratio 31 % 03/05/20 05:02 Glucose 158 mg/dL (75-100) H 03/05/20 05:02 Lactic Acid 1.40 mmol/L (0.7-2.0) 03/02/20 14:39 Calcium 9.2 mg/dL (8.4-10.2) 03/05/20 05:02 Ferritin 1320.0 ng/mL (30.0-300.0) H 03/02/20 14:39 Total Bilirubin 0.50 mg/dL (0.1-1.2) 03/02/20 14:39 Direct Bilirubin < 0.2 mg/dL (0-0.2) 03/02/20 14:39 Indirect Bilirubin 0.3 mg/dL 03/02/20 14:39 AST 29 units/L (5-40) 03/02/20 14:39 ALT 15 units/L (7-56) 03/02/20 14:39 Alkaline Phosphatase 56 units/L (35-129) 03/02/20 14:39 Lactate Dehydrogenase 349 units/L (91-180) H 03/02/20 14:39 Total Creatine Kinase 97 units/L (55-170) 03/02/20 14:39 CK-MB (CK-2) < 1.0 ng/mL (0.0-4.0) 03/02/20 14:39 CK-MB (CK-2) Rel Index 1.0 (0-4) 03/02/20 14:39 Troponin T < 0.010 ng/mL (0.00-0.029) 03/02/20 14:39 C-Reactive Protein 3.90 mg/dL (0.00-1.30) H 03/02/20 14:39 NT-Pro-B Natriuret Pep 34.21 pg/mL (0-900) 03/02/20 14:39 Total Protein 7.3 g/dL (6.3-8.2) 03/02/20 14:39 Albumin 3.5 g/dL (3.9-5) L 03/02/20 14:39 Albumin/Globulin Ratio 0.9 % 03/02/20 14:39 Procalcitonin 0.05 ng/mL (<0.15) 03/02/20 14:39 Urine Color Yellow (Yellow) 03/02/20 Unknown Urine Turbidity Clear (Clear) 03/02/20 Unknown Urine pH 5.0 (5.0-7.0) 03/02/20 Unknown Ur Specific [place] 1.025 (1.003-1.030) 03/02/20 Unknown Urine Protein 30 mg/dl mg/dL (Negative) 03/02/20 Unknown Urine Glucose (UA) Neg mg/dL (Negative) 03/02/20 Unknown Urine Ketones Neg mg/dL (Negative) 03/02/20 Unknown Urine Blood Sm (Negative) 03/02/20 Unknown Urine Nitrite Neg (Negative) 03/02/20 Unknown Urine Bilirubin Neg (Negative) 03/02/20 Unknown Urine Urobilinogen < 2.0 mg/dL (<2.0) 03/02/20 Unknown Ur Leukocyte Esterase Neg (Negative) 03/02/20 Unknown Urine WBC (Auto) 4.0 /HPF (0.0-6.0) 03/02/20 Unknown Urine RBC (Auto) 1.0 /HPF (0.0-6.0) 03/02/20 Unknown Urine Mucus Few /HPF 03/02/20 Unknown Coronavirus (PCR) Positive (Negative) A 03/03/20 Unknown Influenza A (Rapid) Negative (Negative) 03/03/20 11:30 Influenza A (RT-PCR) Negative (Negative) 03/03/20 11:30 Influenza B (Rapid) Negative (Negative) 03/03/20 11:30 Influenza B (RT-PCR) Negative (Negative) 03/03/20 11:30 SARS-CoV-2 IgG Ab Nonreactive (NonReactive) 03/03/20 05:16 Microbiology: Microbiology 03/02/20 14:39 Peripheral/Venous Blood Culture - Preliminary NO GROWTH AFTER 4 DAYS 03/02/20 14:44 Peripheral/Venous Blood Culture - Preliminary NO GROWTH AFTER 4 DAYS [place]/IV: Voiding Method Urinal IV Catheter Type [Left Hand] INT / Saline Lock IV Catheter Type [Right INT / Saline Lock Antecubital] Active Medications - Current Medications Current Medications: Generic Name Dose Route Start Last Admin Trade Name Freq PRN Reason Stop Dose Admin Acetaminophen 650 mg 03/02/20 17:00 03/02/20 22:59 Tylenol PO 650 mg Q4H PRN Administration Pain MILD(1-3)/Fever >100.5/GRIJALVA Hydrocodone Bitart/Acetaminophen 1 each 03/02/20 18:00 [place] 5/325 PO Q6HR PRN PAIN Albuterol 2.5 mg 03/02/20 16:35 Proventil IH Q4HRT PRN Shortness Of Breath Heparin Sodium (Porcine) 5,000 unit 03/02/20 22:00 03/07/20 10:05 Heparin SUB-Q 5,000 unit Q12HR BAILEY Administration REMDESIVIR 200 mg/ Sodium 250 mls @ 500 mls/hr 03/07/20 13:00 Chloride IV 03/07/20 13:29 ONCE ONE REMDESIVIR 100 mg/ Sodium 250 mls @ 500 mls/hr 03/08/20 21:00 Chloride IV 03/11/20 21:29 Q24HR@2100 BAILEY Levothyroxine Sodium 50 mcg 03/03/20 06:00 03/07/20 05:24 Synthroid PO 50 mcg DAILY@0600 BAILEY Administration Methylprednisolone Sodium Succinate 40 mg 03/02/20 22:00 03/07/20 05:24 Solu-Medrol IV 40 mg Q8HR BAILEY Administration Ondansetron HCl 4 mg 03/02/20 18:00 Zofran IV Q8H PRN Nausea And Vomiting Ondansetron HCl 4 mg 03/02/20 18:00 Zofran Odt PO Q8H PRN Nausea Sodium Chloride 10 ml 03/02/20 22:00 03/07/20 10:06 Sodium Chloride Flush Syringe 10 Ml IV 10 ml BID BAILEY Administration Sodium Chloride 10 ml 03/02/20 16:35 03/05/20 06:27 Sodium Chloride Flush Syringe 10 Ml IV 10 ml PRN PRN Administration LINE FLUSH Sodium Chloride 50 ml 03/07/20 13:30 Sodium Chloride 0.9% 50 Ml Ivpb IV 03/11/20 21:01 Q24HR@2100 BAILEY Tamsulosin HCl 0.4 mg 03/03/20 10:00 03/07/20 10:06 Flomax PO 0.4 mg QDAY BAILEY Administration
[2020-03-07] MEDS ORDERED: REMDESIVIR 100 MG VIAL IV ONE (13:00)
[2020-03-07] MEDS ORDERED: REMDESIVIR 200 MG in SODIUM CHLORIDE 0.9% 250ML 250 ML IV ONE (13:00)
[2020-03-07 14:58] LABS: C-Reactive Protein 0.3 mg/dL (0.00-1.30)
[2020-03-07] MEDS: SODIUM CHLORIDE 0.9% 50 ML IVPB IV SCH (17:40)
[2020-03-08] MEDS: methylPREDNISolone Sod Succinate 40 MG/1 ML INJ IV SCH ×3 (05:23→21:15)
[2020-03-08] MEDS: LEVOTHYROXINE 50 MCG TAB PO SCH (05:23)
--- NOTE | 2020-03-08 08:44 | Progress Note ---
Assessment and Plan Cultures: Blood culture no growth today SARS CoV2 PCR positive SARS Covid 2 IgG negative Assessment: 59 years old male with history of GERD, hypothyroidism, osteoarthritis, diagnosed with COVID-19 infection as an outpatient, admitted on 03/02/2020 due to worsening generalized malaise, fatigue, loss of sense of taste and smell, dry cough shortness of breath for the last 3 days: #Severe sepsis: Present with fever and hypoxia upon ambulation. Likely due to COVID-19 pneumonia. #Severe COVID pneumonia: Chest x-ray with left-sided infiltrates. Inflammatory markers elevated with ferritin 1320, D-dimer 427--D-dimer going up at 517. Ferritin improving. #Acute hypoxemic respiratory failure: O2 sat dropped to 88% on ambulation. Remains on 4 L nasal cannula. Recommendations: -Continue steroids -Continue remdesivir total 5 days-D2 of 5 -Monitor inflammatory markers - ferritin, Ddimer, CRP, LDH -Patient may benefit from Covid convalescent plasma, he is seronegative -Continue anticoagulation per System Protocol -Prone positioning as possible All laboratory, cultures and imaging were reviewed. Will follow Krystal Veras MD Infectious Diseases Electrical Maintenance Mechanic [facility] M [phone] O [phone] Subjective Date of service: 03/08/20 Principal diagnosis: COVID Interval history: Patient remains on 4 L nasal cannula, no fever, desaturations noted. Objective - Exam Narrative Exam: Review of Systems: reviewed ED and H&P notes. Deferred to prevent COVID-19 transmission. - Constitutional Vitals: Vital Signs Temp Pulse Resp BP Pulse Ox 97.4 F L 49 L 20 131/71 92 03/08/20 06:25 03/08/20 06:25 03/07/20 22:50 03/08/20 06:25 03/08/20 06:25 Temperature -Last 24 Hours Temperature 97.4 F Temperature 97.7 F Temperature 98.1 F - Labs CBC & Chem 7: 03/03/20 04:00 03/05/20 05:02 Labs: Abnormal lab results 03/07/20 03/07/20 03/07/20 Range/Units 13:26 13:26 13:26 D-Dimer 517.35 H (0-234) ng/mlDDU Ferritin 1062.0 H (30.0-300.0) ng/mL Lactate Dehydrogenase 301 H (91-180) units/L
[2020-03-08] MEDS: TAMSULOSIN 0.4 MG CAP PO SCH (09:28)
[2020-03-08] MEDS: HEPARIN 5,000 UNIT/1 ML VIAL SUB-Q SCH ×2 (09:30→21:15)
--- NOTE | 2020-03-08 13:21 | Progress Note ---
Subjective Date of service: 03/08/20 Principal diagnosis: COVID Interval history: Assessment and plan: 59 YO Male with GERD, Hypothyroidism, OA, Coronavirus Infection currently on home isolation presents to ED for evaluation. Patient states that he has experienced generalized weakness, fatigue, decreased exercise tolerance, loss of sense of taste, loss of sense of smell, dry cough, and shortness of breath over the past week with persistently worsening symptoms over the past 3 days. Patient transported to [facility] via private vehicle for further care and evaluation of the aforementioned symptoms. Patient seen and evaluated in the emergency department. All lab and imaging studies reviewed. Patient found to have pulse oximetry of 88% on room air with exertion which is a consistent with acute hypoxemic respiratory failure. Patient underwent chest x-ray which showed bilateral pneumonia. Patient admitted to medical floor and initiated on pneumonia protocol as well as COVID-19 protocol. Patient denies chills, chest pain, palpitation, skin rash, or recent ill contacts. 03/04: Patient seen and examined, resting comfortable but reports significant shortness of breath with exertion. 03/05: Continue Current care, encourage prone positioning. Continue oxygen therapy, continue Remdesivir and steroids 03/06: Discussed with pharmacy team today they will reach out to infectious disease physician to see if patient will benefit from the remdesivir being that he is on oxygen per the policy of [facility]. Continue Decadron at this time. 03/07: Patient continues with oxygen, STARTED ON Remdesivir, wean oxygen as tolerated. 03/08 patient is alert and oriented x3 and is lying down in prone position. Offers no specific complaints. He denies any shortness of breath or cough. Denies fever or chills. ID note reviewed. Lab results reviewed (1) Acute hypoxemic respiratory failure Current Visit: Yes Status: Acute Plan to address problem: Improving. Denies shortness of breath at rest but desaturates with ambulation in the low 80s. Continue oxygen via nasal cannula at 4 L Chest X ray, supplemental oxygen, pulse oximetry, prone positioning while in bed, noninvasive positive pressure ventilation as clinically indicated, if patient is unable to maintain oxygen saturation via submental oxygen via nasal cannula will then initiate high flow oxygen. (2) COVID-19 virus infection Current Visit: Yes Status: Acute Plan to address problem: ID note reviewed Continue IV remdesivir day 2 of 5 Continue Decadron Inflammatory markers reviewed , ferritin trending down but D-dimer is trending up May need to change to therapeutic anticoagulation if it trends up further Continue contact isolation precautions Prone positioning as much as possible (3) Hypothyroidism Current Visit: Yes Status: Acute Qualifiers: Hypothyroidism type: acquired Qualified Code(s): E03.9 - Hypothyroidism, unspecified Plan to address problem: Continue Synthroid, supportive care. (4) GERD (gastroesophageal reflux disease) Current Visit: Yes Status: Acute Qualifiers: Esophagitis presence: without esophagitis Qualified Code(s): K21.9 - Gastro-esophageal reflux disease without esophagitis Plan to address problem: PPI therapy (5) Pneumonia-secondary to Covid pneumonitis Current Visit: Yes Status: Acute Qualifiers: Pneumonia type: due to unspecified organism Laterality: bilateral Lung location: unspecified part of lung Qualified Code(s): J18.9 - Pneumonia, unspecified organism Plan to address problem: Pneumonia protocol implemented Continue antiviral therapy and steroids (6) DVT prophylaxis Current Visit: Yes Status: Acute Plan to address problem: SCD to bilateral lower extremities while in bed, prophylactic anticoagulation with heparin subcu Objective - Constitutional Vitals: Vital Signs - 12hr 03/08/20 03/08/20 06:25 08:53 Temperature 97.4 F L Pulse Rate 49 L Blood Pressure 131/71 O2 Sat by Pulse 92 93 Oximetry General appearance: Present: no acute distress - EENT Eyes: PERRL, EOM intact ENT: hearing intact - Neck Neck: supple, normal ROM - Respiratory Respiratory effort: normal Respiratory: bilateral: CTA - Cardiovascular Rhythm: regular Heart Sounds: Present: S1 & S2 - Gastrointestinal General gastrointestinal: Present: soft, non-tender Rectal Exam: deferred - Genitourinary Male genitourinary: deferred - Musculoskeletal Musculoskeletal: strength equal bilaterally - Neurologic Neurologic: no focal deficits - Psychiatric Psychiatric: appropriate mood/affect - Labs CBC & Chem 7: 03/03/20 04:00 03/05/20 05:02 Labs: Abnormal lab results 03/07/20 03/07/20 03/07/20 Range/Units 13:26 13:26 13:26 D-Dimer 517.35 H (0-234) ng/mlDDU Ferritin 1062.0 H (30.0-300.0) ng/mL Lactate Dehydrogenase 301 H (91-180) units/L HEART Score - HEART Score Troponin: Troponin T < 0.010 ng/mL (0.00-0.029) 03/02/20 14:39
[2020-03-08] MEDS: REMDESIVIR 100 MG in SODIUM CHLORIDE 0.9% 250ML 250 ML IV SCH (21:14)
[2020-03-08] MEDS: SODIUM CHLORIDE 0.9% 50 ML IVPB IV SCH (21:15)
[2020-03-09] MEDS: methylPREDNISolone Sod Succinate 40 MG/1 ML INJ IV SCH ×3 (05:25→21:15)
[2020-03-09] MEDS: LEVOTHYROXINE 50 MCG TAB PO SCH (05:25)
--- NOTE | 2020-03-09 09:58 | Progress Note ---
Assessment and Plan Cultures: Blood culture no growth today SARS CoV2 PCR positive SARS Covid 2 IgG negative Assessment: 59 years old male with history of GERD, hypothyroidism, osteoarthritis, diagnosed with COVID-19 infection as an outpatient, admitted on 03/02/2020 due to worsening generalized malaise, fatigue, loss of sense of taste and smell, dry cough shortness of breath for the last 3 days: #Severe sepsis: Present with fever and hypoxia upon ambulation. Likely due to COVID-19 pneumonia. #Severe COVID pneumonia: Chest x-ray with left-sided infiltrates. Inflammatory markers elevated with ferritin 1320, D-dimer 427--D-dimer going up at 517. Ferritin improving. #Acute hypoxemic respiratory failure: O2 sat dropped to 88% on ambulation. Remains on 5 L nasal cannula. Recommendations: -Obtain venous ultrasound rule out DVT -Continue steroids -Continue remdesivir total 5 days-D3 of 5 -Monitor inflammatory markers - ferritin, Ddimer, CRP, LDH recheck today with CBC -Patient may benefit from Covid convalescent plasma, he is seronegative, please further plasma -Continue anticoagulation per System Protocol -Prone positioning as possible All laboratory, cultures and imaging were reviewed. Will follow Krystal Veras MD Infectious Diseases Veterinary Epidemiologist [facility] M [phone] O [phone] Subjective Date of service: 03/09/20 Principal diagnosis: COVID Interval history: Patient is now 5 L nasal cannula, no fever Objective - Exam Narrative Exam: Review of Systems: reviewed ED and H&P notes. Deferred to prevent COVID-19 transmission. - Constitutional Vitals: Vital Signs Temp Pulse Resp BP Pulse Ox 97.7 F 48 L 16 145/77 97 03/09/20 04:00 03/09/20 04:00 03/09/20 04:00 03/09/20 04:00 03/09/20 09:27 Temperature -Last 24 Hours Temperature 97.7 F Temperature 97.5 F Temperature 97.9 F Temperature 97.5 F - Labs CBC & Chem 7: 03/03/20 04:00 03/05/20 05:02
[2020-03-09] MEDS: HEPARIN 5,000 UNIT/1 ML VIAL SUB-Q SCH ×2 (10:54→21:15)
[2020-03-09] MEDS: TAMSULOSIN 0.4 MG CAP PO SCH (10:54)
[2020-03-09 11:26] LABS: Hematocrit 40.5 % (35.5-45.6); Hemoglobin 13.9 gm/dl (11.8-15.2); Mean Corpuscular HGB Conc 34 % (32-34); Mean Corpuscular Volume 93 fl (84-94); Platelet Count 302 K/mm3 (140-440); Red Blood Count 4.34 M/mm3 (3.65-5.03)
[2020-03-09 11:49] LABS: Alanine Aminotransferase 27 units/L (7-56); BUN/Creatinine Ratio 28; Blood Urea Nitrogen 22 mg/dL (9-20); Calcium 8.7 mg/dL (8.4-10.2); Hemolysis Index 8
[2020-03-09 11:55] LABS: Bilirubin,Direct < 0.2 mg/dL (0-0.2)
[2020-03-09 13:13] LABS: Band Neutrophils # (Manual) 0.2 K/mm3; Total Cells Counted 100
[2020-03-09 13:17] LABS: Anisocytosis 1+; Large Platelets Few; Platelet Estimate Consistent w Auto
--- NOTE | 2020-03-09 16:07 | Progress Note ---
Subjective Date of service: 03/09/20 Principal diagnosis: COVID Interval history: Assessment and plan: 59 YO Male with GERD, Hypothyroidism, OA, Coronavirus Infection currently on home isolation presents to ED for evaluation. Patient states that he has experienced generalized weakness, fatigue, decreased exercise tolerance, loss of sense of taste, loss of sense of smell, dry cough, and shortness of breath over the past week with persistently worsening symptoms over the past 3 days. Patient transported to [facility] via private vehicle for further care and evaluation of the aforementioned symptoms. Patient seen and evaluated in the emergency department. All lab and imaging studies reviewed. Patient found to have pulse oximetry of 88% on room air with exertion which is a consistent with acute hypoxemic respiratory failure. Patient underwent chest x-ray which showed bilateral pneumonia. Patient admitted to medical floor and initiated on pneumonia protocol as well as COVID-19 protocol. Patient denies chills, chest pain, palpitation, skin rash, or recent ill contacts. 03/04: Patient seen and examined, resting comfortable but reports significant shortness of breath with exertion. 03/05: Continue Current care, encourage prone positioning. Continue oxygen therapy, continue Remdesivir and steroids 03/06: Discussed with pharmacy team today they will reach out to infectious disease physician to see if patient will benefit from the remdesivir being that he is on oxygen per the policy of [facility]. Continue Decadron at this time. 03/07: Patient continues with oxygen, STARTED ON Remdesivir, wean oxygen as tolerated. 03/08 patient is alert and oriented x3 and is lying down in prone position. Offers no specific complaints. He denies any shortness of breath or cough. Denies fever or chills. ID note reviewed. Lab results reviewed 03/09 no specific complaints. ID note reviewed and discussed with Dr. Flores (1) Acute hypoxemic respiratory failure Current Visit: Yes Status: Acute Plan to address problem: Improving. Denies shortness of breath at rest but desaturates with ambulation in the low 80s. Continue oxygen via nasal cannula at 5 L Chest X ray, supplemental oxygen, pulse oximetry, prone positioning while in bed, noninvasive positive pressure ventilation as clinically indicated, if patient is unable to maintain oxygen saturation via submental oxygen via nasal cannula will then initiate high flow oxygen. (2) COVID-19 virus infection Current Visit: Yes Status: Acute Plan to address problem: ID note reviewed Continue IV remdesivir day 3 of 5 Continue Decadron Inflammatory markers reviewed , ferritin trending down but D-dimer is trending up May need to change to therapeutic anticoagulation if it trends up further Continue contact isolation precautions Prone positioning as much as possible Discussed with Dr. Flores (3) Hypothyroidism Current Visit: Yes Status: Acute Qualifiers: Hypothyroidism type: acquired Qualified Code(s): E03.9 - Hypothyroidism, unspecified Plan to address problem: Continue Synthroid, supportive care. (4) GERD (gastroesophageal reflux disease) Current Visit: Yes Status: Acute Qualifiers: Esophagitis presence: without esophagitis Qualified Code(s): K21.9 - Gastro-esophageal reflux disease without esophagitis Plan to address problem: PPI therapy (5) Pneumonia-secondary to Covid 19 Current Visit: Yes Status: Acute Qualifiers: Pneumonia type: due to unspecified organism Laterality: bilateral Lung location: unspecified part of lung Qualified Code(s): J18.9 - Pneumonia, unspecified organism Plan to address problem: Pneumonia protocol implemented Continue antiviral therapy and steroids (6) DVT prophylaxis Current Visit: Yes Status: Acute Plan to address problem: SCD to bilateral lower extremities while in bed, prophylactic anticoagulation with heparin subcu Objective - Constitutional Vitals: Vital Signs - 12hr 03/09/20 03/09/20 09:27 12:03 Temperature 97.5 F L Pulse Rate 66 Respiratory 18 Rate Blood Pressure 130/76 O2 Sat by Pulse 97 93 Oximetry General appearance: Present: no acute distress - EENT Eyes: PERRL, EOM intact ENT: hearing intact, clear oral mucosa - Neck Neck: supple, normal ROM - Respiratory Respiratory effort: normal Respiratory: bilateral: CTA - Cardiovascular Rhythm: regular Heart Sounds: Present: S1 & S2 Extremities: No edema - Gastrointestinal General gastrointestinal: Present: soft, non-tender - Labs CBC & Chem 7: 03/09/20 10:46 03/09/20 10:46 Labs: Abnormal lab results 03/09/20 03/09/20 03/09/20 Range/Units 10:46 10:46 10:46 WBC (4.5-11.0) K/mm3 RDW (13.2-15.2) % Seg Neuts % (Manual) (40.0-70.0) % Lymphocytes % (Manual) (13.4-35.0) % Monocytes % (Manual) (0.0-7.3) % Seg Neutrophils # Man (1.8-7.7) K/mm3 Lymphocytes # (Manual) (1.2-5.4) K/mm3 Monocytes # (Manual) (0.0-0.8) K/mm3 D-Dimer 913.66 H (0-234) ng/mlDDU Carbon Dioxide 31 H (22-30) mmol/L BUN 22 H (9-20) mg/dL Glucose 157 H (75-100) mg/dL Ferritin 1026.0 H (30.0-300.0) ng/mL Lactate Dehydrogenase 269 H (91-180) units/L Total Protein 5.8 L (6.3-8.2) g/dL Albumin 3.0 L (3.9-5) g/dL 03/09/20 Range/Units 10:46 WBC 15.4 H (4.5-11.0) K/mm3 RDW 13.0 L (13.2-15.2) % Seg Neuts % (Manual) 90.0 H (40.0-70.0) % Lymphocytes % (Manual) 1.0 L (13.4-35.0) % Monocytes % (Manual) 8.0 H (0.0-7.3) % Seg Neutrophils # Man 13.9 H (1.8-7.7) K/mm3 Lymphocytes # (Manual) 0.2 L (1.2-5.4) K/mm3 Monocytes # (Manual) 1.2 H (0.0-0.8) K/mm3 D-Dimer (0-234) ng/mlDDU Carbon Dioxide (22-30) mmol/L BUN (9-20) mg/dL Glucose (75-100) mg/dL Ferritin (30.0-300.0) ng/mL Lactate Dehydrogenase (91-180) units/L Total Protein (6.3-8.2) g/dL Albumin (3.9-5) g/dL HEART Score - HEART Score Troponin: Troponin T < 0.010 ng/mL (0.00-0.029) 03/02/20 14:39
[2020-03-09] MEDS: SODIUM CHLORIDE 0.9% 50 ML IVPB IV SCH (21:13)
[2020-03-09] MEDS: REMDESIVIR 100 MG in SODIUM CHLORIDE 0.9% 250ML 250 ML IV SCH (21:13)
[2020-03-10] MEDS: methylPREDNISolone Sod Succinate 40 MG/1 ML INJ IV SCH ×2 (05:25→14:08)
[2020-03-10] MEDS: LEVOTHYROXINE 50 MCG TAB PO SCH (05:25)
--- NOTE | 2020-03-10 10:08 | Progress Note ---
Assessment and Plan Cultures: Blood culture no growth today SARS CoV2 PCR positive SARS Covid 2 IgG negative Assessment: 59 years old male with history of GERD, hypothyroidism, osteoarthritis, diagnosed with COVID-19 infection as an outpatient, admitted on 03/02/2020 due to worsening generalized malaise, fatigue, loss of sense of taste and smell, dry cough shortness of breath for the last 3 days: #Severe sepsis: Present with fever and hypoxia upon ambulation. Likely due to COVID-19 pneumonia. #Severe COVID pneumonia: Chest x-ray with left-sided infiltrates. Inflammatory markers elevated with ferritin 1320, D-dimer 427--D-dimer going up at 517. Ferritin improving. #Acute hypoxemic respiratory failure: O2 sat dropped to 88% on ambulation. Remains on 5 L nasal cannula. #Bradycardia ? remdesivir induced Recommendations: -repeat EKG, consider cards consult -Obtain venous ultrasound rule out DVT - pending - ddimer is increasing -Continue steroids -Continue remdesivir total 5 days-D4 of 5 -Monitor inflammatory markers - ferritin, Ddimer, CRP, LDH recheck today with CBC -Patient may benefit from Covid convalescent plasma, he is seronegative, please further plasma -Continue anticoagulation per System Protocol -Prone positioning as possible All laboratory, cultures and imaging were reviewed. Will follow Krystal Veras MD Infectious Diseases Electrical Contractor [facility] ([facility]) M [phone] O [phone] Subjective Date of service: 03/10/20 Principal diagnosis: COVID Interval history: Patient is now 5 L nasal cannula, no fever, sat 91% Objective - Exam Narrative Exam: Review of Systems: reviewed ED and H&P notes. Deferred to prevent COVID-19 transmission. - Constitutional Vitals: Vital Signs Temp Pulse Resp BP Pulse Ox 97.6 F 53 L 20 141/78 92 03/10/20 04:22 03/10/20 04:22 03/10/20 04:22 03/10/20 04:22 03/10/20 08:41 Temperature -Last 24 Hours Temperature 97.6 F Temperature 98.5 F Temperature 98.5 F Temperature 97.5 F - Labs CBC & Chem 7: 03/09/20 10:46 03/09/20 10:46 Labs: Abnormal lab results 03/09/20 03/09/20 03/09/20 Range/Units 10:46 10:46 10:46 WBC (4.5-11.0) K/mm3 RDW (13.2-15.2) % Seg Neuts % (Manual) (40.0-70.0) % Lymphocytes % (Manual) (13.4-35.0) % Monocytes % (Manual) (0.0-7.3) % Seg Neutrophils # Man (1.8-7.7) K/mm3 Lymphocytes # (Manual) (1.2-5.4) K/mm3 Monocytes # (Manual) (0.0-0.8) K/mm3 D-Dimer 913.66 H (0-234) ng/mlDDU Carbon Dioxide 31 H (22-30) mmol/L BUN 22 H (9-20) mg/dL Glucose 157 H (75-100) mg/dL Ferritin 1026.0 H (30.0-300.0) ng/mL Lactate Dehydrogenase 269 H (91-180) units/L Total Protein 5.8 L (6.3-8.2) g/dL Albumin 3.0 L (3.9-5) g/dL 03/09/20 Range/Units 10:46 WBC 15.4 H (4.5-11.0) K/mm3 RDW 13.0 L (13.2-15.2) % Seg Neuts % (Manual) 90.0 H (40.0-70.0) % Lymphocytes % (Manual) 1.0 L (13.4-35.0) % Monocytes % (Manual) 8.0 H (0.0-7.3) % Seg Neutrophils # Man 13.9 H (1.8-7.7) K/mm3 Lymphocytes # (Manual) 0.2 L (1.2-5.4) K/mm3 Monocytes # (Manual) 1.2 H (0.0-0.8) K/mm3 D-Dimer (0-234) ng/mlDDU Carbon Dioxide (22-30) mmol/L BUN (9-20) mg/dL Glucose (75-100) mg/dL Ferritin (30.0-300.0) ng/mL Lactate Dehydrogenase (91-180) units/L Total Protein (6.3-8.2) g/dL Albumin (3.9-5) g/dL
[2020-03-10] MEDS: TAMSULOSIN 0.4 MG CAP PO SCH (10:29)
[2020-03-10] MEDS: HEPARIN 5,000 UNIT/1 ML VIAL SUB-Q SCH (10:29)
--- NOTE | 2020-03-10 13:10 | Discharge Summary ---
Providers - Providers Date of Admission: 03/02/20 16:35 Attending physician: PADMAJA FRIEND MD 03/03/20 08:35 Consult to Physician [CONS] Routine Comment: Consulting Provider: RIVERA ALTAMIRANO Physician Instructions: Reason For Exam: COVID POSITIVE PER HX Primary care physician: LAB RN Hospitalization Reason for admission: covid19 Condition: Stable Hospital course: 59 YO Male with GERD, Hypothyroidism, OA, Coronavirus Infection currently on home isolation presents to ED for evaluation. Patient states that he has exp erienced generalized weakness, fatigue, decreased exercise tolerance, loss of sense of taste, loss of sense of smell, dry cough, and shortness of breath over the past week with persistently worsening symptoms over the past 3 days. Patient transported to [facility] via private vehicle for further care and evaluation of the aforementioned symptoms. Patient seen and evaluated in the emergency department. All lab and imaging studies reviewed. Patient found to have pulse oximetry of 88% on room air with exertion which is a consistent with acute hypoxemic respiratory failure. Patient underwent chest x-ray which showed bilateral pneumonia. Patient admitted to medical floor and initiated on pneumonia protocol as well as COVID-19 protocol. Patient denies chills, chest pain, palpitation, skin rash, or recent ill contacts. 03/04: Patient seen and examined, resting comfortable but reports significant shortness of breath with exertion. 03/05: Continue Current care, encourage prone positioning. Continue oxygen therapy, continue Remdesivir and steroids 03/06: Discussed with pharmacy team today they will reach out to infectious disease physician to see if patient will benefit from the remdesivir being that he is on oxygen per the policy of [facility]. Continue Decadron at this time. 03/07: Patient continues with oxygen, STARTED ON Remdesivir, wean oxygen as tolerated. 03/08 patient is alert and oriented x3 and is lying down in prone position. Offers no specific complaints. He denies any shortness of breath or cough. Denies fever or chills. ID note reviewed. Lab results reviewed 03/09 no specific complaints. ID note reviewed and discussed with Dr. Flores 03/10: Patient is clinically stable and now off oxygen. I have advised him on need to monitor his oxygen saturation closely Sepsis secondary to Covid pneumonia Acute hypoxemic respiratory failure Current Visit: Yes Status: Acute Plan to address problem: Improving. Denies shortness of breath at rest but desaturates with ambulation in the low 80s. Continue oxygen via nasal cannula at 5 L Chest X ray, supplemental oxygen, pulse oximetry, prone positioning while in bed, noninvasive positive pressure ventilation as clinically indicated, if patient is unable to maintain oxygen saturation via submental oxygen via nasal cannula will then initiate high flow oxygen. COVID-19 virus infection Current Visit: Yes Status: Acute Plan to address problem: ID note reviewed Continue IV remdesivir day 3 of 5 Continue Decadron Inflammatory markers reviewed , ferritin trending down but D-dimer is trending up May need to change to therapeutic anticoagulation if it trends up further Continue contact isolation precautions Prone positioning as much as possible Discussed with Dr. Flores Hypothyroidism Current Visit: Yes Status: Acute Qualifiers: Hypothyroidism type: acquired Qualified Code(s): E03.9 - Hypothyroidism, unspecified Plan to address problem: Continue Synthroid, supportive care. GERD (gastroesophageal reflux disease) Current Visit: Yes Status: Acute Qualifiers: Esophagitis presence: without esophagitis Qualified Code(s): K21.9 - Gastro-esophageal reflux disease without esophagitis Plan to address problem: PPI therapy Pneumonia-secondary to Covid 19 Current Visit: Yes Status: Acute Qualifiers: Pneumonia type: due to unspecified organism Laterality: bilateral Lung location: unspecified part of lung Qualified Code(s): J18.9 - Pneumonia, unspecified organism Plan to address problem: Pneumonia protocol implemented Continue antiviral therapy and steroids Disposition: [id number]/[id number] HOME UNDER [facility] Time spent for discharge: 35 mins Core Measure Documentation - Palliative Care Palliative Care/ Comfort Measures: Not Applicable - Core Measures Any of the following diagnoses?: none Exam - Physical Exam Narrative exam: General appearance: Present: Sitting up in bed - EENT Eyes: Present: PERRL ENT: hearing intact, clear oral mucosa - Neck Neck: Present: supple, normal ROM - Respiratory Respiratory effort: labored, accessory muscle use, stridor Respiratory: bilateral: diminished, rhonchi - Cardiovascular Heart Sounds: Present: S1 & S2. Absent: rub, click - Extremities Extremities: pulses symmetrical, No edema Peripheral Pulses: within normal limits - Abdominal General gastrointestinal: Present: soft, non-tender, non-distended, normal bowel sounds Male genitourinary: Present: normal - Integumentary Integumentary: Present: clear, warm, dry - Musculoskeletal Musculoskeletal: gait normal, strength equal bilaterally - Psychiatric Psychiatric: appropriate mood/affect, intact judgment & insight - Neurologic Neurologic: CNII-XII intact, moves all extremities - Constitutional Vitals: Temp Pulse Resp BP Pulse Ox 97.6 F 53 L 20 141/78 92 03/10/20 04:22 03/10/20 04:22 03/10/20 04:22 03/10/20 04:22 03/10/20 08:41 Plan Activity: advance as tolerated, fall precautions Diet: low fat Special Instructions: record daily weights, record daily BP diary, record blood sugar diary, home oxygen via (nasal cannula @ 2 liters per minute) Follow up with: PRIMARY CARE, [Primary Care Provider] - 7 Days RIVERA ALTAMIRANO MD [Staff Physician] - 7 Days HALLE WALSH MD [Staff Physician] - 7 Days Prescriptions: Dexamethasone [Decadron] 6 mg PO DAILY #3 tablet Apixaban [Eliquis] 2.5 mg PO DAILY #30 tablet Ascorbic Acid [Vitamin C] 1,000 mg PO BID #60 tablet Zinc Sulfate 220 mg PO DAILY #30 tablet
[2020-03-10] MEDS ORDERED: REMDESIVIR 100 MG in SODIUM CHLORIDE 0.9% 250ML 250 ML IV SCH (18:00)
[2020-03-10 18:17] VITALS: BP 133/79
== END 2020-03-10 19:35 | disposition home health service (06) | DRG 871 ==
LOC: ED 13:40 → 3A 16:35
PROVIDERS: ADMIT Internal Medicine; ATTEND Internal Medicine
PROC: XW033E5 Introduction of Remdesivir Anti-infective into Peripheral Vein, Percutaneous Approach, New Technology Group 5 (ICD-10-PCS; principal; 2020-03-07)
DX: A41.89 Other specified sepsis (principal); U07.1 COVID-19; J12.89 Other viral pneumonia; J96.01 Acute respiratory failure with hypoxia; R65.20 Severe sepsis without septic shock; K21.9 Gastro-esophageal reflux disease without esophagitis; Z87.442 Personal history of urinary calculi; Z82.49 Family history of ischemic heart disease and other diseases of the circulatory system; E03.9 Hypothyroidism, unspecified; R00.1 Bradycardia, unspecified
CPT/HCPCS: 36415; 71045; 80048; 80076; 81001; 82140; 82550; 82553; 82728; 82805; 82947; 83615; 83880; 84145; 84484; 85007; 85025; 85379; 85610; 85730; 86140; 87040; 87086; 87400; 93005; 94760; 96365; 96375; G0378; 87502; J0456; J0696; J1644; J1885; J1940; J2920; J7040; J7050; U0003

== ENCOUNTER 2020-04-14 07:37 | Day surgery (SDC) | payer BC ==
--- NOTE | 2020-04-14 07:30 | Anesthesia Consultation ---
Anesthesia Consult and Med Hx Date of service: 04/14/20 - Airway Anesthetic Teeth Evaluation: Good ROM Head & Neck: Adequate Mental/Hyoid Distance: Adequate Mallampati Class: Class I Intubation Access Assessment: Good (previous LMA 4) - Pulmonary Exam CTA: Yes - Cardiac Exam Cardiac Exam: RRR - Pre-Operative Health Status ASA Pre-Surgery Classification: ASA2 Proposed Anesthetic Plan: General - Pulmonary Hx Smoking: Yes (quit 38yrs ago) Hx Respiratory Symptoms: No Hx Pneumonia: Yes (COVID PNA 02/2020; symptoms resolved) Hx Sleep Apnea: No (JENNIFER PRE SCREEN LOW RISK) - Cardiovascular System Hx Hypertension: No - Central Nervous System CVA: No Hx Back Pain: Yes - Gastrointestinal Hx Gastroesophageal Reflux Disease: Yes - Endocrine Hx Renal Disease: No Hx Liver Disease: No Hx Insulin Dependent Diabetes: No Hx Non-Insulin Dependent Diabetes: No Hx Hypothyroidism: Yes - Other Systems Hx Obesity: No - Additional Comments Anesthesia Medical History Comments: No hx anesthetic complications.
--- NOTE | 2020-04-14 07:30 | Anesthesia Day of Surgery ---
Anesthesia Day of Surgery - Day of Surgery Patient Examined: Yes Patient H&P Reviewed: Yes Patient is NPO: Yes
[~2020-04-14 07:37] MED LIST changes: +MIDAZOLAM 2 MG/2 ML INJ IV NR
[2020-04-14] MEDS ORDERED: ceFAZolin/STERILE WATER 2 GM/20 ML SYRINGE IV NR (08:42)
[2020-04-14] MEDS ORDERED: ONDANSETRON 4 MG/2 ML INJ ONE ×2 (08:45→11:11)
[2020-04-14] MEDS ORDERED: LIDOCAINE MPF (2%) 20 MG/1 ML VIAL 5 ML ONE (08:45)
[2020-04-14] MEDS ORDERED: propofoL 200 MG/20 ML VIAL IV ONE (08:46)
--- NOTE | 2020-04-14 08:56 | XRay Report ---
ABDOMEN 1 VIEW 04/14/2020 8:35 AM INDICATION / CLINICAL INFORMATION: RIGHT KIDNEY STONE. COMPARISON: CT scan dated 02/02/2020 FINDINGS: TUBES / LINES: None. BOWEL GAS PATTERN: No significant abnormality. FREE AIR / EXTRALUMINAL GAS: None. ADDITIONAL FINDINGS: There is an 8 mm stone which projects in the affected location of the right bronson l pelvis. 2 small phleboliths are noted in the pelvis. IMPRESSION: 1. There is an 8 mm stone which projects in expected location of the right renal pelvis. Signer Name: Herberth Benton MD Signed: 04/14/2020 8:51 AM Workstation Name: [id number]
[2020-04-14] MEDS ORDERED: fentaNYL 250 MCG/5 ML INJ ONE (10:02)
[2020-04-14] MEDS ORDERED: fentaNYL 100 MCG/2 ML INJ ONE (10:03)
[2020-04-14] MEDS ORDERED: IOHEXOL 300 MG/ML 50ML IV ONE (10:07)
[2020-04-14] MEDS ORDERED: ePHEDrine SULFATE 50 MG/1 ML INJ ONE (10:07)
[2020-04-14] MEDS ORDERED: WATER FOR IRRIG STERILE 2000 ML IR ONE (10:07)
[2020-04-14] MEDS ORDERED: HYDROcodone/ACETAMINOPHEN 5-325 MG TAB PO ONE (11:02)
[2020-04-14] MEDS ORDERED: ONDANSETRON 4 MG/2 ML INJ IV ONE (11:14)
--- NOTE | 2020-04-14 11:47 | Post Anesthesia Evaluation ---
- Post Anesthesia Evaluation Patient Participated: Yes Airway Patent: Yes Stable Respiratory Function: Yes Nausea/Vomiting: No Temp > 96.8F: Yes Pain Manageable: Yes Adequeate Hydration: Yes Anesthesia Complications: No
--- NOTE | 2020-04-14 11:54 | Discharge Summary ---
Short Stay Discharge Plan Activity: other (no straining ) Weight Bearing Status: Full Weight Bearing Diet: low fat, low cholesterol, low salt Special Instructions: other (inc fluids ) Durable Medical Equipment Needed Upon Discharge: other (has stent ) Follow up with: PRIMARY CARE, [Primary Care Provider] - 7 Days SARINA ARNOLD MD [Staff Physician] - 7 Days
--- NOTE | 2020-04-14 11:55 | Post Operative Note ---
Date of procedure: 04/14/20 Pre-op diagnosis: r ureteral sone Post-op diagnosis: same Findings: as above Procedure: cysto stent eswl r Anesthesia: GETA Surgeon: SARINA ARNOLD Estimated blood loss: none Pathology: none Condition: stable Disposition: PACU
--- NOTE | 2020-04-14 11:55 | Discharge Summary ---
Short Stay Discharge Plan Activity: other (no straining ) Weight Bearing Status: Full Weight Bearing Diet: low fat, low cholesterol, low salt Special Instructions: other (inc fluids ) Durable Medical Equipment Needed Upon Discharge: other (j stent ) Follow up with: SARINA ARNOLD MD [Staff Physician] - 7 Days PRIMARY CARE, [Primary Care Provider] - 7 Days
[2020-04-14 12:29] VITALS: BP 153/86
--- NOTE | 2020-04-14 12:29 | Operative Report ---
PREOPERATIVE DIAGNOSIS: Right upper ureteral stone, very dense. POSTOPERATIVE DIAGNOSIS: Right upper ureteral stone, very dense. PROCEDURE: Right ESWL followed by cystoscopy, right double-J stent and transposition of the stone. SURGEON: Dr. Demetri Webster ANESTHESIA: General. FINDINGS: This is a gentleman with upper ureteral stone, which was quite dense. He now presents for treatment. DESCRIPTION OF PROCEDURE: The patient was brought to the operating table. Following induction of anesthesia, placed in the supine position. Stone was easily located. At this point, lithotripsy was carried out. We had to gate him at about 1500 because of PVCs. Once we were shocking the stone, it did break a little bit, but not sufficiently to be dislodged from the upper ureter. We were nervous that he would be obstructed and had severe pain. At that point, he was placed in lithotomy position after lithotripsy and sure enough the stones in the upper ureter pushed into the lower pole and a double J coiled. The patient tolerated the procedure well and brought to recovery in stable condition. JOB# [id number] TAVO/INGA
== END 2020-04-14 12:00 | disposition home or self-care (01) ==
LOC: OR 07:37
PROVIDERS: ATTEND Urology
DX: N20.1 Calculus of ureter (principal); E03.9 Hypothyroidism, unspecified; K21.9 Gastro-esophageal reflux disease without esophagitis; M19.90 Unspecified osteoarthritis, unspecified site; Z86.19 Personal history of other infectious and parasitic diseases; Z79.899 Other long term (current) drug therapy; Z87.891 Personal history of nicotine dependence; Z87.01 Personal history of pneumonia (recurrent); Z98.890 Other specified postprocedural states
CPT/HCPCS: 50590; 52332; 74018; A4217; C1726; C1758; C1769; C2617; J0690; J2250; J2405; J2704; J3010; J7120; Q9967; U0003

== ENCOUNTER 2020-05-16 08:02 | Day surgery (SDC) | payer BC ==
--- NOTE | 2020-05-16 09:19 | Anesthesia Consultation ---
Anesthesia Consult and Med Hx Date of service: 05/16/20 - Airway Anesthetic Teeth Evaluation: Good, Chipped (#12), Crowns ROM Head & Neck: Adequate Mental/Hyoid Distance: Adequate Mallampati Class: Class II Intubation Access Assessment: Probably Good - Pre-Operative Health Status ASA Pre-Surgery Classification: ASA2 Proposed Anesthetic Plan: General - Pulmonary Hx Smoking: Yes (QUIT 36 YRS AGO) Hx Asthma: No Hx Respiratory Symptoms: No COPD: No Hx Pneumonia: Yes (COVID PNA 02/2020; symptoms resolved) Hx Sleep Apnea: No (JENNIFER PRE SCREEN HIGH RISK) - Cardiovascular System Hx Hypertension: No Hx Coronary Artery Disease: No Hx Heart Attack/AMI: No (PATIENT STATED NO HEART ATTACK BUT[ RBBB ]) Hx Angina: No Hx Percutaneous Transluminal Coronary Angioplasty (PTCA): No Hx Pacemaker: No Hx Internal Defibrillator: No Hx Valvular Heart Disease: No Hx Heart Murmur: No Hx Peripheral Vascular Disease: No - Central Nervous System Hx Seizures: No CVA: No Hx Back Pain: Yes (OCC.) Hx Psychiatric Problems: No - Gastrointestinal Hx Ulcer: No Hx Gastroesophageal Reflux Disease: Yes - Endocrine Hx Renal Disease: Yes (kidney stones) Hx Cirrhosis: No Hx Liver Disease: No Hx Insulin Dependent Diabetes: No Hx Non-Insulin Dependent Diabetes: No Hx Hypothyroidism: Yes Hx Hyperthyroidism: No - Hematic Hx Anemia: No Hx Sickle Cell Disease: No - Other Systems Hx Alcohol Use: Yes (OCC. BEER) Hx Cancer: No Hx Obesity: No
--- NOTE | 2020-05-16 09:20 | Anesthesia Day of Surgery ---
Anesthesia Day of Surgery - Day of Surgery Patient Examined: Yes Patient H&P Reviewed: Yes Patient is NPO: Yes
[2020-05-16] MEDS ORDERED: LACTATED RINGERS 1,000 ML IV SCH (09:30)
[2020-05-16] MEDS ORDERED: CELECOXIB 200 MG CAP PO NR (10:00)
[2020-05-16] MEDS ORDERED: FAMOTIDINE 20 MG/2 ML INJ IV NR (10:00)
[2020-05-16] MEDS ORDERED: GABAPENTIN 500 MG/10 ML ORAL LIQD PO NR (10:00)
[2020-05-16] MEDS ORDERED: MIDAZOLAM 2 MG/2 ML INJ IV NR (10:00)
[2020-05-16] MEDS ORDERED: ceFAZolin/STERILE WATER 2 GM/20 ML SYRINGE IV NR (11:00)
[2020-05-16] MEDS ORDERED: dexAMETHasone 20 MG/5 ML VIAL ONE (11:17)
[2020-05-16] MEDS ORDERED: LIDOCAINE MPF (2%) 20 MG/1 ML VIAL 5 ML ONE (11:17)
[2020-05-16] MEDS ORDERED: ONDANSETRON 4 MG/2 ML INJ ONE (11:17)
[2020-05-16] MEDS ORDERED: PHENYLEPHRINE/NS 1,000 MCG/10 ML SYRINGE (OR USE) IV ONE (11:17)
[2020-05-16] MEDS ORDERED: fentaNYL 100 MCG/2 ML INJ ONE (11:18)
[2020-05-16] MEDS ORDERED: propofoL 200 MG/20 ML VIAL IV ONE (11:18)
[2020-05-16] MEDS ORDERED: WATER FOR IRRIG STERILE 2000 ML IR ONE (11:46)
[2020-05-16] MEDS ORDERED: WATER FOR IRRIG STERILE 1,500 ML BOTTLE IR ONE (11:47)
--- NOTE | 2020-05-16 12:50 | Post Operative Note ---
Date of procedure: 05/16/20 Pre-op diagnosis: renal ureteral stone Post-op diagnosis: same Findings: as above Procedure: as above cysto rpg ureteroscopy laser stent Anesthesia: GETA Surgeon: SARINA ARNOLD Estimated blood loss: none Pathology: none Condition: stable Disposition: PACU
--- NOTE | 2020-05-16 12:51 | Discharge Summary ---
Short Stay Discharge Plan Activity: other (no straining ) Weight Bearing Status: Full Weight Bearing Diet: regular Special Instructions: other (do not pull string ) Durable Medical Equipment Needed Upon Discharge: other (j stent ) Follow up with: AKOSUA BERGMAN MD [Primary Care Provider] - 7 Days SARINA ARNOLD MD [Staff Physician] - 7 Days
--- NOTE | 2020-05-16 13:33 | Operative Report ---
PREOPERATIVE DIAGNOSIS: A 9 mm ureteropelvic junction stone post-lithotripsy. POSTOPERATIVE DIAGNOSIS: A 9 mm ureteropelvic junction stone post-lithotripsy. PROCEDURE: Cystoscopy, right retrograde, right ureteroscopy, laser of stone into multiple fragments. SURGEON: Dr. Webster. ANESTHESIA: General. FINDINGS: This is a gentleman with a large stone in the kidney. DESCRIPTION OF PROCEDURE: Following induction of anesthesia, placed in lithotomy position, prepped and draped in usual sterile fashion. The stent was removed. We could not get a wire to go through the stent, so we removed the stent and placed a wire up in the kidney without difficulty. Retrograde showed the system and showed where the stone was. Flexible ureteroscope was placed in the kidney and laser of the stone in the upper pole was prominent in multiple fragments. The patient tolerated the procedure well. No significant complications. We used a 270 fiber. A double J coiled in the kidney and bladder, we left the string, tolerated the procedure well and brought to recovery in stable condition. JOB# [id number] TAVO/INGA
[2020-05-16 13:46] VITALS: BP 145/81
[2020-05-16] MEDS ORDERED: ONDANSETRON 4 MG/2 ML INJ IV PRN (14:00)
[2020-05-16] MEDS ORDERED: HYDROcodone/ACETAMINOPHEN 5-325 MG TAB PO PRN (14:00)
--- NOTE | 2020-05-16 16:08 | Fluoroscopy Report ---
4 fluoroscopic images submitted Indication: Intraoperative localization Impression: 4 images of the abdomen were submitted for documentation purposes with radiology involve ment. Right-sided double-J ureteroscopy and stone removal with stent exchange. A total of roughly 5 mL of Omnipaque 300 was utilized for this exam. Please refer to the operative note for complete deta ils. Fluoroscopic time: 2 minutes and 21 seconds Signer Name: Hardeep Cristina MD Signed: 05/16/2020 4:04 PM Workstation Name: [id number]
== END 2020-05-16 14:20 | disposition home or self-care (01) ==
LOC: OR 08:02
PROVIDERS: ATTEND Urology
DX: N20.1 Calculus of ureter (principal); U07.1 COVID-19; E03.9 Hypothyroidism, unspecified; K21.9 Gastro-esophageal reflux disease without esophagitis; Z72.89 Other problems related to lifestyle; Z79.899 Other long term (current) drug therapy; Z87.891 Personal history of nicotine dependence; Z87.01 Personal history of pneumonia (recurrent); Z98.890 Other specified postprocedural states
CPT/HCPCS: 52356; 74420; A4217; C1758; C1769; C2617; J0690; J1100; J2370; J2405; J2704; J3010; J7120; Q9967